=== PATIENT | male | born 1940 | race African-American/Black ===

== ENCOUNTER 2017-05-15 17:36 | Inpatient (IN) | payer MEDICARE ==
[2017-05-15 17:55] LABS: #Eosinphils 0.1 thou/uL (0.0-0.7); #Lymphocytes 2.1 thou/uL (1.20-3.40); #Monocytes 0.7 thou/uL (0.11-0.59); #Neutrophils 9.1 thou/uL (1.40-6.50); %Basophils 0.2 % (0.0-1.0); %Eosinophils 0.9 % (0.0-10.0); %Lymphocytes 17.5 % (21.0-51.0); %Monocytes 5.8 % (0.0-10.0); %Neutrophils 75.7 % (42.0-75.0); Hemoglobin 13.7 g/dL (14.0-18.0); Mean Corpuscular HGB CONC 32.6 g/dL (32.0-36.0); Mean Corpuscular Hemoglobin 29.4 pg (27.0-31.0); Mean Corpuscular Volume 90.4 fl (80.0-94.0); Mean Platelet Volume 7.1 fL (7.4-10.4); Platelet Count 543 thou/uL (130-400); RBC Distribution Width 14.2 % (11.5-14.5); Red Blood Cell (RBC) Count 4.65 mill/uL (4.70-6.10)
[2017-05-15 18:00] LABS: INR-International Normal Ratio 1.1; PTT 30.9 SEC (22.9-36.1)
[2017-05-15] MEDS ORDERED: niCARdipine 20MG In NaCl 20 MG/200 ML BAG ONE (18:00)
[2017-05-15 18:09] LABS: ALT (SGPT) 31 U/L (8-55); AST (SGOT) 28 U/L (5-34); Albumin 3.9 g/dL (3.4-4.8); Alkaline Phosphatase 90 U/L (40-150); Anion Gap 12 mmol/L (10-20); BUN (Urea Nitrogen) 18 mg/dL (8.4-25.7); Bilirubin, Total 0.4 mg/dL (0.2-1.2); Calc. Creatinine Clearance 0 mL/min (70-130); Calcium 9.4 mg/dL (7.8-10.44); Carbon Dioxide 26 mmol/L (23-31); Chloride 105 mmol/L (98-107); Estimated GFR-MDRD 67; Globulin 3.6 g/dL (2.4-3.5); Glucose 95 mg/dL (83-110); Protein, Total 7.5 g/dL (5.8-8.1); Sodium 139 mmol/L (136-145)
[2017-05-15 18:14] LABS: CKMB 1.7 ng/mL (0-6.6); Troponin I 0.014 ng/mL (< 0.028)
[2017-05-15 18:37] LABS: Magnesium 2.1 mg/dL (1.6-2.6)
--- NOTE | 2017-05-15 19:21 | CT ---
HEAD CT NONCONTRAST 05/15/17 Reference is made to 12/14/15. INDICATION: Acute stroke. Altered mental status. Unconscious patient. FINDINGS: There is a moderate sized acute hemorrhagic nidus centered at the left thalamus with surrounding vaso genic edema. There is dissection of blood into the ventricular system. There is slight rightward amber ation of the septum pellucidum as result of mass effect from the intrathalamic hemorrhage. Mild promi nence of the ventricular system also present. There is mild chronic microvascular ischemic disease. S uperimposed cavitary lacunar infarctions are seen within the bilateral deep cerebral white matter. There is focal area of hypodensity at the posterior left cerebellar hemisphere indicating lacunar inf arction. IMPRESSION: Evidence to indicate acute, hypertensive hemorrhage, centered at the left thalamus, with dissection o f blood into the ventricular system. Mild associated prominence of ventricular system present and the re is a slight rightward deviation of the posterior aspect of the septum pellucidum from direct mass effect by the intrathalamic hemorrhage. Telephone call of findings placed to physician Santos Sanchez of the Emergency Room at 1755 hours, . Code CR POS: [facility]
--- NOTE | 2017-05-15 19:26 | RAD ---
FRONTAL VIEW CHEST 05/15/17 INDICATION: Stroke. FINDINGS: No consolidation or effusion. The cardiomediastinal silhouette is stable. Prior patchy density at rig ht lung base has decreased. No additional significant interval change. IMPRESSION: No focal consolidation. Chest otherwise grossly stable to 12/14/15 exam. POS: [facility]
[2017-05-15] MEDS ORDERED: Ondansetron PF 4 MG/2 ML Vial IVP PRN (19:34)
[2017-05-15] MEDS ORDERED: niCARdipine 20MG in NaCl 200 ML BAG IVPB PRN (19:34)
--- NOTE | 2017-05-15 20:07 | HP ---
HISTORY OF PRESENT ILLNESS: Mr. Musa is a 77-year-old man who was brought to the [facility] cy Department by EMS after his saw him slumped in a chair and lose consciousness at home. This occurred at roughly 5 o'clock this evening. He was then transported where a CT scan was performed in the emergency department that revealed a left-sided deep thalamic hemorrhage with hemorrhage measuri ng roughly 2.5 x 3.5 cm with an estimated volume of around 15 mL. ICH score I would grade a 2 based on imaging and GCS. He does have a past medical history of Plavix and aspirin and platelets have alr yumiko been administered for this purpose. His blood pressure was at 198 systolic and a Cardene drip w as started with parameters to keep it below 170 and above 160 systolic. PAST MEDICAL HISTORY: Significant for cardiovascular disease, diabetes type 1, hypertension, and hyp othyroidism. PAST SURGICAL HISTORY: Pacemaker implantation. SOCIAL HISTORY: The patient has no smoking history. Denies alcohol use. ALLERGIES: No known drug allergies. CURRENT MEDICATIONS: Aspirin, hydrochlorothiazide, atorvastatin, terazosin, Plavix, Levemir. PHYSICAL EXAMINATION: NEUROLOGIC: The patient is somnolent at bedside, though arouses when spoken to. He attempts to open his eyes when you speak his name. He will follow commands with the left upper and left lower extrem ities and exhibits good strength in both. His pupils are equally round and reactive to light. His e xtraocular movements are intact. He is hemiparetic on the right with no real function on the right u pper and right lower extremity other than some retained minimal movement in the right shoulder. He d oes not speak, but utters guttural noises when spoken to or asked questions. I would grade his GCS a t 12. ASSESSMENT: Intracerebral hemorrhage with ventricular extension into the left occipital horn. PLAN: Mr. Musa will be admitted to the ICU with q.1 hour neuro checks. We will also consult the sd dicine service for the purpose of medical management. He will continue the Cardene drip to target 17 0-160 systolic pressures. His head of bed will remain elevated at 30 degrees. We will repeat scan a t 10:30 this evening and continue to monitor his neurologic status. I do not anticipate any surgical intervention at this time. The only concern I have is the potential of hydrocephalus developing bec ause of the intraventricular extension and because of location of the hemorrhage. If he does acutely decline, we will plan to place an intraventricular catheter with family's consent. Otherwise, we wi ll continue to follow along and manage medically. I do not think he needs any mannitol or other steve ures for intracranial pressure given the amount of space that he has intracranially from cortical atr ophy as well as the minimal presence of midline shift at the septum pellucidum which may be measured at 1 mm most. Mal Collins PA-C, dictating for Dr. Whaley.
--- NOTE | 2017-05-15 20:36 | CT ---
CT OF HEAD NONCONTRAST 05/15/17 INDICATION: Intracranial hemorrhage. FINDINGS: Redemonstration of acute hemorrhage centered at the left thalamus with extension of intraventricular hemorrhage. Interventricular hemorrhage is slightly increased in volume predominantly layering within each occipital horn. Surrounding vasogenic edema again seen. Mild rightward deviation of posterior a spect of septum pellucidum and slight effacement of the third ventricle present as direct mass effect from the thalamic hemorrhage. No additional significant interval change. IMPRESSION: Re-demonstration of acute hypertensive hemorrhage centered at the left thalamus with slight increase in degree of volume of interventricular hemorrhage. Ventricular system remains prominent. POS: [facility]
[2017-05-15 20:53] LABS: Actual Bicarbonate (HCO3a) 27.4 mEq/L (22-26); Base Excess (BEa) 2.6 mEq/L (0 (+/-) 2.5); CO2 Tension 43.1 mmHg (35.0-45.0); Carboxyhemoglobin (COHb) 1.2 gm% (0.0-3.0); Hematocrit-ABG 39.7 % (42.0-52.0); Hemoglobin (Hb) 13.1 g/dL (14.0-18.0); O2 Tension (PaO2) 86.1 mmHg (80.0-100.0); pH, Arterial 7.42 (7.35-7.45)
[2017-05-15 20:54] LABS: ALV-art Gradient 59.665 (0-20); Analyzer IN Cardio ER; Calcium, Ionized 1.2 mmol/L (1.12-1.30); Potassium - ABG Lab 3.1 mmol/L (3.70-5.30); Puncture Site RRA
[2017-05-15] MEDS: niCARdipine HCl 25 MG in Sodium Chloride 0.9% 250 ML 240 ML IVPB PRN (22:45)
[2017-05-15] MEDS: Sodium Chloride 0.9% 1,000 ML IV SCH (22:57)
[2017-05-16 05:28] LABS: #Eosinphils 0.1 thou/uL (0.0-0.7); #Lymphocytes 1.4 thou/uL (1.20-3.40); #Monocytes 0.9 thou/uL (0.11-0.59); #Neutrophils 13.2 thou/uL (1.40-6.50); %Basophils 0.2 % (0.0-1.0); %Eosinophils 0.5 % (0.0-10.0); %Monocytes 5.8 % (0.0-10.0); %Neutrophils 84.6 % (42.0-75.0); Hemoglobin 15.1 g/dL (14.0-18.0); Mean Corpuscular HGB CONC 32.8 g/dL (32.0-36.0); Mean Corpuscular Hemoglobin 29.7 pg (27.0-31.0); Mean Corpuscular Volume 90.5 fl (80.0-94.0); Mean Platelet Volume 7.3 fL (7.4-10.4); Platelet Count 628 thou/uL (130-400); RBC Distribution Width 14.3 % (11.5-14.5); White Blood Cell (WBC) Count 15.6 thou/uL (4.8-10.8)
[2017-05-16 05:45] LABS: Anion Gap 15 mmol/L (10-20); BUN (Urea Nitrogen) 11 mg/dL (8.4-25.7); Calc. Creatinine Clearance 76 mL/min (70-130); Calcium 9.4 mg/dL (7.8-10.44); Carbon Dioxide 23 mmol/L (23-31); Chloride 107 mmol/L (98-107); Estimated GFR-MDRD Greater than 90; Glucose 109 mg/dL (83-110); Potassium 3.6 mmol/L (3.5-5.1); Sodium 141 mmol/L (136-145)
[2017-05-16] MEDS: niCARdipine HCl 25 MG in Sodium Chloride 0.9% 250 ML 240 ML IVPB PRN ×3 (07:51→18:15)
[2017-05-16] MEDS: Sodium Chloride 0.9% 1,000 ML IV SCH ×2 (08:13→18:16)
[2017-05-16] MEDS ORDERED: Prevnar 13-Val Conj/PF 0.5 ML SYRINGE IM ONE (09:00)
[2017-05-16] MEDS ORDERED: FLU VACC TS2017-18 (>65YR) 0.5 ML SYRINGE IM ONE (09:00)
--- NOTE | 2017-05-16 10:33 | PRG ---
DATE OF SERVICE: 05/16/2017 Mr. Musa is a 77-year-old gentleman admitted for thalamic hemorrhage on the left. He was admitted t o the ICU for blood pressure management. He has had 2 CT scans since admission, which reveal stabili ty in the size of the hemorrhage. He does have ventricular prominence, but I believe this most likel y represents ex-vacuo ventriculomegaly rather than hydrocephalus given his temporal horns are for the most part normal in size. He is at risk for obstructive hydrocephalus given the location of the hem orrhage relative to the third ventricle. We will continue to monitor this. At this time, there are no surgical plans for Mr. Musa. We will need to undergo medical management with blood pressure cont rol and work toward disposition. There has been no family present. We have made attempts to contact them. We will continue to do so. We have also consulted our colleagues in [place] to transition care management of Mr. Musa.
--- NOTE | 2017-05-16 12:23 | PRG ---
DATE OF SERVICE: 05/16/2017 SUBJECTIVE: Mr. Musa is a 77-year-old man, who was admitted last night for acute left thalamic hemo rrhage. This morning, he is essentially stable. He arouses whenever spoken to. He moves his left u pper and left lower extremities spontaneously. He does attempt to open his eyes when spoken to, but does not open this. His pupils are equally round and reactive to light. Extraocular movements are i ntact. He is still hemiparetic in the right upper and right lower extremities; however, he has a lit tle bit more movement in the shoulder girdle in the right upper extremity. He does follow commands f or me. GCS still grade about under 11. He does not verbalize and just grunts. PLAN: Plan will be to continue pursue medical control of his blood pressure and to monitor his neuro logic status closely given the location of the hemorrhage and the possibility of acute hydrocephalus. Consultation to [facility] is in place. We will await their input on his medical management.
--- NOTE | 2017-05-16 14:12 | RAD ---
ABDOMEN 1 VIEW: HISTORY: Dobbhoff placement. FINDINGS: Visualized bowel gas pattern is nonspecific. Calcifications overlie the arterial structures. Metallic tip of the Dobbhoff feeding catheter overlies the gastric cardia. IMPRESSION: Advancing the feeding catheter approximately 10 cm would likely result in better positioning. POS: [facility]
--- NOTE | 2017-05-16 22:18 | CON ---
DATE OF CONSULTATION: 05/16/2017 HISTORY OF PRESENT ILLNESS: Mr. Musa is a 77-year-old male, who was brought to [facility] by emergency medical services, because of his finding him down. He has had a significant brain hemorrhage and has ventricular extension. His blood pressure is being managed with Cardene drip. He is in no distress. PAST MEDICAL HISTORY: Remarkable for diabetes, hypertension, hypothyroidism, and a pacemaker. SOCIAL HISTORY: He is a nonsmoker, nondrinker. FAMILY HISTORY: Non contributory ALLERGIES: He has no drug allergies. REVIEW OF SYSTEMS: 10 point system review otherwise negative. MEDICATIONS: He is on aspirin, hydrochlorothiazide, atorvastatin, terazosin, Plavix, and insulin prior to admission. PHYSICAL EXAMINATION: VITAL SIGNS: Blood pressure is 176/83, it is on a Cardene drip; heart rate is 111; respiratory rate in 20s; oximetry is 99% on 2 liters. NECK: Without lymphadenopathy. LUNGS: Clear. HEART: Regular rhythm. S1 and S2 are normal. ABDOMEN: Soft and nontender. EXTREMITIES: Without asymmetry. LABORATORY DATA: White count 15.6, hemoglobin 15.1, platelets 628,000. Electrolytes are normal. IMPRESSION: 1. Hemorrhagic cerebrovascular accident. 2. Thrombocytosis of unclear etiology. He has normocytic indices. This may be reactive from cytosis. It could also be paraneoplastic. In any event, the major issue at hand is the brain hemorrhage. His prognosis long-term is probably quite poor. I will be happy to follow while he is in the Critical Care Unit. This is a 50-minute consult, at least 50% of the time was spent coordinating care on the unit. CO[facility]
[2017-05-17] MEDS: niCARdipine HCl 25 MG in Sodium Chloride 0.9% 250 ML 240 ML IVPB PRN ×2 (06:00→10:56)
--- NOTE | 2017-05-17 07:38 | PRG ---
DATE OF SERVICE: 05/17/2017 SUBJECTIVE: Mr. Musa is on the third day of his hospital admission since presenting late Thursday rosaura wenceslao in the emergency department for deep thalamic hemorrhage. His examination remains stable. He a ttempts to open his eyes when spoken to. He is still hemiparetic on the right, but has good strength in the upper and lower extremities on the left and follows commands there, he still grunts, his airw ay has been protected. He is still within the time frame that he can progress into obstructive hydro cephalus and will need to continue to be monitored, but we may be approaching the point where we can likely transition him out of the ICU. I do not know that this will happen in the next 24-48 hours, b ut will discuss with Dr. Whaley for further planning purposes. This is Mal Collins PA-C dictating for Dr. Whaley.
[2017-05-17] MEDS: ADMIXTURE FEE IVPB PRN ×2 (14:47→19:32)
[2017-05-17] MEDS: SODIUM CHLORIDE IVPB PRN ×2 (14:47→19:32)
[2017-05-17] MEDS: NICARDIPINE HCL IVPB PRN ×2 (14:47→19:32)
--- NOTE | 2017-05-17 14:53 | PRG ---
DATE OF SERVICE: 05/17/2017 SUBJECTIVE: Mr. Musa responds. He tends to open his eyes to sternal rub, but he is not spontaneous ly moving. He still has corenals. He is still protecting his airway. He has a Dobbhoff tube in sara ce. OBJECTIVE: VITAL SIGNS: Blood pressure 159/59, heart rate is 106, oximetry is 98 on nasal cannula oxygen. LUNGS: Clear. HEART: Regular rhythm. ABDOMEN: Soft and nontender. EXTREMITIES: Without asymmetry. LABORATORY DATA: There is no lab today. RADIOGRAPHIC STUDIES: There is no radiograph today. IMPRESSION: 1. Hemorrhagic cerebrovascular accident. 2. Thrombocytosis, unclear etiology. 3. Hypertension, on a Cardene drip. 4. Diabetes. 5. History of hypothyroidism. 6. History of pacemaker. PLAN: Continue supportive care per Neurosurgery's input.
--- NOTE | 2017-05-17 16:41 | CON ---
DATE OF CONSULTATION: 05/17/2017 CONSULTING PHYSICIAN: Dr. Whaley, Neurosurgery. REASON FOR CONSULTATION: Medical management. HISTORY OF PRESENT ILLNESS: The patient is a 77-year-old -[place] male who was found unrespo nsive, was brought to the emergency room by ambulance and he was found to have acute hemorrhagic CVA. At the time of evaluation, his blood pressure was up to 196/92 and pulse was 73. The patient was s tarted on Cardene drip with parameters to keep it below 160 and was transferred to intensive care [facility]. Medical team was asked to see the patient for further management of his medical issues. PAST MEDICAL HISTORY: 1. Positive for cardiovascular disease. 2. Diabetes mellitus. 3. Hypertension. 4. Hypothyroidism. 5. History of multiple strokes 6. Dementia. 7. Coronary artery disease, post coronary artery stents. 8. Pacemaker/defibrillator. PAST SURGICAL HISTORY: Pacemaker/defibrillator and coronary stenting. SOCIAL HISTORY: Unknown current tobacco and alcohol use. MEDICATIONS: At least to be established, the family is supposed to bring the list of the medicine he was taking, but we know that he was on Plavix at least and aspirin, which was likely contributed to this hemorrhagic stroke. REVIEW OF SYSTEMS: Unobtainable secondary to patient's mental condition. PHYSICAL EXAMINATION: GENERAL: He is in deep coma. He is non arousable. VITAL SIGNS: Blood pressure is 155/63, pulse is 110, respiratory rate is 19, and pulse oximetry is 9 7% on 2 liters by nasal cannula. He withdraws his left upper and lower extremity from painful stimul i. He does not withdraws the right side to painful stimuli at all. HEENT: His pupils approximately 1-2 mm in size, they do not respond to light almost at all. There i s not any communication with him. He is in deep coma. LUNGS: Clear. NECK: Supple. HEART: S1, S2 normal. No S3, no S4, no any murmur. ABDOMEN: Soft, nontender, nondistended. EXTREMITIES: No clubbing, cyanosis or edema. Pulses on both tibialis posterior and dorsalis pedis a rteries significantly diminished on both feet NEUROLOGICAL: He is in deep coma, non arousable, withdrawals to pain stimuli on the left side upper and lower extremity. LABORATORY DATA: He had none today, last lab work from yesterday showed white count of 15.6. Normal hemoglobin, normal hematocrit, and neutrophils 84, and platelet count is 628, normal chemistry and a normal calcium. IMPRESSION: 1. Hemorrhagic cerebrovascular accident. 2. Diabetes mellitus. 3. Hypertension, on Cardene drip. 4. Thrombocytosis, on lung clear etiology. 5. Pacemaker/defibrillator. 6. History of multiple strokes in the past. PLAN: To continue supportive care. Continue Cardene drip, maintain the blood pressure systolic less than 160. He has Dobhoff in his right nostril, most likely we would start feeding him tomorrow if h e does not improve. He had still glucose levels done since he was admitted and they both are perfect . I will start him on mild sliding scale with Humalog. We will check it before each meal when he is on any feeding. We will continue current regimen. We will continue his DVT prophylaxis with sequen tial compression devices.
[2017-05-17] MEDS: Sodium Chloride 0.9% 1,000 ML IV SCH (17:50)
[2017-05-18] MEDS: Sodium Chloride 0.9% 1,000 ML IV SCH ×2 (05:05→16:00)
[2017-05-18] MEDS: SODIUM CHLORIDE IVPB PRN ×3 (05:06→20:47)
[2017-05-18] MEDS: NICARDIPINE HCL IVPB PRN ×3 (05:06→20:47)
[2017-05-18] MEDS: ADMIXTURE FEE IVPB PRN ×3 (05:06→20:47)
--- NOTE | 2017-05-18 08:23 | PRG ---
DATE OF SERVICE: 05/18/2017 Mr. Musa is a 77-year-old gentleman who continues to recover from intraparenchymal deep thalamic hem orrhage on the left. He presented 3 days ago. He remains in the ICU. He has been stable hemodynami jefferson. He remains awake. He grunts and opens his eyes, but does not converse. He has movement on t he left-sided and follow to command. He does not move the right side. The plan from a neurosurgical perspective will be to relinquish care to our hospitalist service on Mr Aldo Musa. I did not perceive the need for surgery or a ventriculostomy. From my perspective, he can transition to the stroke unit off of the ICU once our Hospitalist Service and Pulmonary Critical Care Service deem it is safe to do so from a blood pressure and respiratory perspective.
[2017-05-18 08:26] LABS: Hemoglobin 16.1 g/dL (14.0-18.0); Mean Corpuscular HGB CONC 27.9 g/dL (32.0-36.0); Mean Corpuscular Volume 89.5 fl (80.0-94.0); Mean Platelet Volume 7.4 fL (7.4-10.4); Platelet Count 378 thou/uL (130-400); RBC Distribution Width 14.8 % (11.5-14.5); RBC Morphology Normal; Red Blood Cell (RBC) Count 6.45 mill/uL (4.70-6.10); White Blood Cell (WBC) Count 17.1 thou/uL (4.8-10.8)
[2017-05-18 10:04] LABS: Chloride 112 mmol/L (98-107); Potassium 4.8 mmol/L (3.5-5.1); Sodium 139 mmol/L (136-145)
[2017-05-18 10:05] LABS: Calcium 8.3 mg/dL (7.8-10.44); Glucose 221 mg/dL (83-110)
[2017-05-18 10:07] LABS: Anion Gap 15 mmol/L (10-20); Carbon Dioxide 17 mmol/L (23-31)
[2017-05-18 10:09] LABS: BUN (Urea Nitrogen) 18 mg/dL (8.4-25.7); Calc. Creatinine Clearance 67 mL/min (70-130); Estimated GFR-MDRD Greater than 90
--- NOTE | 2017-05-18 12:15 | PRG ---
DATE OF SERVICE: 05/18/2017 Mr. Musa remains stable. He is still hemiplegic. He is handling his secretions at this time. He w ill open his eyes. PHYSICAL EXAMINATION: VITAL SIGNS: Heart rate 102, blood pressure 155/60, respiratory rate 16. Oximetry is 97. LUNGS: L ungs are clear anteriorly. HEART: Regular rhythm. ABDOMEN: Soft. LABORATORY DATA: White count 17.1, hemoglobin 16.1, platelets 378. Sodium 139, potassium 4.8, chloride 112, bicarb 17, BUN 18, creatinine 0.96, glucose 221. IMPRESSION: Hemorrhagic cerebrovascular accident. I talked to the about life support should his respiratory status decline. She, after a long dis cussion with her, decided she does not want him ever on mechanical ventilation. We will continue aggressive supportive care short of intubation and CPR. This is in accordance with her wishes and what she feels would be her wishes. The biggest problem is prior to this he h ad significant dementia, was totally dependent on her for day-to-day activities.
--- NOTE | 2017-05-18 13:17 | PDOC.PN ---
- Subjective Encounter Start Date: 05/18/17 Encounter Start Time: 13:20 -: non-verbal Subjective: No acute evens overnight. -: On nicardipine drip - Objective Resuscitation Status: Resuscitation Status DNR:Do Not Resuscitate MAR Reviewed: Yes Vital Signs & Weight: Vital Signs (12 hours) Temp Pulse Resp Pulse Ox 05/18/17 12:00 96 05/18/17 08:00 98.8 F 103 H 17 96 05/18/17 04:00 98.6 F Weight Admit Weight 167 lb Weight 167 lb 12.348 oz Most Recent Monitor Data Heart Rate from ECG 102 NIBP 152/65 NIBP BP-Mean 79 Respiration from ECG 16 SpO2 97 I&O: 05/17/17 05/18/17 05/19/17 06:59 06:59 06:59 Intake Total 2502 3593 Output Total 2208 1553 235 Balance 294 2040 -235 Result Diagrams: 05/18/17 06:58 05/18/17 07:46 Phys Exam - Physical Examination Constitutional: NAD HEENT: PERRLA, moist MMs, sclera anicteric Neck: supple, full ROM Respiratory: no wheezing, no rales, no rhonchi, clear to auscultation bilateral Cardiovascular: RRR, no significant murmur, no rub Gastrointestinal: soft, non-tender, no distention, positive bowel sounds Musculoskeletal: no edema, pulses present Unable to cooperate with exam. Spontaneous eye movement Skin: no rash, normal turgor Dx/Plan (1) Hemorrhagic cerebrovascular accident (CVA) Code(s): I61.9 - NONTRAUMATIC INTRACEREBRAL HEMORRHAGE, UNSPECIFIED Status: Acute Comment: Stable (2) Hypothyroidism Code(s): E03.9 - HYPOTHYROIDISM, UNSPECIFIED Status: Acute Qualifiers: Hypothyroidism type: unspecified Qualified Code(s): E03.9 - Hypothyroidism , unspecified (3) CAD (coronary artery disease) Code(s): I25.10 - ATHSCL HEART DISEASE OF [place] CORONARY ARTERY W/O ANG PCTRS Status: Chronic Qualifiers: Coronary Disease-Associated Artery/Lesion type: unspecified vessel or lesion type [place] vs. transplanted heart: [place] heart Associated angina: without angina Qualified Code(s): I25.10 - Atherosclerotic heart disease of [place] coronary artery without angina pectoris (4) DM type 2 (diabetes mellitus, type 2) Status: Chronic (5) Dementia Code(s): F03.90 - UNSPECIFIED DEMENTIA WITHOUT BEHAVIORAL DISTURBANCE Status: Chronic Qualifiers: Dementia type: unspecified type Dementia behavioral disturbance: without behavioral disturbance Qualified Code(s): F03.90 - Unspecified dementia without behavioral disturbance (6) HTN (hypertension) Code(s): I10 - ESSENTIAL (PRIMARY) HYPERTENSION Status: Chronic Qualifiers: Hypertension type: essential hypertension - Plan cont current plan of care, DVT proph w/SCDs Continue Nicardipine- wean off -: SCDs for prophylaxis -: No neurosurgical intervention -: Hypoglycemia protocol * .
[2017-05-18] MEDS ORDERED: Dextrose 5% in Water 1,000 ML IV PRN (13:18)
[2017-05-18] MEDS ORDERED: Sodium Bicarbonate Tab 325 MG TAB PER TUBE PRN (13:32)
[2017-05-18] MEDS ORDERED: Pancrelipase DR 12000 1 CAP FS PRN (13:32)
--- NOTE | 2017-05-18 13:35 | PRG ---
DATE OF SERVICE: 05/18/2017 Mr. Musa this morning is slightly improved neurologically. He is opening his eyes and grunting a li ttle more, although still not speaking and is still hemiparetic on the right. From a neurosurgical s tandpoint, he continues to be stable. I think we are getting close to a point where we can start to stepdown his care some and start planning a disposition. We will discuss this with the Hospitalist Peña driscoll as well.
[2017-05-18] MEDS: HumaLOG 300 UNITS/3 ML VIAL SC PRN ×2 (17:34→22:34)
[2017-05-19] MEDS: ADMIXTURE FEE IVPB PRN ×2 (03:30→09:13)
[2017-05-19] MEDS: SODIUM CHLORIDE IVPB PRN ×2 (03:30→09:13)
[2017-05-19] MEDS: NICARDIPINE HCL IVPB PRN ×2 (03:30→09:13)
[2017-05-19] MEDS: HumaLOG 300 UNITS/3 ML VIAL SC PRN ×4 (04:43→22:01)
[2017-05-19] MEDS: Sodium Chloride 0.9% 1,000 ML IV SCH ×2 (04:43→09:20)
[2017-05-19 06:16] LABS: Hemoglobin 12.6 g/dL (14.0-18.0); Lymphocytes 10 % (21-51); MDiff Complete? YES; Mean Corpuscular HGB CONC 32.8 g/dL (32.0-36.0); Mean Corpuscular Hemoglobin 29.4 pg (27.0-31.0); Mean Corpuscular Volume 89.9 fl (80.0-94.0); Mean Platelet Volume 7.3 fL (7.4-10.4); Monocytes 8 % (0-10); Neutrophil 81 % (42-75); PLT Morphology Comment Appears Increased; Platelet Count 615 thou/uL (130-400); RBC Distribution Width 14.2 % (11.5-14.5); Reactive Lymphocytes 1 % (0-10); Red Blood Cell (RBC) Count 4.27 mill/uL (4.70-6.10); White Blood Cell (WBC) Count 14.5 thou/uL (4.8-10.8)
[2017-05-19 06:39] LABS: Anion Gap 5 mmol/L (10-20); BUN (Urea Nitrogen) 16 mg/dL (8.4-25.7); Calc. Creatinine Clearance 71 mL/min (70-130); Calcium 8.7 mg/dL (7.8-10.44); Carbon Dioxide 27 mmol/L (23-31); Chloride 112 mmol/L (98-107); Estimated GFR-MDRD Greater than 90; Glucose 268 mg/dL (83-110); Magnesium 1.8 mg/dL (1.6-2.6); Potassium 3.2 mmol/L (3.5-5.1); Sodium 141 mmol/L (136-145)
[2017-05-19 07:56] LABS: #Basophils 0.1 thou/uL (0.0-0.2); #Eosinphils 0.1 thou/uL (0.0-0.7); #Lymphocytes 1.4 thou/uL (1.20-3.40); #Monocytes 0.9 thou/uL (0.11-0.59); #Neutrophils 11.3 thou/uL (1.40-6.50); %Basophils 0.4 % (0.0-1.0); %Eosinophils 0.7 % (0.0-10.0); %Lymphocytes 10.1 % (21.0-51.0); %Monocytes 6.7 % (0.0-10.0); %Neutrophils 82.1 % (42.0-75.0); Hemoglobin 13.5 g/dL (14.0-18.0); Mean Corpuscular HGB CONC 33.3 g/dL (32.0-36.0); Mean Corpuscular Hemoglobin 30.1 pg (27.0-31.0); Mean Corpuscular Volume 90.2 fl (80.0-94.0); Mean Platelet Volume 6.8 fL (7.4-10.4); Platelet Count 583 thou/uL (130-400); RBC Distribution Width 14.2 % (11.5-14.5); Red Blood Cell (RBC) Count 4.48 mill/uL (4.70-6.10); White Blood Cell (WBC) Count 13.8 thou/uL (4.8-10.8)
[2017-05-19] MEDS ORDERED: Potassium Chloride 40 MEQ in Sodium Chloride 0.9% 250 ML 250 ML IVPB SCH (08:00)
[2017-05-19 08:28] LABS: Anion Gap 10 mmol/L (10-20); BUN (Urea Nitrogen) 17 mg/dL (8.4-25.7); Calc. Creatinine Clearance 75 mL/min (70-130); Calcium 8.8 mg/dL (7.8-10.44); Carbon Dioxide 23 mmol/L (23-31); Chloride 113 mmol/L (98-107); Estimated GFR-MDRD Greater than 90; Glucose 290 mg/dL (83-110); Potassium 3.4 mmol/L (3.5-5.1); Sodium 143 mmol/L (136-145)
[2017-05-19] MEDS ORDERED: Dextrose 5% in Water 1,000 ML IV PRN (10:11)
[2017-05-19] MEDS ORDERED: Dextrose 50% Abboject 50 ML SYRINGE SLOW IVP PRN (10:11)
[2017-05-19] MEDS: Atenolol 50 MG TAB PO SCH ×2 (10:34→21:04)
--- NOTE | 2017-05-19 12:47 | PRG ---
DATE OF SERVICE: 05/19/2017 SUBJECTIVE: Mr. Musa was apparently verbalizing with the night nurse, but I could not get him to sa y a thing to me. He would spontaneously move his left and definitely move it to his sternal rub. He would open his eyes to sternal rub, but closes his eyes. OBJECTIVE: VITAL SIGNS: Heart rate is 80, blood pressure 140/59, respiratory rate is 21, oximetry is 96%. LUNGS: Clear. HEART: Regular rhythm. ABDOMEN: Soft and nontender. EXTREMITIES: Without asymmetry. LABORATORY DATA: White count 13.8, hemoglobin 13.5, platelets 583. Sodium 143, potassium 3.4, chloride 113, bicarb 23, BUN 17, creatinine 0.88. IMPRESSION: Hemorrhagic cerebrovascular, clinically stable. Continue to proceed with Dobbhoff tube. At some point, we will likely need a PEG.
--- NOTE | 2017-05-19 14:25 | PDOC.PN ---
- Subjective Encounter Start Date: 05/19/17 Encounter Start Time: 14:30 Subjective: No acute events overnight. - Objective Resuscitation Status: Resuscitation Status DNR:Do Not Resuscitate Vital Signs & Weight: Vital Signs (12 hours) Temp Pulse Resp BP Pulse Ox 05/19/17 10:34 100 159/61 H 05/19/17 08:00 99.1 F 110 H 21 H 98 05/19/17 07:00 99.1 F 05/19/17 06:00 98.5 F Weight Admit Weight 167 lb Weight 172 lb 6.424 oz Most Recent Monitor Data Heart Rate from ECG 85 NIBP 160/72 NIBP BP-Mean 85 Respiration from ECG 19 SpO2 96 I&O: 05/18/17 05/19/17 05/20/17 06:59 06:59 06:59 Intake Total 3593 4309 30 Output Total 1553 1675 550 Balance 2040 9319 -942 Result Diagrams: 05/19/17 07:48 05/19/17 07:48 Additional Labs: Accuchecks 05/19/17 05/19/17 05/18/17 09:19 04:38 22:33 POC Glucose 264 H 258 H 237 H 05/18/17 16:35 POC Glucose 202 H Phys Exam - Physical Examination Constitutional: NAD HEENT: PERRLA, moist MMs Neck: supple Respiratory: no wheezing, no rales, no rhonchi Cardiovascular: RRR, no significant murmur, no rub Gastrointestinal: soft, non-tender, no distention, positive bowel sounds Musculoskeletal: no edema, pulses present R hemiparesis Unable to respond to commands butmoving L extremities spontaneuously. Skin: no rash, normal turgor Dx/Plan (1) Hemorrhagic cerebrovascular accident (CVA) Code(s): I61.9 - NONTRAUMATIC INTRACEREBRAL HEMORRHAGE, UNSPECIFIED Status: Acute Comment: Stable. Being weaned off Nicardipine drip and started on home regimen for BP control. Feeding via dobhoff On [place]. (2) CAD (coronary artery disease) Code(s): I25.10 - ATHSCL HEART DISEASE OF [place] CORONARY ARTERY W/O ANG PCTRS Status: Chronic Qualifiers: Coronary Disease-Associated Artery/Lesion type: unspecified vessel or lesion type [place] vs. transplanted heart: [place] heart Associated angina: without angina Qualified Code(s): I25.10 - Atherosclerotic heart disease of [place] coronary artery without angina pectoris Comment: Stable. (3) DM type 2 (diabetes mellitus, type 2) Status: Chronic Qualifiers: Diabetes mellitus complication status: with hyperglycemia Diabetes mellitus jail insulin use: with jail use Qualified Code(s): E11.65 - Type 2 diabetes mellitus with hyperglycemia; Z79.4 - long-term (current) use of insulin; Z79.4 - termite technician (current) use of insulin; Z79.4 - long-term ( current) use of insulin; Z79.4 - termite technician (current) use of insulin Plan: Continue long acting insulin, advance to moderate sliding scale. (4) Dementia Code(s): F03.90 - UNSPECIFIED DEMENTIA WITHOUT BEHAVIORAL DISTURBANCE Status: Chronic Qualifiers: Dementia type: unspecified type Dementia behavioral disturbance: without behavioral disturbance Qualified Code(s): F03.90 - Unspecified dementia without behavioral disturbance Plan: Unchanged. Delirium precautions. (5) HTN (hypertension) Code(s): I10 - ESSENTIAL (PRIMARY) HYPERTENSION Status: Chronic Qualifiers: Hypertension type: essential hypertension Comment: Will start home regimen of atenolol, lisinopril/HCTZ (6) Hypokalemia Code(s): E87.6 - HYPOKALEMIA Status: Acute Comment: Replete. - Plan cont current plan of care Transfer to stroke unit once weaned off Nicardipine drip. * .
[2017-05-19] MEDS ORDERED: Potassium Chloride 40 MEQ in Sodium Chloride 0.9% 500 ML IVPB SCH (15:15)
--- NOTE | 2017-05-19 16:30 | PRG ---
DATE OF SERVICE: 05/19/2017 Mr. Musa continues to be stable from his previous exams, looks like hospitalist service is working o n and weaning him off the nicardipine. Neurosurgery at this time will sign off and transition care t o their service. Definitively no surgical management, but we will welcome reconsultation if patient precipitously declines. Mal Collins PA-C dictating for Dr. Whaley.
[2017-05-20] MEDS: Sodium Chloride 0.9% 1,000 ML IV SCH ×2 (01:53→12:49)
[2017-05-20] MEDS: HumaLOG 300 UNITS/3 ML VIAL SC PRN ×4 (04:54→21:33)
[2017-05-20 05:29] LABS: Anion Gap 8 mmol/L (10-20); BUN (Urea Nitrogen) 12 mg/dL (8.4-25.7); Calc. Creatinine Clearance 76 mL/min (70-130); Calcium 8.9 mg/dL (7.8-10.44); Carbon Dioxide 30 mmol/L (23-31); Chloride 107 mmol/L (98-107); Estimated GFR-MDRD Greater than 90; Glucose 259 mg/dL (83-110); Magnesium 1.7 mg/dL (1.6-2.6); Potassium 3.6 mmol/L (3.5-5.1); Sodium 141 mmol/L (136-145)
[2017-05-20 05:45] LABS: Band 6 % (5-11); Hemoglobin 12.7 g/dL (14.0-18.0); Lymphocytes 10 % (21-51); MDiff Complete? YES; Mean Corpuscular HGB CONC 32.6 g/dL (32.0-36.0); Mean Corpuscular Hemoglobin 29.5 pg (27.0-31.0); Mean Corpuscular Volume 90.5 fl (80.0-94.0); Mean Platelet Volume 7.1 fL (7.4-10.4); Monocytes 7 % (0-10); Neutrophil 77 % (42-75); Platelet Count 556 thou/uL (130-400); RBC Distribution Width 14.3 % (11.5-14.5); Red Blood Cell (RBC) Count 4.29 mill/uL (4.70-6.10); White Blood Cell (WBC) Count 13.4 thou/uL (4.8-10.8)
[2017-05-20] MEDS: Senokot S 8.6-50 MG TAB PO SCH (08:04)
[2017-05-20] MEDS: Lisinopril/Hydrochlorothiazide 20/25 mg Tablet PO SCH (08:04)
[2017-05-20] MEDS: Atenolol 50 MG TAB PO SCH ×2 (08:05→21:28)
[2017-05-20] MEDS: Tamsulosin HCl 0.4 MG CAP PO SCH (08:05)
[2017-05-20] MEDS: Atorvastatin Calcium 20 MG TAB PO SCH (08:08)
[2017-05-20] MEDS ORDERED: Non-Formulary Item 1 EACH (Levemir Flexpen [Levemir Flexpen] 30 UNIT) SC SCH (09:00)
[2017-05-20] MEDS ORDERED: Insulin Detemir 100 UNITS/ML 30 UNITS in Pre-Filled Syringe 1 EACH SC SCH (09:00)
[2017-05-20] MEDS ORDERED: Amlodipine 5 MG TAB PO SCH (13:30)
--- NOTE | 2017-05-20 13:46 | PDOC.PN ---
- Subjective Encounter Start Date: 05/20/17 Encounter Start Time: 13:45 Subjective: No acute events overnight. -: Weaned off nicardipine drip. - Objective Resuscitation Status: Resuscitation Status DNR:Do Not Resuscitate MAR Reviewed: Yes Vital Signs & Weight: Vital Signs (12 hours) Temp Pulse Resp BP Pulse Ox 05/20/17 13:35 83 175/75 H 05/20/17 12:00 98.4 F 05/20/17 08:05 83 175/75 H 05/20/17 08:04 83 175/75 H 05/20/17 08:00 98.2 F 05/20/17 07:36 99.0 F 83 16 95 05/20/17 04:00 99.0 F Weight Admit Weight 167 lb Weight 177 lb 4.016 oz Most Recent Monitor Data Heart Rate from ECG 82 NIBP 171/65 NIBP BP-Mean 128 Respiration from ECG 18 SpO2 93 I&O: 05/19/17 05/20/17 05/21/17 06:59 06:59 06:59 Intake Total 4309 4330 Output Total 1675 3970 1725 Balance 2634 360 -1725 Result Diagrams: 05/20/17 04:50 05/20/17 04:50 Additional Labs: Accuchecks 05/20/17 05/20/17 05/19/17 10:23 04:52 22:00 POC Glucose 246 H 224 H 210 H 05/19/17 15:39 POC Glucose 207 H Phys Exam - Physical Examination Constitutional: NAD HEENT: PERRLA, moist MMs, sclera anicteric Dobbhoff in place. Neck: no JVD, supple, full ROM Respiratory: no wheezing, no rales, no rhonchi, clear to auscultation bilateral Cardiovascular: RRR, no significant murmur Gastrointestinal: soft, non-tender, no distention, positive bowel sounds Musculoskeletal: no edema, pulses present Unable to cooperate w exam. Skin: no rash, normal turgor Dx/Plan (1) Hemorrhagic cerebrovascular accident (CVA) Code(s): I61.9 - NONTRAUMATIC INTRACEREBRAL HEMORRHAGE, UNSPECIFIED Status: Acute Comment: Stable. Nicardipinediscontinued, started on home regimen. Feeding via dobhoff On Statins. (2) CAD (coronary artery disease) Code(s): I25.10 - ATHSCL HEART DISEASE OF [place] CORONARY ARTERY W/O ANG PCTRS Status: Chronic Qualifiers: Coronary Disease-Associated Artery/Lesion type: unspecified vessel or lesion type [place] vs. transplanted heart: [place] heart Associated angina: without angina Qualified Code(s): I25.10 - Atherosclerotic heart disease of [place] coronary artery without angina pectoris Comment: Stable. (3) DM type 2 (diabetes mellitus, type 2) Status: Chronic Qualifiers: Diabetes mellitus complication status: with hyperglycemia Diabetes mellitus terminal press operator insulin use: with chcf use Qualified Code(s): E11.65 - Type 2 diabetes mellitus with hyperglycemia; Z79.4 - predatory animal exterminator (current) use of insulin; Z79.4 - predatory animal exterminator (current) use of insulin; Z79.4 - retirement ( current) use of insulin; Z79.4 - predatory animal exterminator (current) use of insulin Comment: Continue insulin regimen. Achieving better control. (4) Dementia Code(s): F03.90 - UNSPECIFIED DEMENTIA WITHOUT BEHAVIORAL DISTURBANCE Status: Chronic Qualifiers: Dementia type: unspecified type Dementia behavioral disturbance: without behavioral disturbance Qualified Code(s): F03.90 - Unspecified dementia without behavioral disturbance (5) HTN (hypertension) Code(s): I10 - ESSENTIAL (PRIMARY) HYPERTENSION Status: Chronic Qualifiers: Hypertension type: essential hypertension Comment: Continue atenolol, lisinopril/HCTZ (6) Hypokalemia Code(s): E87.6 - HYPOKALEMIA Status: Resolved Comment: Replete. - Plan cont current plan of care, PT/OT * .
--- NOTE | 2017-05-20 15:02 | PRG ---
DATE OF SERVICE: 05/20/2017 SUBJECTIVE: Mr. Musa neurologically changed very little. He will need a PEG at some point. OBJECTIVE: VITAL SIGNS: His heart rate 83, blood pressure 175/75, respiratory rate 20. LUNGS: Still protecting his airways. Lungs are clear. HEART: Regular rhythm. S1 and S2 are normal. ABDOMEN: Soft and nontender. EXTREMITIES: Without edema. LABORATORY DATA: White count 13.4, hemoglobin 12.7, platelets 556,000. Sodium 141, potassium 3.6, chloride 107, bicarb 30, BUN 12, creatinine 0.9, glucose 259. We started Norvasc this morning to replace the nicardipine. He has done well with mild elevation in his blood pressure today.
[2017-05-20] MEDS: Insulin Detemir 100 UNITS/ML 30 UNITS in Pre-Filled Syringe 1 EACH SC SCH (21:30)
--- NOTE | 2017-05-20 23:09 | CON ---
DATE: 05/20/2017 HISTORY OF PRESENT ILLNESS: Juan Musa Jr is a 77-year-old black male, who unfortunately has suffe red a hemorrhagic stroke with generalized flaccidness but has been extubated. I have been asked by Heidi Bartlett to place a PEG tube. Patient is a DNR, but the family is hoping for some recovery. The pat ient has been seen by Dr. Fernando Whaley, Dr. Bartlett, and Hospitalist Service. Patient has suffered a jeremiah p intraparenchymal thalamic hemorrhge on the left, presented in 05/15/2017. He has some movement on the left side and is able to follow commands, but does not move the right side at all. ALLERGIES: None. TOBACCO: None. ALCOHOL: None. PAST SURGICAL HISTORY: Pacemaker, left subclavian, and right hemicolectomy that I performed 12/14/19 16 with subsequent delayed closure of wound 12/17 for ischemic right colon severe inflammatory reacti on retroperitoneum right and drain placement PAST MEDICAL HISTORY: Type 1 diabetes, hypertension, hypothyroidism. Echocardiogram on 12/15/[address] Harvey. He had normal LV function. Pacemaker noted, mild MR, history of paroxysmal atrial fibrillation, history of Eliquis, history of coronary stent placement i n the past, LV function 50% to 55%. HOME MEDICATIONS: Plavix, atorvastatin, atenolol, aspirin, Avodart, Plavix, Flomax, lisinopril, hydr ochlorothiazide, Levemir, FlexPen 30 units subcu a.m., sliding scale insulin in the hospital. PHYSICAL EXAMINATION: GENERAL: Patient eyes open, feeding tube present nares. LUNGS: Clear to auscultation. CARDIAC: Regular rate and rhythm. ABDOMEN: Soft. Pacemaker left chest. EXTREMITIES: Unremarkable. LABORATORY DATA: White count 13, hemoglobin 12. Sodium 141, potassium 3.6, BUN 12, creatinine 0.9. Pathology reveals acute perforated appendicitis with appendiceal and perirectal abscess, necrosis of the appendix, cecum, focal area of ileal stricture, viable margins. ASSESSMENT AND PLAN: 1. Stroke with severe hemiplegia, plan PEG tube placement. Risks and benefits explained, family con sents. 2. Other medical problems as noted above.
[2017-05-21] MEDS: Sodium Chloride 0.9% 1,000 ML IV SCH ×3 (04:33→20:28)
[2017-05-21 05:11] LABS: Anion Gap 8 mmol/L (10-20); BUN (Urea Nitrogen) 12 mg/dL (8.4-25.7); Calc. Creatinine Clearance 74 mL/min (70-130); Calcium 9.4 mg/dL (7.8-10.44); Carbon Dioxide 36 mmol/L (23-31); Chloride 100 mmol/L (98-107); Estimated GFR-MDRD Greater than 90; Glucose 92 mg/dL (83-110); Magnesium 1.8 mg/dL (1.6-2.6); Potassium 3.1 mmol/L (3.5-5.1); Sodium 141 mmol/L (136-145)
[2017-05-21 05:27] LABS: Band 1 % (5-11); Hemoglobin 12.5 g/dL (14.0-18.0); Lymphocytes 15 % (21-51); MDiff Complete? YES; Mean Corpuscular HGB CONC 32.3 g/dL (32.0-36.0); Mean Corpuscular Hemoglobin 29.2 pg (27.0-31.0); Mean Corpuscular Volume 90.4 fl (80.0-94.0); Monocytes 2 % (0-10); Neutrophil 81 % (42-75); PLT Morphology Comment Appears Increased; Platelet Count 540 thou/uL (130-400); RBC Distribution Width 14.2 % (11.5-14.5); RBC Morphology Normal; Reactive Lymphocytes 1 % (0-10); Red Blood Cell (RBC) Count 4.29 mill/uL (4.70-6.10); White Blood Cell (WBC) Count 12.5 thou/uL (4.8-10.8)
[2017-05-21] MEDS: Amlodipine 10 MG TAB PO SCH (08:50)
[2017-05-21] MEDS: Atenolol 50 MG TAB PO SCH ×2 (08:50→23:50)
[2017-05-21] MEDS: Lisinopril/Hydrochlorothiazide 20/25 mg Tablet PO SCH (08:51)
[2017-05-21] MEDS: Tamsulosin HCl 0.4 MG CAP PO SCH (08:51)
[2017-05-21] MEDS: Atorvastatin Calcium 20 MG TAB PO SCH (08:52)
[2017-05-21] MEDS: Insulin Detemir 100 UNITS/ML 30 UNITS in Pre-Filled Syringe 1 EACH SC SCH ×2 (08:52→20:32)
[2017-05-21] MEDS: Senokot S 8.6-50 MG TAB PO SCH (08:53)
[2017-05-21] MEDS ORDERED: Amlodipine 5 MG TAB PO SCH (09:00)
[2017-05-21] MEDS ORDERED: Potassium Chloride 40 MEQ in Sodium Chloride 0.9% 250 ML 250 ML IVPB SCH (09:30)
[2017-05-21] MEDS: Dextrose 50% Abboject 50 ML SYRINGE SLOW IVP PRN ×2 (09:54→15:47)
--- NOTE | 2017-05-21 12:38 | PDOC.PN ---
- Subjective Encounter Start Date: 05/21/17 Encounter Start Time: 12:37 -: non-verbal Subjective: No acute events overnight. Clinical condition unchanged - Objective Resuscitation Status: Resuscitation Status DNR:Do Not Resuscitate MAR Reviewed: Yes Vital Signs & Weight: Vital Signs (12 hours) Temp Pulse Pulse Pulse Resp BP BP 05/21/17 12:00 98.9 F 05/21/17 08:51 69 161/71 H 05/21/17 08:50 69 104 H 120 H 161/71 H 161/71 H 05/21/17 07:40 99.1 F 71 19 05/21/17 07:34 72 71 132/70 05/21/17 07:04 05/21/17 05:05 99.1 F BP Pulse Ox Pulse Ox Pulse Ox 05/21/17 12:00 05/21/17 08:51 05/21/17 08:50 157/66 H 94 L 05/21/17 07:40 94 L 05/21/17 07:34 156/67 H 95 95 05/21/17 07:04 92 L 05/21/17 05:05 Weight Admit Weight 167 lb Weight 166 lb 8 oz Most Recent Monitor Data Heart Rate from ECG 70 NIBP 134/66 NIBP BP-Mean 91 Respiration from ECG 17 SpO2 96 I&O: 05/20/17 05/21/17 05/22/17 06:59 06:59 06:59 Intake Total 4330 2904 Output Total 3970 4500 760 Balance 041 -3615 -631 Result Diagrams: 05/21/17 04:40 05/21/17 04:40 Additional Labs: Accuchecks 05/21/17 05/21/17 05/20/17 09:53 04:41 21:29 POC Glucose 62 L 89 159 H 05/20/17 15:56 POC Glucose 238 H Phys Exam - Physical Examination Constitutional: NAD HEENT: PERRLA, moist MMs, sclera anicteric Neck: no JVD, supple Respiratory: no wheezing, no rales, clear to auscultation bilateral Cardiovascular: RRR, no significant murmur, no rub Gastrointestinal: soft, non-tender, no distention, positive bowel sounds Musculoskeletal: edema present (R arm) Neurological: non-focal, moves all 4 limbs Skin: no rash, normal turgor Dx/Plan (1) Hemorrhagic cerebrovascular accident (CVA) Code(s): I61.9 - NONTRAUMATIC INTRACEREBRAL HEMORRHAGE, UNSPECIFIED Status: Acute Comment: Stable. Feeding via dobhoff On Statins. (2) CAD (coronary artery disease) Code(s): I25.10 - ATHSCL HEART DISEASE OF [place] CORONARY ARTERY W/O ANG PCTRS Status: Chronic Qualifiers: Coronary Disease-Associated Artery/Lesion type: unspecified vessel or lesion type [place] vs. transplanted heart: [place] heart Associated angina: without angina Qualified Code(s): I25.10 - Atherosclerotic heart disease of [place] coronary artery without angina pectoris Comment: Stable. (3) DM type 2 (diabetes mellitus, type 2) Status: Chronic Qualifiers: Diabetes mellitus complication status: with hyperglycemia Diabetes mellitus predatory animal exterminator insulin use: with predatory animal exterminator use Qualified Code(s): E11.65 - Type 2 diabetes mellitus with hyperglycemia; Z79.4 - snf (current) use of insulin; Z79.4 - predatory animal exterminator (current) use of insulin; Z79.4 - snf ( current) use of insulin; Z79.4 - snf (current) use of insulin Comment: Continue insulin regimen. (4) Dementia Code(s): F03.90 - UNSPECIFIED DEMENTIA WITHOUT BEHAVIORAL DISTURBANCE Status: Chronic Qualifiers: Dementia type: unspecified type Dementia behavioral disturbance: without behavioral disturbance Qualified Code(s): F03.90 - Unspecified dementia without behavioral disturbance (5) HTN (hypertension) Code(s): I10 - ESSENTIAL (PRIMARY) HYPERTENSION Status: Chronic Qualifiers: Hypertension type: essential hypertension Comment: Continue atenolol, lisinopril/HCTZ, amlodipine (6) Hypokalemia Code(s): E87.6 - HYPOKALEMIA Status: Acute Comment: Replete. - Plan cont current plan of care, PT/OT, DVT proph w/SCDs * .
--- NOTE | 2017-05-21 16:47 | PRG ---
DATE OF SERVICE: 05/21/2017 SUBJECTIVE: Mr. Musa is clinically unchanged. He successfully had a PEG placed today. OBJECTIVE: NEUROLOGIC: He is about the same. LUNGS: Clear. HEART: Regular rhythm. S1 and S2 are normal. ABDOMEN: Soft and nontender. LABORATORY DATA: White count 12.5, hemoglobin 12.5, platelets 540. Sodium 141, potassium 3.1, chloride 100, bicarbonate 36, BUN 12, creatinine 0.87, glucose 92 this mor wenceslao. Intake and outputs negative 1596. IMPRESSION: 1. Status post hypertensive bleed. 2. Status post PEG placement for swallowing dysfunction as expected. 3. Thrombocytosis, unclear etiology. 4. Mild metabolic alkalosis ? because of negative fluid balance. PLAN: Continue supportive care. Start utilizing his PEG once surgery says it is okay. The next tad p will be placement. His prognosis is quite poor. His understands that. He remains a do not r esuscitate patient. We will continue with aggressive care short of heroic measures.
--- NOTE | 2017-05-21 17:40 | OP ---
DATE OF PROCEDURE: 05/21/2017 PREOPERATIVE DIAGNOSES: Stroke, dysphagia, malnutrition. POSTOPERATIVE DIAGNOSES: Stroke, dysphagia, malnutrition. PROCEDURE: Percutaneous endoscopic gastrostomy tube. SURGEON: Cornelio Reynoso M.D. ANESTHESIA: Local 1% Xylocaine. PROCEDURE IN DETAIL: At the patient's bedside in ICU, endoscope placed per os under direct visualiza tion and passed throughout the esophagus and stomach, inflated with air. Indentation noted in the le ft subcostal, which was prepared with ChloraPrep and stab incision was made after local anesthetic in filtrated into skin and subcutaneous tissue. A trocar catheter introduced percutaneously into the ga stric lumen and visualized endoscopically, grasping the wire, placing and bringing the endoscope and wire out through the mouth. The wire connected to the feeding tube, which was lubricated and brought back down the mouth, esophagus and into the stomach, secured against the abdominal wall with antibio tic ointment and 2 x 2 and fixation device. Catheter tailored to length and the feeding device secur ed. The patient tolerated the procedure well.
[2017-05-22 04:29] LABS: Band 4 % (5-11); Eosinophils 1 % (0-10); Hemoglobin 13.4 g/dL (14.0-18.0); Lymphocytes 9 % (21-51); MDiff Complete? YES; Mean Corpuscular HGB CONC 32.6 g/dL (32.0-36.0); Mean Corpuscular Hemoglobin 29.4 pg (27.0-31.0); Mean Platelet Volume 7.7 fL (7.4-10.4); Monocytes 1 % (0-10); Neutrophil 85 % (42-75); PLT Morphology Comment Appears Increased; Platelet Count 537 thou/uL (130-400); RBC Distribution Width 14.1 % (11.5-14.5); Red Blood Cell (RBC) Count 4.55 mill/uL (4.70-6.10); White Blood Cell (WBC) Count 14.2 thou/uL (4.8-10.8)
[2017-05-22 04:35] LABS: Anion Gap 12 mmol/L (10-20); BUN (Urea Nitrogen) 13 mg/dL (8.4-25.7); Calc. Creatinine Clearance 82 mL/min (70-130); Calcium 9.2 mg/dL (7.8-10.44); Carbon Dioxide 28 mmol/L (23-31); Chloride 100 mmol/L (98-107); Estimated GFR-MDRD Greater than 90; Glucose 89 mg/dL (83-110); Magnesium 1.6 mg/dL (1.6-2.6); Potassium 3.8 mmol/L (3.5-5.1); Sodium 136 mmol/L (136-145)
[2017-05-22] MEDS: Insulin Detemir 100 UNITS/ML 10 UNITS in Pre-Filled Syringe 1 EACH SC SCH ×2 (08:13→22:06)
--- NOTE | 2017-05-22 08:16 | PDOC.PN ---
- Subjective Encounter Start Date: 05/22/17 Encounter Start Time: 08:22 Subjective: No new events. Clinical course unchanged -: Feeding tube placed yesterday. - Objective Resuscitation Status: Resuscitation Status DNR:Do Not Resuscitate MAR Reviewed: Yes Vital Signs & Weight: Vital Signs (12 hours) Temp Pulse Resp BP Pulse Ox 05/22/17 07:24 99.2 F 80 16 178/86 H 90 L 05/22/17 03:49 99.4 F 82 18 169/90 H 94 L 05/22/17 00:00 99.7 F H 81 17 152/72 H 97 05/21/17 23:50 79 Weight Admit Weight 167 lb Weight 168 lb 4.8 oz Most Recent Monitor Data Heart Rate from ECG 83 NIBP 151/80 NIBP BP-Mean 90 Respiration from ECG 22 SpO2 96 I&O: 05/21/17 05/22/17 05/23/17 06:59 06:59 06:59 Intake Total 2904 1690 Output Total 4500 2920 Balance -1596 -1230 Result Diagrams: 05/22/17 03:20 05/22/17 03:20 Additional Labs: Accuchecks 05/22/17 05/21/17 05/21/17 04:14 20:28 15:47 POC Glucose 94 76 46 L* 05/21/17 09:53 POC Glucose 62 L Phys Exam - Physical Examination Constitutional: NAD HEENT: PERRLA, moist MMs, sclera anicteric Neck: no JVD, supple Respiratory: no wheezing, no rales, no rhonchi, clear to auscultation bilateral Cardiovascular: RRR, no significant murmur, no rub Gastrointestinal: soft, non-tender, no distention, positive bowel sounds Feeding tube in place. Musculoskeletal: pulses present, edema present (R hand) R hemiparesis. Unable to cooperate w exam Skin: no rash, normal turgor Dx/Plan (1) HTN (hypertension) Code(s): I10 - ESSENTIAL (PRIMARY) HYPERTENSION Status: Chronic Qualifiers: Hypertension type: essential hypertension Comment: Still not at goal. Continue atenolol, amlodipine Start Lisinopril 40mg and continue HCTZ 25 mg daily. (2) Hemorrhagic cerebrovascular accident (CVA) Code(s): I61.9 - NONTRAUMATIC INTRACEREBRAL HEMORRHAGE, UNSPECIFIED Status: Acute Comment: Stable. Feeding tube in place. On Statins. To start TF once given go-ahead by Surgery. (3) CAD (coronary artery disease) Code(s): I25.10 - ATHSCL HEART DISEASE OF [place] CORONARY ARTERY W/O ANG PCTRS Status: Chronic Qualifiers: Coronary Disease-Associated Artery/Lesion type: unspecified vessel or lesion type [place] vs. transplanted heart: [place] heart Associated angina: without angina Qualified Code(s): I25.10 - Atherosclerotic heart disease of [place] coronary artery without angina pectoris Comment: Stable. (4) DM type 2 (diabetes mellitus, type 2) Status: Chronic Qualifiers: Diabetes mellitus complication status: with hyperglycemia Diabetes mellitus terminal worker insulin use: with terminal worker use Qualified Code(s): E11.65 - Type 2 diabetes mellitus with hyperglycemia; Z79.4 - intermodal owner operator truck driver (current) use of insulin; Z79.4 - intermodal owner operator truck driver (current) use of insulin; Z79.4 - retirement ( current) use of insulin; Z79.4 - intermodal owner operator truck driver (current) use of insulin Comment: Continue insulin regimen with SSI, detemir. Finger stick glucose Q6H (5) Dementia Code(s): F03.90 - UNSPECIFIED DEMENTIA WITHOUT BEHAVIORAL DISTURBANCE Status: Chronic Qualifiers: Dementia type: unspecified type Dementia behavioral disturbance: without behavioral disturbance Qualified Code(s): F03.90 - Unspecified dementia without behavioral disturbance (6) Hypokalemia Code(s): E87.6 - HYPOKALEMIA Status: Resolved Comment: Replete as necessary - Plan cont current plan of care, colon catheter, PT/OT, social insurance specialist, DVT proph w/ SCDs CM to assist w placement. Medically stable for discharge to SNF v rehab * .
[2017-05-22] MEDS: Hydrochlorothiazide 25 MG TAB PO SCH (09:39)
[2017-05-22] MEDS: Atorvastatin Calcium 40 MG TAB PO SCH (09:39)
[2017-05-22] MEDS: Lisinopril 20 MG TAB PO SCH (09:39)
[2017-05-22] MEDS: Tamsulosin HCl 0.4 MG CAP PO SCH (09:40)
[2017-05-22] MEDS: Senokot S 8.6-50 MG TAB PO SCH (09:40)
[2017-05-22] MEDS: Atenolol 50 MG TAB PO SCH ×2 (09:40→22:07)
[2017-05-22] MEDS: Amlodipine 10 MG TAB PO SCH (09:41)
--- NOTE | 2017-05-22 10:27 | PRG ---
DATE OF SERVICE: 05/22/2017 OBJECTIVE: VITAL SIGNS: Stable, afebrile. GENERAL: He is tolerating his tube feeds. ABDOMEN: Soft, nontender. We will sign off at this time. Please call if needed.
[2017-05-22] MEDS ORDERED: Labetalol HCl 100 MG/20 ML VIAL SLOW IVP PRN (11:31)
--- NOTE | 2017-05-22 11:59 | PRG ---
DATE OF SERVICE: 05/22/2017 SUBJECTIVE: Juan Musa Junior remains stable. OBJECTIVE: VITAL SIGNS: There are mild elevations in blood pressure between 170 and 190 today, heart rate is 80 . He is afebrile, respiratory rate 20, oximetry is 95% on room air. GENERAL: He intermittently follows commands and he waved at the nurses yesterday when he was going i nto the intermediate care unit. LUNGS: Clear. HEART: Regular rhythm. ABDOMEN: Soft. LABORATORY DATA: White count 14.2, hemoglobin 13.4, platelets 537,000. Electrolytes are normal. Creatinine is normal. IMPRESSION: 1. Hemorrhagic cerebrovascular accident, felt to be secondary to hypertension. 2. Status post PEG placement. 3. Thrombocytosis. 4. Improving neurological status. PLAN: 1. Continue supportive care. 2. Hypertension. Adjust antihypertensives for a goal of 140 to 160, I would think systolic.
[2017-05-22] MEDS: hydrALAZINE 20 MG/ML VIAL SLOW IVP PRN (12:21)
[2017-05-22] MEDS: HumaLOG 300 UNITS/3 ML VIAL SC PRN (16:49)
[2017-05-22] MEDS: Sodium Chloride 0.9% 1,000 ML IV SCH ×2 (19:03→22:25)
[2017-05-23 04:58] LABS: #Lymphocytes 1.2 thou/uL (1.20-3.40); #Monocytes 1.1 thou/uL (0.11-0.59); %Basophils 0.1 % (0.0-1.0); %Eosinophils 0.2 % (0.0-10.0); %Lymphocytes 7.6 % (21.0-51.0); %Monocytes 7.4 % (0.0-10.0); %Neutrophils 84.7 % (42.0-75.0); Hemoglobin 12.3 g/dL (14.0-18.0); Mean Corpuscular HGB CONC 33.5 g/dL (32.0-36.0); Mean Corpuscular Hemoglobin 29.8 pg (27.0-31.0); Mean Corpuscular Volume 89.1 fl (80.0-94.0); Mean Platelet Volume 7.2 fL (7.4-10.4); Platelet Count 544 thou/uL (130-400); RBC Distribution Width 13.7 % (11.5-14.5); Red Blood Cell (RBC) Count 4.14 mill/uL (4.70-6.10); White Blood Cell (WBC) Count 15.4 thou/uL (4.8-10.8)
[2017-05-23 05:04] LABS: Anion Gap 11 mmol/L (10-20); BUN (Urea Nitrogen) 22 mg/dL (8.4-25.7); Calc. Creatinine Clearance 62 mL/min (70-130); Calcium 9.1 mg/dL (7.8-10.44); Carbon Dioxide 25 mmol/L (23-31); Chloride 101 mmol/L (98-107); Estimated GFR-MDRD 83; Glucose 308 mg/dL (83-110); Magnesium 1.9 mg/dL (1.6-2.6); Potassium 4.1 mmol/L (3.5-5.1); Sodium 133 mmol/L (136-145)
[2017-05-23 05:24] LABS: Hemoglobin 12.4 g/dL (14.0-18.0); Mean Corpuscular HGB CONC 33.1 g/dL (32.0-36.0); Mean Corpuscular Hemoglobin 29.6 pg (27.0-31.0); Mean Corpuscular Volume 89.4 fl (80.0-94.0); RBC Distribution Width 13.9 % (11.5-14.5); White Blood Cell (WBC) Count 16.5 thou/uL (4.8-10.8)
[2017-05-23 05:25] LABS: Band 4 % (5-11); Lymphocytes 5 % (21-51); MDiff Complete? YES; Mean Platelet Volume 7.3 fL (7.4-10.4); Monocytes 7 % (0-10); Neutrophil 84 % (42-75); PLT Morphology Comment Appears Increased; Platelet Count 558 thou/uL (130-400); RBC Morphology Normal
[2017-05-23] MEDS: HumaLOG 300 UNITS/3 ML VIAL SC PRN ×4 (05:40→21:24)
[2017-05-23] MEDS: Sodium Chloride 0.9% 1,000 ML IV SCH ×4 (05:40→23:11)
--- NOTE | 2017-05-23 09:22 | PDOC.PN ---
- Subjective Encounter Start Date: 05/23/17 Encounter Start Time: 09:20 Subjective: no responce to verbal stimuli - Objective Resuscitation Status: Resuscitation Status DNR:Do Not Resuscitate MAR Reviewed: Yes Vital Signs & Weight: Vital Signs (12 hours) Temp Pulse Resp BP BP Pulse Ox 05/23/17 07:15 98.3 F 92 20 155/76 H 92 L 05/23/17 04:31 100.2 F H 87 16 159/69 H 93 L 05/22/17 23:05 100.4 F H 91 18 153/71 H 96 05/22/17 22:07 103 H 167/70 H Weight Admit Weight 167 lb Weight 177 lb 1.6 oz Most Recent Monitor Data Heart Rate from ECG 83 NIBP 151/80 NIBP BP-Mean 90 Respiration from ECG 22 SpO2 96 I&O: 05/22/17 05/23/17 05/24/17 06:59 06:59 06:59 Intake Total 1690 1830 Output Total 2920 1960 Balance -1230 -130 Result Diagrams: 05/23/17 04:40 05/23/17 04:40 Additional Labs: Accuchecks 05/23/17 05/22/17 05/22/17 05:18 22:07 16:36 POC Glucose 309 H 238 H 215 H 05/22/17 05/22/17 12:00 10:30 POC Glucose 136 H 112 H Phys Exam - Physical Examination Neck: no JVD Respiratory: clear to auscultation bilateral Cardiovascular: RRR, no significant murmur Gastrointestinal: soft, non-tender, positive bowel sounds PEG Musculoskeletal: no edema Dx/Plan (1) Hemiplegia affecting dominant side Code(s): G81.90 - HEMIPLEGIA, UNSPECIFIED AFFECTING UNSPECIFIED SIDE Status: Acute (2) Hemorrhagic cerebrovascular accident (CVA) Code(s): I61.9 - NONTRAUMATIC INTRACEREBRAL HEMORRHAGE, UNSPECIFIED Status: Acute Comment: Stable. Feeding tube in place. On Statins. To start TF once given go-ahead by Surgery. (3) Hypothyroidism Code(s): E03.9 - HYPOTHYROIDISM, UNSPECIFIED Status: Acute Qualifiers: Hypothyroidism type: unspecified Qualified Code(s): E03.9 - Hypothyroidism , unspecified (4) CAD (coronary artery disease) Code(s): I25.10 - ATHSCL HEART DISEASE OF [place] CORONARY ARTERY W/O ANG PCTRS Status: Chronic Qualifiers: Coronary Disease-Associated Artery/Lesion type: unspecified vessel or lesion type [place] vs. transplanted heart: [place] heart Associated angina: without angina Qualified Code(s): I25.10 - Atherosclerotic heart disease of [place] coronary artery without angina pectoris Comment: Stable. (5) DM type 2 (diabetes mellitus, type 2) Status: Chronic Qualifiers: Diabetes mellitus complication status: with hyperglycemia Diabetes mellitus senior care insulin use: with rat exterminator use Qualified Code(s): E11.65 - Type 2 diabetes mellitus with hyperglycemia; Z79.4 - termite technician (current) use of insulin; Z79.4 - residential (current) use of insulin; Z79.4 - residential ( current) use of insulin; Z79.4 - termite technician (current) use of insulin Comment: Continue insulin regimen with SSI, detemir. Finger stick glucose Q6H (6) HTN (hypertension) Code(s): I10 - ESSENTIAL (PRIMARY) HYPERTENSION Status: Chronic Qualifiers: Hypertension type: essential hypertension Comment: Still not at goal. Continue atenolol, amlodipine Start Lisinopril 40mg and continue HCTZ 25 mg daily. - Plan cont PEG feedings, meds -: cont accu/ss/ levemir -: BP at target 140-160 sys. cont amlodipine , atenolol, lisinopril -: DC planning * .
[2017-05-23] MEDS: Insulin Detemir 100 UNITS/ML 10 UNITS in Pre-Filled Syringe 1 EACH SC SCH ×2 (10:10→21:24)
[2017-05-23] MEDS: Lisinopril 20 MG TAB PO SCH (10:11)
[2017-05-23] MEDS: Amlodipine 10 MG TAB PO SCH (10:11)
[2017-05-23] MEDS: Hydrochlorothiazide 25 MG TAB PO SCH (10:11)
[2017-05-23] MEDS: Atenolol 50 MG TAB PO SCH ×2 (10:12→21:23)
[2017-05-23] MEDS: Tamsulosin HCl 0.4 MG CAP PO SCH (10:12)
[2017-05-23] MEDS: Senokot S 8.6-50 MG TAB PO SCH (10:12)
[2017-05-23] MEDS: Atorvastatin Calcium 40 MG TAB PO SCH (10:12)
--- NOTE | 2017-05-23 13:40 | PRG ---
DATE OF SERVICE: 05/23/2017 SUBJECTIVE: He is somnolent in bed, does not appear to be in any distress. PHYSICAL EXAMINATION: VITAL SIGNS: Temperature is 98.7, pulse 83, respirations 20, O2 sat 92% on room air. HEENT: No notable findings. NECK: No JVD. LUNGS: Clear. CARDIAC: S1 and S2 regular. ABDOMEN: PEG tube noted. EXTREMITIES: No edema. LABORATORY DATA: White blood cell count 16.5, hematocrit 37.5, platelet count 558. Sodium 133, pota ssium 4.1, chloride 101, CO2 25, BUN 22, creatinine 1.1, glucose 308. ASSESSMENT: 1. Status post hemorrhagic cerebrovascular accident secondary to hypertension. 2. Status post PEG placement. 3. Thrombocytosis. PLAN: He is continuing supportive care. He has a DNR order on the chart. His prognosis for recover y seems quite poor at this point. I reviewed his orders and I do not see any changes that need to be made from our standpoint.
--- NOTE | 2017-05-23 17:05 | EKG ---
Test Reason : Blood Pressure : / mmHG Vent. Rate : 075 BPM Atrial Rate : 075 BPM P-R Int : 156 ms QRS Dur : 080 ms QT Int : 368 ms P-R-T Axes : 077 041 070 degrees QTc Int : 410 ms Sinus rhythm with Premature atrial complexes Right atrial enlargement Borderline ECG Confirmed by RAJI SUAREZ D.O. ([id number]), anatomy professor JIMMIE RICHARDS ([id number] on 05/23/2017 5:04:16 PM Referred By: Confirmed By:RAJI SUAREZ D.O.
[2017-05-24 05:06] LABS: #Eosinphils 0.1 thou/uL (0.0-0.7); #Lymphocytes 1.5 thou/uL (1.20-3.40); #Monocytes 1.3 thou/uL (0.11-0.59); #Neutrophils 12.8 thou/uL (1.40-6.50); %Eosinophils 0.9 % (0.0-10.0); %Lymphocytes 9.6 % (21.0-51.0); %Monocytes 7.9 % (0.0-10.0); %Neutrophils 81.6 % (42.0-75.0); Hemoglobin 11.8 g/dL (14.0-18.0); Mean Corpuscular HGB CONC 32.7 g/dL (32.0-36.0); Mean Corpuscular Hemoglobin 29.2 pg (27.0-31.0); Mean Corpuscular Volume 89.4 fl (80.0-94.0); Mean Platelet Volume 7.3 fL (7.4-10.4); Platelet Count 527 thou/uL (130-400); RBC Distribution Width 13.7 % (11.5-14.5); Red Blood Cell (RBC) Count 4.03 mill/uL (4.70-6.10); White Blood Cell (WBC) Count 15.7 thou/uL (4.8-10.8)
[2017-05-24 05:19] LABS: Anion Gap 7 mmol/L (10-20); BUN (Urea Nitrogen) 21 mg/dL (8.4-25.7); Calc. Creatinine Clearance 78 mL/min (70-130); Calcium 9.2 mg/dL (7.8-10.44); Carbon Dioxide 32 mmol/L (23-31); Chloride 99 mmol/L (98-107); Estimated GFR-MDRD Greater than 90; Glucose 242 mg/dL (83-110); Magnesium 1.6 mg/dL (1.6-2.6); Potassium 3.7 mmol/L (3.5-5.1); Sodium 134 mmol/L (136-145)
[2017-05-24] MEDS: HumaLOG 300 UNITS/3 ML VIAL SC PRN ×3 (06:08→17:01)
[2017-05-24] MEDS: Hydrochlorothiazide 25 MG TAB PO SCH (08:32)
[2017-05-24] MEDS: Senokot S 8.6-50 MG TAB PO SCH (08:33)
[2017-05-24] MEDS: Atorvastatin Calcium 40 MG TAB PO SCH (08:33)
[2017-05-24] MEDS: Amlodipine 10 MG TAB PO SCH (08:33)
[2017-05-24] MEDS: Tamsulosin HCl 0.4 MG CAP PO SCH (08:33)
[2017-05-24] MEDS: Atenolol 50 MG TAB PO SCH ×2 (08:33→21:26)
[2017-05-24] MEDS: Lisinopril 20 MG TAB PO SCH (09:50)
[2017-05-24] MEDS: Insulin Detemir 100 UNITS/ML 10 UNITS in Pre-Filled Syringe 1 EACH SC SCH (09:50)
[2017-05-24] MEDS ORDERED: Insulin Detemir 100 UNITS/ML 20 UNITS in Pre-Filled Syringe 1 EACH SC SCH (11:31)
[2017-05-24 12:29] LABS: Bilirubin Negative (Negative); Blood, Urine Small (Negative); Clarity CLEAR (Clear); Glucose, Urine (Dipstick) Negative (Negative); Leukocyte Moderate (Negative); Nitrite Negative (Negative); Protein, Urine (Dipstick) 30 mg/dL (Neg-Trace); Specific Gravity, Urine 1.013 (1.002-1.036); pH, Urine 6.5 (5.0-9.0)
[2017-05-24 12:32] LABS: Bacteria/HPF Rare-Few HPF (None Seen); Hyaline Casts/LPF 0-3 HYALINE CAST LPF (0-3 Hyaline); Squamous Epithelial None Seen HPF (0-3)
[2017-05-24 12:34] LABS: Yeast-AUWi Flag 42.1 (0-25.0)
[2017-05-24 12:44] LABS: Yeast-All Forms None Seen HPF (None Seen)
[2017-05-24] MEDS: Sodium Chloride 0.9% 1,000 ML IV SCH (13:01)
[2017-05-24] MEDS: Acetaminophen 325 MG Suppository PR PRN ×2 (13:15→21:27)
--- NOTE | 2017-05-24 14:03 | PRG ---
DATE OF SERVICE: 05/24/2017 SUBJECTIVE: The patient is seen and examined at bedside. Does not have any contact with patient. Ana rivero does not follow my commands. He is arousable with painful stimuli. He tolerated his tube feedings at 60 mL per hour without residuals. The nursing staff noticed some swelling of his right upper ext remity and temperature which is low grade. OBJECTIVE: VITAL SIGNS: Blood pressure is 157/72, pulse is 82, respiratory rate is 20, temperature is 99.9, O2 saturation is 95% on room air. GENERAL: He does not follow commands. He does not let me open his eyes, he fights. LUNGS: Clear. HEART: S1, S2 normal, no S3, S4. ABDOMEN: Soft. Bowel sounds are present. EXTREMITIES: No clubbing, cyanosis or edema. NEUROLOGIC: He is in deep coma. Arousable with painful stimuli. He does not follow commands. LABORATORY DATA: Showed white count of 15.7, hemoglobin of 11.8, hematocrit 36.1, and platelet count is 527. Sodium of 134, potassium 3.0, chloride 99, CO2 32, BUN 21, creatinine 0.8, glycemia is rang ing from 202 to 268. IMPRESSION AND PLAN: 1. Hemorrhagic CVA affecting dominant side. 2. Hypothyroidism. 3. Low-grade fever of unclear etiology with Mireles catheter was discontinued yesterday. We will stra ight cath him today for UA and based on that findings, we will make decision about whether he will romero ve blood and urine cultures done. We will obtain chest x-ray. 4. Coronary artery disease, stable. 5. Diabetes mellitus with hyperglycemia. He is on 10 units of Levemir twice a day. Will go up on t he dose to 15 twice a day. 6. Hypertension, relatively well controlled on amlodipine and lisinopril. We are waiting for intermediate unit that patient should be able to go there if he is stable frances kenney
--- NOTE | 2017-05-24 14:04 | PRG ---
DATE OF SERVICE: 05/24/2017 SUBJECTIVE: Patient will wake up this morning, but will not follow any commands. OBJECTIVE: VITAL SIGNS: On exam, temperature is 99.9, pulse 90, respirations 20, O2 saturation 95%, blood press ure 157/72. HEENT: Unremarkable. NECK: No JVD. LUNGS: Fairly clear. CARDIAC: S1 and S2, regular. ABDOMEN: Soft. EXTREMITIES: Trace edema. LABORATORY DATA: White blood cell count 15.7, hematocrit 36.1, platelet count 527. Sodium 134, pota ssium 3.7, chloride 99, CO2 of 32, BUN 21, creatinine 0.8, glucose 242. ASSESSMENT: 1. Status post stroke with severe debilitation. 2. Status post PEG placement. 3. Thrombocytosis. PLAN: Continue supportive care. He is DNR. No recommendations at this time.
[2017-05-24] MEDS: Insulin Detemir 100 UNITS/ML 15 UNITS in Pre-Filled Syringe 1 EACH SC SCH (21:27)
[2017-05-25] MEDS: hydrALAZINE 20 MG/ML VIAL SLOW IVP PRN (04:50)
[2017-05-25] MEDS: Sodium Chloride 0.9% 1,000 ML IV SCH ×3 (04:54→17:55)
[2017-05-25 05:31] LABS: #Eosinphils 0.2 thou/uL (0.0-0.7); #Lymphocytes 1.6 thou/uL (1.20-3.40); #Monocytes 1.3 thou/uL (0.11-0.59); #Neutrophils 13.3 thou/uL (1.40-6.50); %Eosinophils 1.1 % (0.0-10.0); %Lymphocytes 9.5 % (21.0-51.0); %Neutrophils 81.3 % (42.0-75.0); Hemoglobin 12.5 g/dL (14.0-18.0); Mean Corpuscular HGB CONC 33.6 g/dL (32.0-36.0); Mean Corpuscular Hemoglobin 30.2 pg (27.0-31.0); Mean Platelet Volume 7.5 fL (7.4-10.4); Platelet Count 544 thou/uL (130-400); RBC Distribution Width 13.7 % (11.5-14.5); Red Blood Cell (RBC) Count 4.13 mill/uL (4.70-6.10); White Blood Cell (WBC) Count 16.3 thou/uL (4.8-10.8)
[2017-05-25 05:41] LABS: Anion Gap 10 mmol/L (10-20); BUN (Urea Nitrogen) 18 mg/dL (8.4-25.7); Calc. Creatinine Clearance 77 mL/min (70-130); Calcium 9.5 mg/dL (7.8-10.44); Carbon Dioxide 30 mmol/L (23-31); Chloride 98 mmol/L (98-107); Estimated GFR-MDRD Greater than 90; Glucose 289 mg/dL (83-110); Magnesium 1.7 mg/dL (1.6-2.6); Potassium 3.9 mmol/L (3.5-5.1); Sodium 134 mmol/L (136-145)
[2017-05-25] MEDS: HumaLOG 300 UNITS/3 ML VIAL SC PRN (06:36)
[2017-05-25] MEDS: Amlodipine 10 MG TAB PO SCH (09:00)
[2017-05-25] MEDS: Senokot S 8.6-50 MG TAB PO SCH (09:00)
[2017-05-25] MEDS: Atenolol 50 MG TAB PO SCH ×2 (09:00→21:00)
[2017-05-25] MEDS: Lisinopril 20 MG TAB PO SCH (09:00)
[2017-05-25] MEDS: Hydrochlorothiazide 25 MG TAB PO SCH (09:00)
[2017-05-25] MEDS: Atorvastatin Calcium 40 MG TAB PO SCH (09:01)
[2017-05-25] MEDS: Tamsulosin HCl 0.4 MG CAP PO SCH (09:01)
[2017-05-25] MEDS ORDERED: hydrALAZINE 20 MG/ML VIAL SLOW IVP PRN (09:35)
[2017-05-25] MEDS ORDERED: Labetalol HCl 100 MG/20 ML VIAL SLOW IVP PRN (09:35)
[2017-05-25] MEDS: Insulin Detemir 100 UNITS/ML 15 UNITS in Pre-Filled Syringe 1 EACH SC SCH ×2 (10:00→21:01)
[2017-05-25 13:27] VITALS: BMI 25.1
--- NOTE | 2017-05-25 15:54 | PRG ---
DATE OF SERVICE: 05/25/2017 OBJECTIVE: VITAL SIGNS: Mr. Musa is afebrile, heart rate 76, respiratory rate is 18, oximetry 94% on room air, blood pressure 175/81 and 155/69 at noon. LUNGS: Clear. HEART: Regular rhythm. ABDOMEN: Soft. LABORATORY DATA: White count over the weekend was 16.5, hemoglobin 12.4, platelets 558. Sodium 134, potassium 3.9, chloride 98, bicarbonate 30, BUN 18, creatinine 0.87. IMPRESSION: 1. Status post stroke. 2. Status post PEG. 3. Thrombocytosis. Placement is next the step. He appears to be protecting his airway well at this time.
[2017-05-25] MEDS: Acetaminophen 325 MG Suppository PR PRN (17:42)
--- NOTE | 2017-05-25 17:47 | PDOC.PN ---
- Subjective Encounter Start Date: 05/25/17 Encounter Start Time: 09:00 Patient seen and examined. No new change in mentation per RN. RN reported an abscess on left lower face. No overnight events - Objective Resuscitation Status: Resuscitation Status DNR:Do Not Resuscitate MAR Reviewed: Yes Vital Signs & Weight: Vital Signs (12 hours) Temp Pulse Pulse Pulse Resp BP BP 05/25/17 16:00 97.5 F L 77 18 05/25/17 12:00 99.3 F 76 18 05/25/17 10:20 75 75 175/81 H 165/73 H 05/25/17 08:43 99.3 F 76 18 05/25/17 07:42 99.4 F 79 20 05/25/17 06:39 BP Pulse Ox 05/25/17 16:00 169/76 H 95 05/25/17 12:00 155/69 H 94 L 05/25/17 10:20 05/25/17 08:43 94 L 05/25/17 07:42 176/71 H 94 L 05/25/17 06:39 151/78 H Weight Admit Weight 167 lb Weight 175 lb Most Recent Monitor Data Heart Rate from ECG 83 NIBP 151/80 NIBP BP-Mean 90 Respiration from ECG 22 SpO2 96 I&O: 05/24/17 05/25/17 05/26/17 06:59 06:59 06:59 Intake Total 3367 2040 Output Total 50 Balance 3367 1989 Result Diagrams: 05/25/17 05:05 05/25/17 05:05 Additional Labs: Accuchecks 05/25/17 05/25/17 05/25/17 17:32 11:11 05:40 POC Glucose 271 H 212 H 247 H 05/24/17 05/24/17 20:43 10:36 POC Glucose 236 H 198 H EKG Reviewed by me: Yes (Tele SR) Phys Exam - Physical Examination Constitutional: NAD Respiratory: no wheezing, no rhonchi Cardiovascular: RRR, no rub Gastrointestinal: soft, non-tender, positive bowel sounds Musculoskeletal: no edema Neuro/Psych - No new focal deficits or mentation change Dx/Plan - Plan DVT proph w/SCDs IMPRESSION: 1. Hemorrhagic CVA 2. UTI 3. Swallow dysfunction s/p PEG 4. DM2/HTN 5. Other issues per previous notes PLAN: * No antiplatelet or anticoag due to hemorrhagic CVA * Cont sliding scale * Add PRN BP meds to keep BP <160 * Cont to monitor * Cont Atbx for UTI * Await cultures Microbiology 05/24/17 Unknown Urine Straight Catheter Urine Culture - Preliminary Gram Negative Luis Review of Systems - Review of Systems Other: Cannot obtain due to current cognition - Medications/Allergies Allergies/Adverse Reactions: Allergies Allergy/AdvReac Type Severity Reaction Status Date / Time No Known Drug Allergies Allergy Verified 01/28/15 05:05 Medications: Current Medications Acetaminophen (Tylenol) 325 mg NE Q4H PRN PRN Reason: Headache/Fever or Pain Last Admin: 05/25/17 17:42 Dose: 325 mg Amlodipine Besylate (Norvasc) 10 mg PO DAILY ON LICENSE OF [facility] Last Admin: 05/25/17 09:00 Dose: 10 mg Lipase/Protease/Amylase ([place] [id number]) 1 cap FS .PER PROTOCOL PRN PRN Reason: TUBE OCCLUSION PROTOCOL Atenolol (Tenormin) 50 mg PO BID ON LICENSE OF [facility] Last Admin: 05/25/17 09:00 Dose: 50 mg Atorvastatin Calcium (Lipitor) 40 mg PO DAILY ON LICENSE OF [facility] Last Admin: 05/25/17 09:01 Dose: 40 mg Dextrose/Water (Dextrose 50%) 25 gm SLOW IVP PRN PRN PRN Reason: Hypoglycemia Last Admin: 05/21/17 15:47 Dose: 25 gm Glucagon (Glucagon) 1 mg IM PRN PRN PRN Reason: Hypoglycemia Hydralazine HCl (Apresoline) 10 mg SLOW IVP Q4H PRN PRN Reason: SBP GREATER THAN 160 Hydrochlorothiazide (Hydrochlorothiazide) 25 mg PO DAILY ON LICENSE OF [facility] Last Admin: 05/25/17 09:00 Dose: 25 mg Sodium Chloride (Normal Saline 0.9%) 1,000 mls @ 80 mls/hr IV .[id number] ON LICENSE OF [facility] Last Admin: 05/25/17 16:44 Dose: 1,000 mls Nicardipine HCl 50 mg/Miscellaneous Medication 1 each/ Sodium Chloride 500 mls @ 0 mls/hr IVPB INF PRN; Protocol; Titrate PRN Reason: KEEP 170>SBP>160 Last Admin: 05/19/17 09:13 Dose: 500 mls Dextrose/Water (D5w) 1,000 mls @ 0 mls/hr IV .Q0M PRN; As Directed PRN Reason: Hypoglycemia Insulin Detemir 15 units/ (Miscellaneous Medication) 0.15 mls @ 0 mls/hr SC BID ON LICENSE OF [facility] Last Admin: 05/25/17 10:00 Dose: 0.15 mls Levofloxacin 250 mg/ Device 50 mls @ 100 mls/hr IVPB Q24HR ON LICENSE OF [facility] Last Admin: 05/25/17 16:00 Dose: 50 mls Insulin Human Lispro (Humalog) 0 units SC .MODERATE SLIDING SC PRN PRN Reason: Moderate Correctional Scale Last Admin: 05/25/17 06:36 Dose: 4 unit Labetalol HCl (Normodyne) 10 mg SLOW IVP Q4H PRN PRN Reason: Systolic BP > 160 Lisinopril (Zestril) 40 mg PO DAILY ON LICENSE OF [facility] Last Admin: 05/25/17 09:00 Dose: 40 mg Ondansetron HCl (Zofran) 4 mg IVP BIDPRN PRN PRN Reason: Nausea/Vomiting Potassium Chloride (Klor-Con) 20 meq PO QAM-WM ON LICENSE OF [facility] Last Admin: 05/25/17 09:01 Dose: 20 meq Senna/Docusate Sodium (Senokot S) 1 tab PO DAILY ON LICENSE OF [facility] Last Admin: 05/25/17 09:00 Dose: 1 tab Sodium Bicarbonate (Bicarbonate, Sodium) 650 mg PER TUBE .PER PROTOCOL PRN PRN Reason: ENTERAL TUBE OCCLUSION Sodium Chloride (Flush - Normal Saline) 10 ml IVF PRN PRN PRN Reason: Saline Flush Last Admin: 05/25/17 04:54 Dose: 10 ml Tamsulosin HCl (Flomax) 0.4 mg PO DAILY ON LICENSE OF [facility] Last Admin: 05/25/17 09:01 Dose: 0.4 mg
[2017-05-25] MEDS: Sulfameth/Trimethoprim SS 400-80MG TAB PER TUBE SCH (21:01)
--- NOTE | 2017-05-25 22:43 | PRG ---
DATE OF SERVICE: 05/25/2017 Juan Musa has a left facial folliculitis and perhaps a small abscess. I have been asked to see mervin solomon regarding this. He is on Levaquin orally. I have added Bactrim-DS per feeding tube. There is gwen e firmness here and questionable fluctuance. Plan is to have equipment available at the bedside to d rain this tomorrow if necessary, perhaps antibiotics will help and drainage may not be necessary. We will follow clinically with you and drain tomorrow if appropriate.
[2017-05-26] MEDS: HumaLOG 300 UNITS/3 ML VIAL SC PRN ×2 (05:38→17:45)
[2017-05-26 06:03] LABS: #Eosinphils 0.3 thou/uL (0.0-0.7); #Lymphocytes 1.8 thou/uL (1.20-3.40); #Monocytes 1.1 thou/uL (0.11-0.59); #Neutrophils 12.2 thou/uL (1.40-6.50); %Basophils 0.1 % (0.0-1.0); %Lymphocytes 11.8 % (21.0-51.0); %Monocytes 6.9 % (0.0-10.0); %Neutrophils 79.1 % (42.0-75.0); Mean Corpuscular HGB CONC 31.3 g/dL (32.0-36.0); Mean Corpuscular Hemoglobin 28.2 pg (27.0-31.0); Mean Corpuscular Volume 90.1 fl (80.0-94.0); Mean Platelet Volume 7.9 fL (7.4-10.4); Platelet Count 563 thou/uL (130-400); RBC Distribution Width 13.8 % (11.5-14.5); Red Blood Cell (RBC) Count 4.24 mill/uL (4.70-6.10); White Blood Cell (WBC) Count 15.5 thou/uL (4.8-10.8)
[2017-05-26 06:27] LABS: Albumin 2.7 g/dL (3.4-4.8); Anion Gap 11 mmol/L (10-20); BUN (Urea Nitrogen) 21 mg/dL (8.4-25.7); BUN/Creatinine Ratio 21.21; Calc. Creatinine Clearance 68 mL/min (70-130); Calcium 9.4 mg/dL (7.8-10.44); Carbon Dioxide 29 mmol/L (23-31); Chloride 98 mmol/L (98-107); Estimated GFR-MDRD 88; Glucose 285 mg/dL (83-110); Magnesium 1.6 mg/dL (1.6-2.6); Phosphorus 3.8 mg/dL (2.3-4.7); Potassium 4.1 mmol/L (3.5-5.1); Sodium 134 mmol/L (136-145)
--- NOTE | 2017-05-26 10:43 | PQF ---
CLINICAL DOCUMENTATION IMPROVEMENT CLARIFICATION FORM: ICD-10 Updated PLEASE DO AN ADDENDUM TO THE PROGRESS NOTE WITH ANY DOCUMENTATION UPDATES OR ADDITIONS AND CARRY THROUGH TO DC SUMMARY. THANK YOU. DATE: 05/26/17 ATTN: Dr. Gonzalez Please exercise your independent, professional judgment in responding to the clarification form. Clinical indicators are provided on the bottom of this form for your review Please check appropriate box(s): [ x ] Agree with CT of Head noncontrast findings. [ ] Do not agree with CT of Head noncontrast findings. [ ] Other diagnosis [ ] Unable to determine In addition, please specify: Present on Admission (POA): [ x ] Yes [ ] No [ ] Unable to determine For continuity of documentation, please document condition throughout progress notes and discharge summary. Thank You. CLINICAL INDICATORS - SIGNS / SYMPTOMS/ LABS are present in the medical record: HEAD CT NONCONTRAST 05/15 @ 1747: THERE IS A MODERATE SIZED ACUTE HEMORRHAGIC NIDUS CENTERED AT THE LEFT THALAMUS W/ SURROUNDING VASOGENIC EDEMA CT OF HEAD NONCONTRAST: 05/15 @ 2019: SURROUNDING VASOGENIC EDEMA AGAIN SEEN. H&P: I DO NOT THINK HE NEEDS ANY MANNITOL OR OTHER MEASURES FOR INTRACRANIAL PRESSURE GIVEN THE AMOUNT OF SPACE THAT HE HAS INTRACRANIALLY FROM CORTICAL ATROPHY WELL THE MINIMAL PRESENCE OF MIDLINE SHIFT AT THE SEPTUM PELLICIDUM WHICH MAY BE MEASURED AT 1 MM MOST. RISKS: H&P: HX SIGNIFICANT FOR CARDIOVASCULAR DISEASE, DM. HYPERTENSION. CURRENT MEDICATIONS: ASPIRIN, PLAVIX. TREATMENT: H&P: ADMITTED TO ICU W/ 1 HR NEURO CHECKS. CONTINUE CARDENE DRIP TO TARGET 170-160 SYSTOLIC PRESSURES. Thank you, Malika (This form is maintained as a part of the permanent medical record) 2014 [employer]. All Rights Reserved Malika Maynard RN, BSN [email or web address] Office: [phone] [facility]
[2017-05-26] MEDS: Amlodipine 10 MG TAB PO SCH (10:47)
[2017-05-26] MEDS: Atenolol 50 MG TAB PO SCH ×2 (10:47→21:36)
[2017-05-26] MEDS: Lisinopril 20 MG TAB PO SCH (10:48)
[2017-05-26] MEDS: Atorvastatin Calcium 40 MG TAB PO SCH (10:48)
[2017-05-26] MEDS: Hydrochlorothiazide 25 MG TAB PO SCH (10:48)
[2017-05-26] MEDS: Senokot S 8.6-50 MG TAB PO SCH (10:49)
[2017-05-26] MEDS: Sulfameth/Trimethoprim SS 400-80MG TAB PER TUBE SCH ×2 (10:49→21:37)
[2017-05-26] MEDS: Tamsulosin HCl 0.4 MG CAP PO SCH ×2 (10:50→11:35)
--- NOTE | 2017-05-26 11:22 | PQF ---
CLINICAL DOCUMENTATION IMPROVEMENT CLARIFICATION FORM: ICD-10 Updated PLEASE DO AN ADDENDUM TO THE PROGRESS NOTE WITH ANY DOCUMENTATION UPDATES OR ADDITIONS AND CARRY THROUGH TO DC SUMMARY. THANK YOU. DATE: 05/26/17 ATTN: Dr. Gonzalez The following CLINICAL INDICATORS - SIGNS / SYMPTOMS are present in the medical record: Please provide a response below if a more specific term indicating a diagnosis and/or acuity level for this condition can be identified. Please exercise your independent, professional judgment in responding to the clarification form. Clinical indicators are provided on the bottom of this form for your review. Thank you. Please check appropriate box(s): [ x ] UTI please specify if due to or related to (as applicable): [x ] Indwelling catheter [ ] Unable to determine etiology [ ] Other diagnosis [ ] Unable to determine In addition, please specify: Present on Admission (POA): [ ] Yes [ ] No [ ] Unable to determine For continuity of documentation, please document condition throughout progress notes and discharge summary. Thank You. CLINICAL INDICATORS - SIGNS / SYMPTOMS / LABS LAB: URINE CX - PRELIMINARY GRAM NEGATIVE AUGUSTINA PN 05/24: LOW-GRADE FEVER OF UNCLEAR ETIOLOGY WITH MILAN CATHETER WAS DISCONTINUED YESTERDAY. PN 05/25: UTI RISKS: H&P: INTRACEREBRAL HEMORRHAGE WITH VENTRICULAR EXTENSION INTO THE L OCCIPITAL HORN. CPOE 05/15: URINE CATH: MILAN ONE. TREATMENTS: PN 05/24: MILAN CATHETER WAS DISCONTINUED YESTERDAY. WILL STRAIGHT CATH HIM TODAY FOR UA CPOE 05/24: LEVOFLOXACIN 250 MG IV Q 24 HRS. Thank you, Malika (This form is maintained as a part of the permanent medical record) 2015 [employer]. All Rights Reserved Malika Maynard RN, BSN [email or web address] Office: [phone] [facility]
[2017-05-26] MEDS: Insulin Detemir 100 UNITS/ML 15 UNITS in Pre-Filled Syringe 1 EACH SC SCH (11:33)
--- NOTE | 2017-05-26 15:27 | PDOC.PN ---
- Subjective Encounter Start Date: 05/26/17 Encounter Start Time: 09:30 Patient seen and examined. Appears comfortable. Tolerating tube feeds. No overnight events - Objective Resuscitation Status: Resuscitation Status DNR:Do Not Resuscitate MAR Reviewed: Yes Vital Signs & Weight: Vital Signs (12 hours) Temp Pulse Resp BP BP Pulse Ox 05/26/17 11:50 99.2 F 76 28 H 173/79 H 94 L 05/26/17 10:48 159/64 H 05/26/17 10:47 83 05/26/17 08:00 99.5 F 83 24 H 179/77 H 93 L Weight Admit Weight 167 lb Weight 175 lb Most Recent Monitor Data Heart Rate from ECG 83 NIBP 151/80 NIBP BP-Mean 90 Respiration from ECG 22 SpO2 96 I&O: 05/25/17 05/26/17 05/27/17 06:59 06:59 06:59 Intake Total 2040 3150 Output Total 50 Balance 1989 3150 Result Diagrams: 05/26/17 05:12 05/26/17 05:12 Additional Labs: Accuchecks 05/26/17 05/25/17 11:03 17:32 POC Glucose 249 H 271 H EKG Reviewed by me: Yes (Tele SR) Phys Exam - Physical Examination Constitutional: NAD Respiratory: no wheezing, no rhonchi Cardiovascular: RRR, no rub Gastrointestinal: soft, non-tender, positive bowel sounds Musculoskeletal: no edema Neuro - No new focal findings Dx/Plan - Plan DVT proph w/SCDs IMPRESSION: 1. Moderate sized hemorrhagic CVA around left thalamus with Vasogenic edema - No antiplatelet or anticoag due to hemorrhagic CVA 2. UTI - Enterobacter - Catheter associated. 3. Swallow dysfunction s/p PEG 4. DM2/HTN/Moderate PEM 5. Other issues per previous notes PLAN: * Cont Levaquin/Bactrim * Cont sliding scale/Levemir * Add PRN BP meds to keep BP <160 * Cont to monitor * Surg/Pulmonary following * Increase Levemir to 18 units BID Review of Systems - Review of Systems Other: Cannot obtain due to current cognition - Medications/Allergies Allergies/Adverse Reactions: Allergies Allergy/AdvReac Type Severity Reaction Status Date / Time No Known Drug Allergies Allergy Verified 01/28/15 05:05 Medications: Current Medications Acetaminophen (Tylenol) 325 mg LA Q4H PRN PRN Reason: Headache/Fever or Pain Last Admin: 05/25/17 17:42 Dose: 325 mg Amlodipine Besylate (Norvasc) 10 mg PO DAILY [facility] Last Admin: 05/26/17 10:47 Dose: 10 mg Lipase/Protease/Amylase ([place] [id number]) 1 cap FS .PER PROTOCOL PRN PRN Reason: TUBE OCCLUSION PROTOCOL Atenolol (Tenormin) 50 mg PO BID [facility] Last Admin: 05/26/17 10:47 Dose: 50 mg Atorvastatin Calcium (Lipitor) 40 mg PO DAILY [facility] Last Admin: 05/26/17 10:48 Dose: 40 mg Dextrose/Water (Dextrose 50%) 25 gm SLOW IVP PRN PRN PRN Reason: Hypoglycemia Last Admin: 05/21/17 15:47 Dose: 25 gm Glucagon (Glucagon) 1 mg IM PRN PRN PRN Reason: Hypoglycemia Hydralazine HCl (Apresoline) 10 mg SLOW IVP Q4H PRN PRN Reason: SBP GREATER THAN 160 Hydrochlorothiazide (Hydrochlorothiazide) 25 mg PO DAILY [facility] Last Admin: 05/26/17 10:48 Dose: 25 mg Nicardipine HCl 50 mg/Miscellaneous Medication 1 each/ Sodium Chloride 500 mls @ 0 mls/hr IVPB INF PRN; Protocol; Titrate PRN Reason: KEEP 170>SBP>160 Last Admin: 05/19/17 09:13 Dose: 500 mls Dextrose/Water (D5w) 1,000 mls @ 0 mls/hr IV .Q0M PRN; As Directed PRN Reason: Hypoglycemia Insulin Detemir 15 units/ (Miscellaneous Medication) 0.15 mls @ 0 mls/hr SC BID [facility] Last Admin: 05/26/17 11:33 Dose: 0.15 mls Levofloxacin 250 mg/ Device 50 mls @ 100 mls/hr IVPB Q24HR [facility] Last Admin: 05/25/17 16:00 Dose: 50 mls Sodium Chloride (Normal Saline 0.9%) 1,000 mls @ 40 mls/hr IV .Q24H [facility] Last Admin: 05/25/17 17:55 Dose: 1,000 mls Insulin Human Lispro (Humalog) 0 units SC .MODERATE SLIDING SC PRN PRN Reason: Moderate Correctional Scale Last Admin: 05/26/17 05:38 Dose: 6 unit Labetalol HCl (Normodyne) 10 mg SLOW IVP Q4H PRN PRN Reason: Systolic BP > 160 Lisinopril (Zestril) 40 mg PO DAILY [facility] Last Admin: 05/26/17 10:48 Dose: 40 mg Ondansetron HCl (Zofran) 4 mg IVP BIDPRN PRN PRN Reason: Nausea/Vomiting Potassium Chloride (Klor-Con) 20 meq PO QAM-WM [facility] Last Admin: 05/26/17 10:45 Dose: 20 meq Senna/Docusate Sodium (Senokot S) 1 tab PO DAILY [facility] Last Admin: 05/26/17 10:49 Dose: 1 tab Sodium Bicarbonate (Bicarbonate, Sodium) 650 mg PER TUBE .PER PROTOCOL PRN PRN Reason: ENTERAL TUBE OCCLUSION Sodium Chloride (Flush - Normal Saline) 10 ml IVF PRN PRN PRN Reason: Saline Flush Last Admin: 05/25/17 04:54 Dose: 10 ml Tamsulosin HCl (Flomax) 0.4 mg PO DAILY [facility] Last Admin: 05/26/17 11:35 Dose: 0.4 mg Trimethoprim/Sulfamethoxazole (Bactrim Ss) 1 tab PER TUBE BID [facility] Last Admin: 05/26/17 10:49 Dose: 1 tab
[2017-05-26] MEDS: Sodium Chloride 0.9% 1,000 ML IV SCH (17:18)
[2017-05-26] MEDS ORDERED: Clopidogrel Bisulfate 75 MG TAB ONE (17:43)
--- NOTE | 2017-05-26 19:29 | PRG ---
DATE OF SERVICE: 05/26/2017 SUBJECTIVE: Juan Musa clinically unchanged. Placement is the only acute issue. He has been star nickolas on antibiotics for positive urine culture. I suspect this is just bladder colonization associated with catheter. A very short course of antibio tics with removal of the Mireles should be more than adequate. His temperature 100, 2 days ago was most likely related to atelectasis. He appears to be stable for placement.
[2017-05-26] MEDS: Insulin Detemir 100 UNITS/ML 18 UNITS in Pre-Filled Syringe 1 EACH SC SCH (21:37)
[2017-05-27] MEDS: HumaLOG 300 UNITS/3 ML VIAL SC PRN ×3 (01:52→11:54)
[2017-05-27] MEDS: Hydrochlorothiazide 25 MG TAB PO SCH (09:38)
[2017-05-27] MEDS: Senokot S 8.6-50 MG TAB PO SCH (09:38)
[2017-05-27] MEDS: Sulfameth/Trimethoprim SS 400-80MG TAB PER TUBE SCH (09:39)
[2017-05-27] MEDS: Lisinopril 20 MG TAB PO SCH (09:39)
[2017-05-27] MEDS: Tamsulosin HCl 0.4 MG CAP PO SCH (09:40)
[2017-05-27] MEDS: Amlodipine 10 MG TAB PO SCH (09:40)
[2017-05-27] MEDS: Atenolol 50 MG TAB PO SCH (09:41)
[2017-05-27] MEDS: Atorvastatin Calcium 40 MG TAB PO SCH (09:41)
[2017-05-27] MEDS: Insulin Detemir 100 UNITS/ML 18 UNITS in Pre-Filled Syringe 1 EACH SC SCH (10:06)
[2017-05-27 11:44] VITALS: BP 147/72; TEMP 99.3
--- NOTE | 2017-05-27 12:40 | PQF ---
CLINICAL DOCUMENTATION IMPROVEMENT CLARIFICATION FORM: ICD-10 Updated PLEASE DO AN ADDENDUM TO THE PROGRESS NOTE WITH ANY DOCUMENTATION UPDATES OR ADDITIONS AND CARRY THROUGH TO DC SUMMARY. THANK YOU. DATE: 05/27/17 ATTN: Dr. Gonzalez Please provide a response below if a more specific term indicating a diagnosis and/or acuity level for this condition can be identified. Please exercise your independent, professional judgment in responding to the clarification form. Clinical indicators are provided at the bottom of this form for your review. Thank you. [ ] Coma / Comatose [ ] Persistent vegetative state [ ] Stupor [ ] Drowsiness [ ] Somnolence [ ] Semicoma [ ] Associated injury (skull fracture, intracranial injury) [ ] Does not apply to this patient [ ] Unable to determine [ ] Other diagnosis: The following CLINICAL INDICATORS - SIGNS / SYMPTOMS are present in the medical record: H&P: THE PT IS SOMNOLENT AT BEDSIDE, THOUGH AROUSES WHEN SPOKEN TO. GCS AT 12 MEDICAL CONSULT 05/17: HE IS IN DEEP COMA, NON AROUSABLE, WITHDRAWALS TO PAIN STIMULI ON THE LEFT SIDE UPPER & LOWER EXTREMITY. NEURO SURGEON PN 05/18: THIS MORNING IS SLIGHTLY IMPROVED NEUROLOGICALLY. HE IS OPENING HIS EYES & GRUNTING A LITTLE MORE, ALTHOUGH STILL NOT SPEAKING PN 05/19: DEMENTIA. CHRONIC. UNCHANGED. DELIRIUM PRECAUTIONS PULMONOLOGY PN 05/24: PT WILL WAKE UP THIS MORNING, BUT WILL NOT FOLLOW ANY COMMANDS. COMA SCALE NURSING ASSES: 05/18 @ 1999: EYE OPENING: TO VOICE MOTOR: OBEYS COMMANDS VERBAL: CONFUSED COMA SCALE TOTAL: 13 COMA SCALE NURSING ASSES: 05/22 @ 1952 EYE OPENING: TO PAIN MOTOR: WITHDRAWS TO PAIN VERBAL: NONE COMA SCALE TOTAL: 7 RISKS: H&P: SIGNIFICANT FOR CARDIOVASCULAR DISEASE, DM. HYPERTENSION. INTRACEREBRAL HEMORRHAGE W/ VENTRICULAR EXTENSION INTO THE L OCCIPITAL HORN. TREATMENTS: H&P: ADMITTED TO THE ICU WITH Q1 HR NEURO CHECKS. CONTINUE CARDENE DRIP TO TARGET 170-160 SYSTOLIC PRESSURES. (This form is maintained as a part of the permanent medical record) 2014 [employer] All Rights Reserved Malika Maynard RN, BSN [email or web address] Office: [phone] [facility]
--- NOTE | 2017-05-27 22:20 | DIS ---
DATE OF DISCHARGE: 05/27/2017 DISCHARGE DISPOSITION: To [facility]. ALLERGIES: No known drug allergies. The patient was seen and examined on the day of discharge. Follow up with Dr. Amezquita in 1 week. DISCHARGE MEDICATIONS: 1. Tylenol as needed. 2. Amlodipine 10 mg daily. 3. Atenolol 50 mg b.i.d. 4. Lipitor 20 mg daily. 5. Avodart 0.5 mg daily. 6. Levemir 30 units q.a.m. 7. Lisinopril/hydrochlorothiazide 20/25 daily. 8. Senokot-S 1 tablet daily. 9. Bactrim 1 tablet b.i.d. for 1 week. 10. Flomax 0.4 mg daily. INPATIENT CONSULTANTS: 1. General Surgery, Dr. Reynoso. 2. Admitting physician, Neurosurgery, Dr. Whaley. 3. Pulmonary Critical Care, Dr. Bartlett. 4. Hospitalist team for medical management. INPATIENT PROCEDURES: On 05/21/2017, the patient underwent PEG tube placement. BRIEF HOSPITAL COURSE: The patient is a 77-year-old male with diabetes, hypertension, hypothyroidism who presented to the hospital with altered mentation. The CT scan in the emergency room was consist ent with left-sided thalamic hemorrhage measuring 2.5 x 3.5 cm with an estimated volume of approximat hernan 15 mL. Patient was admitted by Neurosurgery. Please refer to the history and physical dated for further details. The patient was admitted to the Intensive Care Unit with a diagnosis of intracranial hemorrhage. The re was also surrounding vasogenic edema. He received Cardene drip for elevated blood pressure. Late r on, the PEG tube was placed due to persistent swallow dysfunction and malnutrition. He also had a small folliculitis on the left side of the face with possible abscess that was drained by General Jarred mika. During the hospital course, he was also diagnosed with Enterobacter UTI. His temperature has improved. Per Pulmonary, his low-grade temperature is probably secondary to atelectasis. He will be discharged to [facility]. FINAL DIAGNOSES: 1. Moderate size hemorrhagic cerebrovascular accident around the left thalamus with vasogenic edema. 2. Enterobacter urinary tract infection. 3. Small abscess/left facial folliculitis, status post drainage by General Surgery. 4. Swallow dysfunction, status post percutaneous endoscopic gastrostomy tube. 5. Diabetes mellitus type 2. 6. Hypertension. 7. Moderate protein-energy malnutrition. 8. Hypertensive urgency managed with Cardene drip. 9. Coma on admission. His mentation has somewhat improved. 10. Hyponatremia. 11. Chronic anemia. 12. Thrombocytosis of unclear etiology. 13. Hypothyroidism. Total time coordinating the discharge of this patient was 38 minutes.
== END 2017-05-27 13:49 | DRG 64 ==
LOC: EDBD → ERS 17:36 → CCU 19:34 → IMCU/EMU 05-21 16:40 → 2SE 05-22 11:11
PROVIDERS: ADMIT Neurological Surgery; ATTEND Internal Medicine
PROC: 30233R1 Transfusion of Nonautologous Platelets into Peripheral Vein, Percutaneous Approach (ICD-10-PCS; 2017-05-15)
PROC: 0DH63UZ Insertion of Feeding Device into Stomach, Percutaneous Approach (ICD-10-PCS; principal; 2017-05-21)
PROC: 3E0G76Z Introduction of Nutritional Substance into Upper GI, Via Natural or Artificial Opening (ICD-10-PCS; 2017-05-21)
DX: I61.0 Nontraumatic intracerebral hemorrhage in hemisphere, subcortical (principal); G93.6 Cerebral edema; E44.0 Moderate protein-calorie malnutrition; E87.3 Alkalosis; G81.91 Hemiplegia, unspecified affecting right dominant side; I48.0 Paroxysmal atrial fibrillation; E11.65 Type 2 diabetes mellitus with hyperglycemia; E87.1 Hypo-osmolality and hyponatremia; D47.3 Essential (hemorrhagic) thrombocythemia; L02.01 Cutaneous abscess of face; N39.0 Urinary tract infection, site not specified; T83.511A Infection and inflammatory reaction due to indwelling urethral catheter, initial encounter; D64.9 Anemia, unspecified; I10 Essential (primary) hypertension; E03.9 Hypothyroidism, unspecified; Z79.01 Long term (current) use of anticoagulants; Z79.82 Long term (current) use of aspirin; Z95.0 Presence of cardiac pacemaker; L73.9 Follicular disorder, unspecified; Z66 Do not resuscitate; I25.10 Atherosclerotic heart disease of native coronary artery without angina pectoris; Z79.4 Long term (current) use of insulin; B96.89 Other specified bacterial agents as the cause of diseases classified elsewhere; Z68.25 Body mass index [BMI] 25.0-25.9, adult; I16.0 Hypertensive urgency; Z90.49 Acquired absence of other specified parts of digestive tract; I34.0 Nonrheumatic mitral (valve) insufficiency; Z95.5 Presence of coronary angioplasty implant and graft; Z86.73 Personal history of transient ischemic attack (TIA), and cerebral infarction without residual deficits; F03.90 Unspecified dementia, unspecified severity, without behavioral disturbance, psychotic disturbance, mood disturbance, and anxiety
CPT/HCPCS: 36415; 36416; 36430; 70450; 71045; 74018; 80048; 80053; 80069; 81001; 82553; 82805; 83605; 83690; 83735; 84443; 84484; 85007; 85025; 85027; 85610; 85730; 86850; 86900; 86901; 87077; 87086; 87186; 90471; 90670; 90682; 93005; 94760; 96365; 96366; G0008; G0009; G8978-GP-CN; G8979-GP-CM; G8987-GO-CN; G8988-GO-CL; J0360; J1815; J1956; J2405; J3480; J7050; P9035; Q2036

== ENCOUNTER 2017-05-29 10:22 | Emergency (ER) | payer MEDICARE ==
[2017-05-29 10:57] LABS: #Basophils 0.1 thou/uL (0.0-0.2); #Eosinphils 0.3 thou/uL (0.0-0.7); #Lymphocytes 1.9 thou/uL (1.20-3.40); #Monocytes 0.9 thou/uL (0.11-0.59); #Neutrophils 12.6 thou/uL (1.40-6.50); %Basophils 0.4 % (0.0-1.0); %Eosinophils 1.9 % (0.0-10.0); %Lymphocytes 12.2 % (21.0-51.0); %Monocytes 5.8 % (0.0-10.0); %Neutrophils 79.6 % (42.0-75.0); Hemoglobin 14.2 g/dL (14.0-18.0); Mean Corpuscular HGB CONC 32.3 g/dL (32.0-36.0); Mean Corpuscular Hemoglobin 28.7 pg (27.0-31.0); Mean Platelet Volume 7.2 fL (7.4-10.4); Platelet Count 701 thou/uL (130-400); Red Blood Cell (RBC) Count 4.96 mill/uL (4.70-6.10); White Blood Cell (WBC) Count 15.8 thou/uL (4.8-10.8)
[2017-05-29 11:18] LABS: Anion Gap 12 mmol/L (10-20); BUN (Urea Nitrogen) 24 mg/dL (8.4-25.7); Calc. Creatinine Clearance 0 mL/min (70-130); Calcium 10.1 mg/dL (7.8-10.44); Carbon Dioxide 27 mmol/L (23-31); Chloride 100 mmol/L (98-107); Estimated GFR-MDRD 67; Glucose 216 mg/dL (83-110); Potassium 4.7 mmol/L (3.5-5.1); Sodium 134 mmol/L (136-145)
--- NOTE | 2017-05-29 11:22 | RAD ---
ABDOMEN 1 VIEW: HISTORY: Evaluate G-tube. COMPARISON: 05/16/17. FINDINGS: Contrast material is present within the feeding tube and stomach. The stomach is decompressed. IMPRESSION: Percutaneous gastrostomy feeding tube is in good position without evidence of leak. POS: [facility]
--- NOTE | 2017-05-29 11:34 | RAD ---
CHEST 1 VIEW: HISTORY: Cough. COMPARISON: 05/15/17. FINDINGS: Cardiac silhouette is magnified by projection. Pulmonary vasculature is unremarkable. Mediastinum i s midline with aortic calcification and a dual-lead left subclavian cardiac electronic device. No lo bar consolidation or evidence of pneumothorax. IMPRESSION: Atherosclerosis. No active cardiopulmonary abnormalities are otherwise demonstrated. POS: [facility]
[2017-05-29 11:59] LABS: Bilirubin Negative (Negative); Blood, Urine Negative (Negative); Clarity CLEAR (Clear); Glucose, Urine (Dipstick) Negative (Negative); Leukocyte Negative (Negative); Nitrite Negative (Negative); Protein, Urine (Dipstick) 30 mg/dL (Neg-Trace); Specific Gravity, Urine 1.018 (1.002-1.036)
[2017-05-29 12:05] LABS: Bacteria/HPF None Seen HPF (None Seen); Hyaline Casts/LPF 0-3 HYALINE CAST LPF (0-3 Hyaline); RBC/HPF None Seen HPF (0-3); Squamous Epithelial None Seen HPF (0-3); WBC/HPF 0-3 HPF (0-3)
== END 2017-05-29 12:35 | disposition home or self-care (01) ==
LOC: ERS 10:22
DX: K94.23 Gastrostomy malfunction (principal); D72.829 Elevated white blood cell count, unspecified; E10.9 Type 1 diabetes mellitus without complications; Z86.73 Personal history of transient ischemic attack (TIA), and cerebral infarction without residual deficits; Z79.899 Other long term (current) drug therapy
CPT/HCPCS: 36415; 51701; 71045; 74018; 80048; 81003; 81015; 85025

== ENCOUNTER 2017-06-10 17:55 | Emergency (ER) | payer MEDICARE ==
--- NOTE | 2017-06-10 20:27 | RAD ---
SUPINE ABDOMEN: 06/10/17 HISTORY: Assess Dobhoff placement. The Dobhoff catheter is not visualized on this exam and may be coiled in the upper esophagus. Nonspecific bowel gas pattern with scattered small and large bowel gas. Contrast material seen in the colon with stool and gas throughout the colon. IMPRESSION: Dobhoff catheter not visualized. POS: [facility]
[2017-06-10] MEDS ORDERED: Dexamethasone 10 MG/ML VIAL ONE (21:00)
== END 2017-06-10 22:06 ==
LOC: ERS 17:55
DX: K94.23 Gastrostomy malfunction (principal); E11.9 Type 2 diabetes mellitus without complications; I10 Essential (primary) hypertension; Z79.899 Other long term (current) drug therapy; Z79.4 Long term (current) use of insulin; Z86.73 Personal history of transient ischemic attack (TIA), and cerebral infarction without residual deficits
CPT/HCPCS: 74018; J1100

== ENCOUNTER 2017-06-15 16:24 | Day surgery (SDC) | payer MEDICARE ==
[~2017-06-15 16:24] MED LIST: Lidocaine 1% PF 5 ML VIAL ONE; Propofol 200 MG/20 ML VIAL ONE
--- NOTE | 2017-06-15 17:24 | HP ---
HISTORY OF PRESENT ILLNESS: Juan Musa is a 77-year-old male patient suffered a hemorrhagic stroke with dysphagia that I had placed a PEG tube on 05/21/2017. Today is Thursday, apparently on Thursday he was having problems. It is reported 8:00 this morning, they were giving some feedings through the t ube. He presented to the office today and the PEG tube was removed. I could not reinsert it. I caprice pect that this tube has been dislodged for several days and has lost its tract. Plan is to place a n ew PEG tube. I have called the patient's and she gives consent. We will plan this under IV sed ation and local as an outpatient. He can return to [facility] postp rocedural. The patient had an open right colectomy for ischemic right colon in 2015 and I saw him fo r it. ALLERGIES: None. TOBACCO: None. ALCOHOL: None. PAST SURGICAL HISTORY: Pacemaker, left subclavian right hemicolectomy that I performed on 12/14/2015 with subsequent closure wound on 12/18/2015 for ischemic right colon, severe inflammatory reaction, retroperitoneum, and right hand drain placement. 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 LV function 50Z%-55%. HOME MEDICATIONS: Plavix, atorvastatin, atenolol, aspirin, Avodart, Plavix, Flomax, lisinopril, hydr ochlorothiazide, FlexPen sliding scale insulin. PHYSICAL EXAMINATION: GENERAL: Patient is brought in by EMS. He is noncommunicative. LUNGS: Clear to auscultation. CARDIAC: Regular rate and rhythm without murmur or gallop. ABDOMEN: Soft, nontender, midline wound. Per above surgical history, PEG tube removed. I could not replace it, would not flush. I cannot find the tract. EXTREMITIES: Unremarkable. ASSESSMENT AND PLAN: Hemorrhagic stroke with dislodged percutaneous endoscopic gastrostomy tube. We will plan replacement of percutaneous endoscopic gastrostomy tube today per telephone I had talked t o his , risks and benefits discussed and he consents. MEDICATIONS: In the skilled nursing, amlodipine 10 mg a day, atenolol 50 mg twice a day, atorvastatin d catrina, Proscar G-tube daily, lisinopril daily, Nystatin daily, senna daily, Bactrim-DS daily, Flomax d aily, insulin sliding scale.
[2017-06-15] MEDS ORDERED: Lidocaine 1% (PF) 30 ML VIAL ONE (17:58)
[2017-06-15] MEDS ORDERED: CEFAZOLIN/Water 2 GM/20 ML SYRINGE ONE (18:32)
--- NOTE | 2017-06-16 09:59 | OP ---
DATE OF PROCEDURE: 06/15/2017 PREOPERATIVE DIAGNOSES: Dislodged PEG tube - long-term, having problems with a PEG tube for the p ast four days, sent to my office, could not irrigate his PEG tube and when removed, I could not repla ce it as it lost its track. I suspect dislodgement to the abdominal wall. Hemorrhagic stroke, hemip legic, noncommunicative. POSTOPERATIVE DIAGNOSES: Dislodged PEG tube - long-term, having problems with a PEG tube for the past four days, sent to my office, could not irrigate his PEG tube and when removed, I could not repl karla it as it lost its track. I suspect dislodgement to the abdominal wall. Hemorrhagic stroke, amarilys plegic, noncommunicative. PROCEDURE PERFORMED: PEG tube. SURGEON: Dr. Cornelio Reynoso. ANESTHESIA: Intravenous sedation, local 1% Xylocaine. PROCEDURE IN DETAIL: At the patient's bedside under intravenous sedation, Endo Suite, endoscope plac ed per os under direct visualization and using air insufflation passed throughout the esophagus and t he stomach. The stomach inflated. Right subcostal indentation noted and the area prepared with Hibi clens and local anesthetic infiltrated into the skin and subcutaneous tissue. Stab incision made. T rocar catheter introduced percutaneously, visualized endoscopically within the gastric lumen and wire passed through the trocar, grasped with a snare and endoscope and snare brought out through the mout h and at this point, the wire connected to the feeding tube and it was lubricated and dragged back do wn through the mouth, esophagus, into the gastric lumen and secured to the abdominal wall with a fixa tion device. Tube tailored to length and feeding device secured. The patient tolerated the procedur e well.
== END 2017-06-15 20:25 | disposition home or self-care (01) ==
LOC: SDC 16:24
PROVIDERS: ATTEND Specialist
PROC: 0DH63UZ Insertion of Feeding Device into Stomach, Percutaneous Approach (ICD-10-PCS; principal; 2017-06-15)
DX: K94.29 Other complications of gastrostomy (principal); I69.359 Hemiplegia and hemiparesis following cerebral infarction affecting unspecified side; I69.398 Other sequelae of cerebral infarction; I69.391 Dysphagia following cerebral infarction; R13.10 Dysphagia, unspecified; I10 Essential (primary) hypertension; E03.9 Hypothyroidism, unspecified; I25.2 Old myocardial infarction; H49.00 Third [oculomotor] nerve palsy, unspecified eye; N40.0 Benign prostatic hyperplasia without lower urinary tract symptoms; I25.10 Atherosclerotic heart disease of native coronary artery without angina pectoris; E78.2 Mixed hyperlipidemia; E11.9 Type 2 diabetes mellitus without complications; J98.4 Other disorders of lung; J44.9 Chronic obstructive pulmonary disease, unspecified; G31.84 Mild cognitive impairment of uncertain or unknown etiology; R32 Unspecified urinary incontinence; Z79.02 Long term (current) use of antithrombotics/antiplatelets; Z79.4 Long term (current) use of insulin; Z79.2 Long term (current) use of antibiotics; Z79.899 Other long term (current) drug therapy; Z98.890 Other specified postprocedural states; Z87.891 Personal history of nicotine dependence
CPT/HCPCS: 36416; J2001; J2704

== ENCOUNTER 2017-07-06 14:32 | Inpatient (IN) | payer MEDICARE, SELFPAY ==
--- NOTE | 2017-07-06 17:28 | HP ---
DATE OF ADMISSION: 07/06/2017 CHIEF COMPLAINT: Altered mental status. HISTORY OF PRESENT ILLNESS: This is a 77-year-old -[place] male with a known recent history of intracranial hemorrhage on 06/15/2017, following which the patient was seen by Dr. Cornelio Reynoso during that admission and the patient remained nonverbal since then and was aphasic. He had a PEG tu be placed for feeding and was discharged to senior living. The patient was in his usual state of heal th and was getting tube feeding at the senior living, developed a sudden change in his mental status w ith low blood pressures. He was sent to the [place] and was noted to have blood pressures in the 90s with a respiratory rate of 22. The patient had a chest x-ray during at the [facility] ER, which did not show any evidence of pneumonia, but a UA was showing evidence of huong urinary tract i nfection with elevated white count of 18,000. The patient was immediately transferred to [facility] for further evaluation. When the patient arrived here, he had a CT of the head, which showed a pr evious basal ganglia hemorrhage, which was resolving, but otherwise no new changes were noted. The p atient's baseline mental status is aphasic and nonverbal. The patient was seen in the ER. No family members were available at this time and the patient is on Venturi mask, saturating 95% on 10 liters and the patient is severely hypoxic. PAST MEDICAL HISTORY: 1. Type 1 diabetes. 2. Hypertension. 3. Hypothyroidism. 4. 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 5. History of coronary stent placement in the past. PAST SURGICAL HISTORY: 1. Pacemaker placement, left subclavian. 2. Right hemicolectomy. 3. History of ischemic right colon, severe inflammatory reaction. 4. History of PEG tube placement. SOCIAL HISTORY: The patient lives at senior living currently. He has a who attends on him and b ased on discussion with the ER physician and the , she wants the patient to be a FULL CODE. He h as no history of smoking, no history of alcohol, no history of illicit drug use. FAMILY HISTORY: No family history could be obtained at this time as the patient is completely obtund ed. There is no family members present at this time. ALLERGIES: No known drug allergies. HOME MEDICATIONS: 1. Amlodipine 10 mg p.o. daily. 2. Atenolol 50 mg p.o. daily. 3. Atorvastatin 20 mg p.o. daily. 4. Avodart 0.5 mg p.o. daily. 5. Levemir 30 units subcu daily. 6. Tamsulosin 0.4 mg p.o. daily. REVIEW OF SYSTEMS: Unable to obtain any review of systems as the patient is completely obtunded and no family member available at the bedside. PHYSICAL EXAMINATION: VITAL SIGNS: Blood pressure is 100/41, respiratory rate is 22, and saturation is 97% on 10 liters on Venturi mask. GENERAL: The patient is seen lying in the bed, does not appear to be in any acute distress, but is n onresponsive even on verbal stimuli. HEENT: Atraumatic, normocephalic. PERRLA. Extraocular movements were intact. Oral mucosa is pink and moist. CARDIOVASCULAR: S1, S2 normal. No murmurs, rubs or gallops. LUNGS: Bilateral air entry was equal. No wheezing, no crackles. ABDOMEN: Soft, nontender, no guarding, no rebound tenderness. Bowel sounds normal. MUSCULOSKELETAL: No calf tenderness. No pedal edema. No joint tenderness, no joint swelling. SKIN: No cyanosis, no erythema, no rash, no pallor. PSYCHIATRIC: No signs of agitation were noted. LYMPHATICS: No evidence of any generalized lymph nodes were noted. NECK: No JVD, no thyromegaly. LABORATORY DATA: WBC is 18.4, hemoglobin is 10.6, hematocrit is 29.1, and platelets are 469. Sodium is 136, potassium is 4.7, chloride is 90, BUN is 125, and creatinine is 3.03. Blood sugar 279, AST 164, and ALT 126. UA was frankly positive for urinary tract infection. IMAGING: CT of the head was done, no evidence of any acute intracranial hemorrhage, but showed old r esolving basal ganglia hemorrhage. ASSESSMENT: 1. Septic shock. 2. Acute hypoxic respiratory failure. 3. Urinary tract infection. 4. Moderate to severe dehydration. 5. Severe protein-calorie malnutrition. 6. Acute kidney injury on chronic kidney disease. 7. Huong hematuria. 8. History of type 2 diabetes mellitus, poorly controlled. 9. History of hemorrhagic stroke. PLAN: 1. Plan is to closely monitor this patient in [facility]. The patient is currently a FULL CODE. The kelli ent has been given 2 liters of fluid boluses in the ER. We will continue one more fluid bolus until the patient makes good urine output and will continue on the rate of 125 an hour. The patient would need a central line, we will discuss with the ER physician to place a central line before transferrin g the patient to IMCU. We will start the patient on IV antibiotics with cefepime 2 grams IV q.8 hour s and levofloxacin 500 mg q.48 hours to cover for Pseudomonas infection. 2. The patient has acute kidney injury. We will avoid nephrotoxic medications. We will continue th e above fluids and we will consult Nephrology. 3. The patient has a history of hemorrhagic stroke and has baseline aphasia. We will closely monito r. 4. The patient has pretty severely hypoxic and is on Venturi mask at this time. We will closely mon itor and will get ABG today to look at a baseline hypoxia. The patient could be possibly having a PE , so we will need to closely monitor. The patient is bedbound. 5. We will get a CT of the chest with PE protocol. 6. Type 2 diabetes mellitus, poorly controlled. We will start the patient on diabetes protocol with sliding scale insulin. At this time, we will hold off on the Levemir. 7. DVT prophylaxis, SCDs. The patient had a recent brain bleed. I spent 75 minutes with this patient in total and 1 hour of the critical care time.
--- NOTE | 2017-07-06 19:38 | ULT ---
BILATERAL LOWER EXTREMITY VENOUS DOPPLER DUPLEX ULTRASOUND: CPT: [address] ICD-10-PCS: B54D INDICATIONS: Bilateral lower extremity edema. TECHNIQUE: Color-flow Doppler, spectral wave-form analysis of pulsed Doppler, and monroy-scale imaging with compre ssion and augmentation were used to evaluate the bilateral common femoral, femoral, popliteal, drilling supervisor ior tibial, and superficial femoral veins, and the proximal portions of the profunda femoral and grea ter saphenous veins. FINDINGS: Appropriate compressibility and flow within the imaged deep venous system of each lower extremity. IMPRESSION: No deep venous thrombosis. POS: EDENILSON
[2017-07-06] MEDS ORDERED: HYDROcodone/Acetaminophen 5/325 mg Tablet PO PRN (20:10)
[2017-07-06] MEDS ORDERED: Ondansetron HCl/PF 4 MG/2 ML Vial IVP PRN (20:10)
[2017-07-06] MEDS ORDERED: Dextrose 5% in Water 1,000 ML IV PRN (20:10)
[2017-07-06] MEDS ORDERED: HumaLOG 300 UNITS/3 ML VIAL SC PRN (20:10)
[2017-07-06] MEDS ORDERED: Dextrose 50% Abboject 50 ML SYRINGE SLOW IVP PRN (20:10)
[2017-07-06] MEDS ORDERED: Levofloxacin 750 mg/D5W 500 MG in Premix Bag 1 BAG IVPB SCH (20:30)
[2017-07-06] MEDS ORDERED: Cefepime 2 GM in Sodium Chloride 0.9% 100 ML IVPB SCH (21:00)
[2017-07-06] MEDS: Sodium Chloride 0.9% 1,000 ML IV SCH ×2 (21:15)
[2017-07-06] MEDS: Pantoprazole 40 MG VIAL IVP SCH (21:15)
[2017-07-06] MEDS: Cefepime 2 GM, Syringe 2.5 ML in Sodium Chloride 0.9% 10 ML SLOW IVP SCH (21:16)
--- NOTE | 2017-07-06 22:30 | CT ---
ABDOMEN CT WITHOUT CONTRAST: PELVIS CT WITHOUT CONTRAST: HISTORY: Septic patient. Urinary tract infection. COMPARISON: 12/14/2015 TECHNIQUE: An abdomen and pelvis CT is performed without IV or oral contrast. Coronal reformatted images are her bmitted for interpretation. FINDINGS: ABDOMEN: Small right-sided pleural effusion. Dependent atelectatic changes. Heart size is normal. No significant pericardial fluid. There is atherosclerosis of a nonaneurysmal aorta. Limited evaluation of solid organs due to beam attenuation artifact and lack of IV contrast. Grossly , the liver, spleen, pancreas, and adrenal glands are unremarkable. No retrocrural, periportal, or gastrohepatic lymphadenopathy. No mesenteric mass, lymphadenopathy, free air, or free fluid. Limited evaluation of the solid organs due to lack of IV contrast. Grossly, no solid organ abnormali ty. There is mucosal thickening involving the distal sigmoid colon and rectum. Findings are nonspecific. There is an anastomotic suture chain in the right hemicolon, compatible with a partial right-sided colectomy. The gallbladder is distended. There is pericholecystic fluid. The possibility of cholecystitis davidson ot be excluded. Bilaterally, no evidence of obstructive uropathy. PELVIS: The urinary bladder is partially decompressed due to Mireles catheterization. No pelvic mass, lymphadenopathy, free air, or free fluid. There are no lytic or blastic lesions within the osseous structures. IMPRESSION: 1. No evidence of obstructive uropathy. 2. Distended gallbladder. There is pericholecystic fluid. Gallbladder ultrasound to assess for pos sible cholecystitis. 3. Mucosal thickening involving the distal sigmoid colon and rectum, nonspecific. Colonoscopy is re commended to exclude malignancy. POS: PPP
--- NOTE | 2017-07-06 22:52 | CON ---
DATE OF CONSULTATION: 07/06/2017 REASON FOR CONSULTATION: Elevated creatinine and BUN. HISTORY OF PRESENT ILLNESS: This is a jail patient, who cannot give any further history, who presented to the hospital after noted to have a creatinine of 3, BUN of more than 120 and altered me ntal status. The patient is being admitted for urosepsis. No further history is available. PAST MEDICAL HISTORY: Significant for type 1 diabetes, hypertension, history of hemorrhagic stroke, history of coronary artery disease, stent placement, history of pacemaker, history of hemicolectomy, history of ischemic right colon, history of PEG tube, history of jail placement. SOCIAL ECONOMIC HISTORY: Unavailable. HOME MEDICATIONS: List reviewed. HOSPITAL MEDICATIONS: List reviewed. ALLERGIES: Reviewed. REVIEW OF SYSTEMS: Unobtainable. PHYSICAL EXAMINATION: GENERAL: The patient is resting. VITAL SIGNS: Afebrile, pulse is 70, breathing at 16, blood pressure 100/41. GENERAL APPEARANCE AND MENTAL STATUS: Fair. HEAD/NECK: Normocephalic. Atraumatic. EYES: EOMI. No deformity. EARS: Clear. No ulcers. NOSE: Intact. No lesions. MOUTH: Clear. No discharge. THROAT: Clear. No exudate. LUNGS: Clear. No crackles. CARDIAC: S1, S2. No rub. ABDOMEN: Benign. BS+. GENITALIA/RECTUM: Mireles absent. BACK/EXTREMITIES: Edema 0+ Ulcer-. NEUROLOGICAL: The patient is somnolent. SKIN: Rash- Bruise-. LYMPHATICS: Edema- Ulcer-. LABORATORY DATA: Show BUN of 125, creatinine 3.03. ASSESSMENT AND RECOMMENDATIONS: 1. Acute kidney injury due to dehydration. 2. Hypertension, stable. 3. Uremia, continue hydration. No indication for dialysis at this time. Prognosis is extremely poo r. is a possibility during the admission.
[2017-07-07 01:00] LABS: Lactic Acid 1.6 mmol/L (0.5-2.2)
[2017-07-07 05:22] LABS: #Lymphocytes 0.9 thou/uL (1.20-3.40); #Monocytes 1.1 thou/uL (0.11-0.59); #Neutrophils 13.6 thou/uL (1.40-6.50); %Eosinophils 0.3 % (0.0-10.0); %Lymphocytes 5.7 % (21.0-51.0); %Monocytes 6.9 % (0.0-10.0); %Neutrophils 87.1 % (42.0-75.0); Hemoglobin 10.6 g/dL (14.0-18.0); Mean Corpuscular HGB CONC 32.3 g/dL (32.0-36.0); Mean Corpuscular Hemoglobin 29.4 pg (27.0-31.0); Mean Corpuscular Volume 90.8 fl (80.0-94.0); Mean Platelet Volume 7.6 fL (7.4-10.4); Platelet Count 461 thou/uL (130-400); RBC Distribution Width 13.7 % (11.5-14.5); Red Blood Cell (RBC) Count 3.61 mill/uL (4.70-6.10); White Blood Cell (WBC) Count 15.7 thou/uL (4.8-10.8)
[2017-07-07 05:29] LABS: Anion Gap 11 mmol/L (10-20); Calc. Creatinine Clearance 35 mL/min (70-130); Calcium 8.7 mg/dL (7.8-10.44); Carbon Dioxide 33 mmol/L (23-31); Chloride 105 mmol/L (98-107); Estimated GFR-MDRD 50; Glucose 255 mg/dL (83-110); Potassium 4.7 mmol/L (3.5-5.1); Sodium 144 mmol/L (136-145)
[2017-07-07 05:39] LABS: BUN (Urea Nitrogen) 137 mg/dL (8.4-25.7)
[2017-07-07] MEDS: Sodium Chloride 0.9% 1,000 ML IV SCH ×3 (06:06→21:29)
[2017-07-07] MEDS: HumaLOG 300 UNITS/3 ML VIAL SC PRN (06:12)
--- NOTE | 2017-07-07 09:39 | PRG ---
DATE OF SERVICE: 07/07/2017 SUBJECTIVE: This is a 77-year-old gentleman being seen for acute kidney injury. PHYSICAL EXAMINATION: GENERAL: Patient is resting. VITAL SIGNS: Afebrile, pulse 72, breathing 16, blood pressure 105/47. HEAD/NECK: Normocephalic. Atraumatic. EYES: EOMI. No deformity. EARS: Clear. No ulcers. NOSE: Intact. No lesions. MOUTH: Clear. No discharge. THROAT: Clear. No exudate. LUNGS: Clear. No crackles. CARDIAC: S1, S2. No rub. ABDOMEN: Benign. BS+. GENITALIA/RECTUM: Mireles absent. BACK/EXTREMITIES: Edema 0+ Ulcer- NEUROLOGICAL: The patient is nonverbal. SKIN: Rash- Bruise- LYMPHATICS: Edema- Ulcer- LABORATORY DATA: Show creatinine 1.6. ASSESSMENT AND PLAN: 1. Acute kidney injury, improved. 2. Hypertension, stable. 3. Anemia, stable. 4. Uremia, stable. No indication for dialysis at this time. Continue hydration.
--- NOTE | 2017-07-07 10:56 | PDOC.PN ---
- Subjective Encounter Start Date: 07/07/17 Encounter Start Time: 10:45 -: non-verbal Subjective: f/u for septic shock and UTI on Cefepime and Levaquin. Remains aphasic -: at baseline after recent basal ganglia hemorrhagic CVA. - Objective Resuscitation Status: Resuscitation Status FULL:Full Resuscitation MAR Reviewed: Yes Vital Signs & Weight: Vital Signs (12 hours) Temp Pulse Resp BP Pulse Ox 07/07/17 07:20 98.4 F 92 88/42 L 100 07/07/17 04:02 97.5 F L 94 16 105/47 L 100 07/07/17 00:04 96.6 F L 86 17 100/54 L 100 Weight Admit Weight 146 lb 11.2 oz Weight 143 lb 11.2 oz I&O: 07/06/17 07/07/17 07/08/17 06:59 06:59 06:59 Intake Total 1138 Output Total 1450 Balance -312 Result Diagrams: 07/07/17 04:33 07/07/17 04:33 Additional Labs: Accuchecks 07/07/17 07/07/17 07/07/17 09:03 06:12 03:23 POC Glucose 203 H 266 H 290 H Microbiology 07/06/17 20:50 Venous blood - Right Arm Blood Culture - Preliminary Specimen has been received and culture in progress. No Growth to date. 07/06/17 20:50 Venous blood - Left Hand Blood Culture - Preliminary Specimen has been received and culture in progress. No Growth to date. 07/06/17 10:00 Venous blood - Right Hand Blood Culture - Preliminary Specimen has been received and culture in progress. No Growth to date. 07/06/17 10:00 Venous blood - Left Hand Blood Culture - Preliminary Specimen has been received and culture in progress. No Growth to date. Laboratory Tests 07/06/17 07/06/17 07/06/17 10:00 10:00 20:51 WBC 18.4 H BUN Greater than 125 H Creatinine 3.03 H Lactic Acid 2.1 07/07/17 00:38 WBC BUN Creatinine Lactic Acid 1.6 Radiology Reviewed by me: Yes (CT abd/pel - no obstructive uropathy, distended GB) EKG Reviewed by me: Yes (Tele - SR) Phys Exam - Physical Examination unresponsive, occasional grimace with painful stimuli HEENT: PERRLA, oral pharynx no lesions Neck: no JVD, supple Respiratory: no wheezing, no rales, no rhonchi Cardiovascular: RRR, no significant murmur PEG site CDI Gastrointestinal: soft, non-tender, no distention, positive bowel sounds Musculoskeletal: no edema, pulses present R hemiplegia, aphasic, dysphagia minimal grimace to painful stimuli Skin: no rash, normal turgor, cap refill <2 seconds Deviation from normal: Mireles in place with francisco urine Dx/Plan (1) Septic shock Code(s): A41.9 - SEPSIS, UNSPECIFIED ORGANISM; R65.21 - SEVERE SEPSIS WITH SEPTIC SHOCK Status: Acute Comment: Continue IVF's and monitor BP response, continue Cefepime and Levaquin pending final Ucx and Blood cx (2) Acute respiratory failure with hypoxia Code(s): J96.01 - ACUTE RESPIRATORY FAILURE WITH HYPOXIA Status: Acute Comment: Improved with O2 supplementation, continue O2 2-3L/min NC (3) UTI (urinary tract infection) due to urinary indwelling Mireles catheter Code(s): T83.511A - I/I REACT D/T INDWELLING URETHRAL CATHETER, INIT; N39.0 - URINARY TRACT INFECTION, SITE NOT SPECIFIED Status: Acute Qualifiers: Indwelling urinary catheter type: indwelling urethral catheter Comment: Await final Ucx results, continue Cefepime and Levaquin, IVF's and monitor output, Mireles catheter changed (4) Moderate dehydration Code(s): E86.0 - DEHYDRATION Status: Acute Comment: Improved with IVF's, continue IVF's and free-H2O supplementation per PEG tube (5) CARMEN (acute kidney injury) Code(s): N17.9 - ACUTE KIDNEY FAILURE, UNSPECIFIED Status: Acute Comment: Improved with IVF's, avoid nephrotoxic meds and contrast media, serial creatinine (6) 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 Code(s): I63.212 - CEREBRAL INFRC DUE TO UNSP OCCLS OR STENOSIS OF L VERTEB ART ; I63.22 - CEREB INFRC DUE TO UNSP OCCLS OR STENOSIS OF BASILAR ARTERY Status : Chronic Comment: continue routine care, no acute decompensation (7) 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 - FLACCID HEMIPLEGIA AFFECTING RIGHT DOMINANT SIDE Status: Chronic Comment: PT/OT for ROM exercises (8) Dysphagia Code(s): R13.10 - DYSPHAGIA, UNSPECIFIED Status: Chronic Qualifiers: Dysphagia type: oropharyngeal phase Qualified Code(s): R13.12 - Dysphagia, oropharyngeal phase Comment: s/p PEG tube with TF's using Diabetic 1.5 formula up to 6 cans daily bolus feeds - Plan continue antibiotics, PT/OT, social and human services assistant, speech therapy, DVT proph w/SCDs Continue Cefepime and Levaquin -: Continue IVF's -: Consult Palliative care team -: Await final Ucx and Blood cx -: AM lab: BMP, CBC * .
--- NOTE | 2017-07-07 12:36 | CON ---
DATE OF CONSULTATION: 07/07/2017 CONSULTING PHYSICIAN: Ionaist . REASON FOR CONSULTATION: IMCU placement. HISTORY OF PRESENT ILLNESS: The patient cannot give a history, as he is aphasic. What I have is gathered from reviewing the chart. The patient is a 77 -year-old male, who came from the residential yesterday for apparent urosepsis. He has been placed on IV antibiotics. PAST MEDICAL HISTORY: 1. Diabetes mellitus. 2. Hemorrhagic stroke. 3. Coronary artery disease. 4. Coronary artery stent placement. 5. Pacemaker placement. 6. Hemicolectomy. 7. PEG tube placement. FAMILY MEDICAL HISTORY: Unremarkable. SOCIAL HISTORY: Nonsmoker, nondrinker. ALLERGIES: None. MEDICATIONS PRIOR TO ADMISSION: Nystatin swish and swallow, Proscar, docusate, Xanax, acetaminophen, atenolol, Norvasc, atorvastatin, Flomax. MEDICATIONS: Lisinopril/hydrochlorothiazide and liver insulin. REVIEW OF SYSTEMS: Cannot be obtained secondary to the patient's altered mental status. PHYSICAL EXAMINATION: VITAL SIGNS: Temperature 98.4, pulse 92, respirations 16, O2 sat 100% on 2 liters, blood pressure 88/40-100/54. GENERAL: Patient is somnolent, cannot get him to arouse. He looks calm, in no distress. HEENT: Pupils react. Sclerae icteric. Oropharynx clear. NECK: No JVD. LUNGS: Clear. CARDIOVASCULAR: S1 and S2 regular. ABDOMEN: Soft, nontender. PEG tube noted. EXTREMITIES: No clubbing or cyanosis. He has significant muscle wasting. LABORATORY DATA: White blood cell count 15.7, hematocrit 32.8, platelet count 461. Sodium 144, potassium 4.7, chloride 105, CO2 of 33, BUN 137, creatinine 1.6, glucose 203. Urinalysis obtained from an outside facility, demonstrated too numerous to count white blood cells. ASSESSMENT: 1. Urosepsis. 2. Dehydration. 3. Prerenal azotemia. PLAN: 1. He is continuing gentle hydration. 2. Agree with antibiotic therapy, enteral tube feeds. 3. Insulin. 4. Code status probably needs to be addressed as the long-term prognosis looks poor. 70 min. time was spent on this patient. Of that time, >50% was spent with the patient and/or on the patients hospital unit [facility]
[2017-07-07] MEDS: Cefepime 2 GM, Syringe 2.5 ML in Sodium Chloride 0.9% 10 ML SLOW IVP SCH ×2 (12:42→21:25)
[2017-07-07] MEDS: Nystatin 500,000 UNITS/5 ML UDCUP SSW SCH (21:24)
[2017-07-07] MEDS: Pantoprazole 40 MG VIAL IVP SCH (21:25)
[2017-07-07] MEDS: Atorvastatin Calcium 20 MG TAB PO SCH (21:28)
[2017-07-08] MEDS: HumaLOG 300 UNITS/3 ML VIAL SC PRN ×4 (00:27→22:12)
[2017-07-08 04:14] LABS: Band 6 % (5-11); Eosinophils 1 % (0-10); Hemoglobin 10.4 g/dL (14.0-18.0); Lymphocytes 5 % (21-51); MDiff Complete? YES; Mean Corpuscular HGB CONC 32.3 g/dL (32.0-36.0); Mean Corpuscular Hemoglobin 29.7 pg (27.0-31.0); Mean Corpuscular Volume 91.8 fl (80.0-94.0); Mean Platelet Volume 7.5 fL (7.4-10.4); Monocytes 3 % (0-10); Neutrophil 85 % (42-75); PLT Morphology Comment Appears Increased; Platelet Count 524 thou/uL (130-400); RBC Distribution Width 13.8 % (11.5-14.5); Red Blood Cell (RBC) Count 3.51 mill/uL (4.70-6.10); White Blood Cell (WBC) Count 13.4 thou/uL (4.8-10.8)
[2017-07-08 04:17] LABS: Anion Gap 13 mmol/L (10-20); BUN (Urea Nitrogen) 103 mg/dL (8.4-25.7); Calc. Creatinine Clearance 38 mL/min (70-130); Calcium 9.2 mg/dL (7.8-10.44); Carbon Dioxide 29 mmol/L (23-31); Chloride 116 mmol/L (98-107); Estimated GFR-MDRD 57; Glucose 412 mg/dL (83-110); Potassium 4.1 mmol/L (3.5-5.1); Sodium 154 mmol/L (136-145)
[2017-07-08] MEDS: Sodium Chloride 0.9% 1,000 ML IV SCH ×2 (05:30→12:21)
[2017-07-08] MEDS: Finasteride 5 MG TAB PO SCH (09:12)
[2017-07-08] MEDS: Nystatin 500,000 UNITS/5 ML UDCUP SSW SCH ×4 (09:12→20:22)
[2017-07-08] MEDS: Cefepime 2 GM, Syringe 2.5 ML in Sodium Chloride 0.9% 10 ML SLOW IVP SCH ×2 (09:14→20:22)
--- NOTE | 2017-07-08 13:22 | PDOC.PN ---
- Subjective Encounter Start Date: 07/08/17 Encounter Start Time: 13:05 Subjective: f/u for septic shock secondary to UTI with Enterococcus on Cefepime and -: Levaquin. Remains aphasic and minimally responsive except to moving or -: turning. Receiving IVF's for dehydration and hypernatremia. - Objective Resuscitation Status: Resuscitation Status FULL:Full Resuscitation MAR Reviewed: Yes Vital Signs & Weight: Vital Signs (12 hours) Temp Pulse Resp BP Pulse Ox 07/08/17 10:57 98.6 F 92 17 124/52 L 100 07/08/17 08:00 98.7 F 105 H 16 100 07/08/17 07:05 98.7 F 105 H 16 116/52 L 100 07/08/17 04:20 98.1 F 104 H 18 130/48 L 100 Weight Admit Weight 146 lb 11.2 oz Weight 152 lb I&O: 07/07/17 07/08/17 07/09/17 06:59 06:59 06:59 Intake Total 1138 5332 80 Output Total 1450 2825 Balance -312 2507 80 Result Diagrams: 07/08/17 03:41 07/08/17 03:41 Additional Labs: Accuchecks 07/08/17 07/08/17 07/08/17 10:29 05:34 00:20 POC Glucose 306 H 334 H 405 H 07/07/17 07/07/17 20:19 16:37 POC Glucose 375 H 329 H Microbiology 07/06/17 10:49 Urine colon catheter Urine Culture - Final Enterococcus species 07/06/17 20:50 Venous blood - Right Arm Blood Culture - Preliminary Specimen has been received and culture in progress. No Growth to date. 07/06/17 20:50 Venous blood - Right Arm Blood Culture - Preliminary NO GROWTH AT 48 HOURS 07/06/17 20:50 Venous blood - Left Hand Blood Culture - Preliminary Specimen has been received and culture in progress. No Growth to date. 07/06/17 20:50 Venous blood - Left Hand Blood Culture - Preliminary NO GROWTH AT 48 HOURS 07/06/17 10:00 Venous blood - Right Hand Blood Culture - Preliminary Specimen has been received and culture in progress. No Growth to date. 07/06/17 10:00 Venous blood - Right Hand Blood Culture - Preliminary NO GROWTH AT 48 HOURS 07/06/17 10:00 Venous blood - Left Hand Blood Culture - Preliminary Specimen has been received and culture in progress. No Growth to date. 07/06/17 10:00 Venous blood - Left Hand Blood Culture - Preliminary NO GROWTH AT 48 HOURS Laboratory Tests 07/06/17 07/06/17 07/06/17 10:00 10:00 20:51 WBC 18.4 H Hgb Plt Count Neutrophils % Neutrophils % (Manual) Sodium BUN Greater than 125 H Creatinine 3.03 H Lactic Acid 2.1 07/07/17 07/07/17 07/07/17 00:38 04:33 04:33 WBC 15.7 H Hgb 10.6 L Plt Count 461 H Neutrophils % 87.1 H Neutrophils % (Manual) Sodium 144 BUN Creatinine 1.62 H Lactic Acid 1.6 07/08/17 03:41 WBC Hgb Plt Count Neutrophils % Neutrophils % (Manual) 85 H Sodium BUN Creatinine Lactic Acid EKG Reviewed by me: Yes (Tele - Sinus tachycardia in low 100's) Phys Exam - Physical Examination unresponsive, spontaneous respirations white plaques on tongue, dry oral mucosa HEENT: PERRLA Neck: no JVD, supple diminished in bases, few scattered coarse sounds Respiratory: no wheezing tachycardic Cardiovascular: no significant murmur, no rub PEG site CDI Gastrointestinal: soft, non-tender, no distention, positive bowel sounds Musculoskeletal: no edema, pulses present R hemiplegia, aphasic, dysphagia minimal grimace to painful stimuli Deviation from normal: poor turgor Skin: no rash, cap refill <2 seconds Deviation from normal: Colon with francisco urine Dx/Plan (1) Septic shock Code(s): A41.9 - SEPSIS, UNSPECIFIED ORGANISM; R65.21 - SEVERE SEPSIS WITH SEPTIC SHOCK Status: Acute Comment: Continue IVF's and monitor BP response, start Zosyn 3.375gm IV q6h, d/c Levaquin (2) Acute respiratory failure with hypoxia Code(s): J96.01 - ACUTE RESPIRATORY FAILURE WITH HYPOXIA Status: Acute Comment: Improved with O2 supplementation, continue O2 2L/min NC (3) UTI (urinary tract infection) due to urinary indwelling Colon catheter Code(s): T83.511A - I/I REACT D/T INDWELLING URETHRAL CATHETER, INIT; N39.0 - URINARY TRACT INFECTION, SITE NOT SPECIFIED Status: Acute Qualifiers: Indwelling urinary catheter type: indwelling urethral catheter Comment: Await final Ucx results, d/c Levaquin and start Zosyn based on Ucx sensitivities, IVF's and monitor output, Colon catheter changed (4) CARMEN (acute kidney injury) Code(s): N17.9 - ACUTE KIDNEY FAILURE, UNSPECIFIED Status: Acute Comment: Improved with IVF's, avoid nephrotoxic meds and contrast media, serial creatinine (5) 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 Code(s): I63.212 - CEREBRAL INFRC DUE TO UNSP OCCLS OR STENOSIS OF L VERTEB ART ; I63.22 - CEREB INFRC DUE TO UNSP OCCLS OR STENOSIS OF BASILAR ARTERY Status : Chronic Comment: continue routine care, no acute decompensation (6) 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 - FLACCID HEMIPLEGIA AFFECTING RIGHT DOMINANT SIDE Status: Chronic Comment: PT/OT for ROM exercises (7) Severe dehydration Code(s): E86.0 - DEHYDRATION Status: Acute Comment: Continue IVF's, start free-H2O flushes 200ml PEG tube q4h (8) Acute hypernatremia Code(s): E87.0 - HYPEROSMOLALITY AND HYPERNATREMIA Status: Acute Comment: D5W IVF, serial Na+ assessments (9) Dysphagia Code(s): R13.10 - DYSPHAGIA, UNSPECIFIED Status: Chronic Qualifiers: Dysphagia type: oropharyngeal phase Qualified Code(s): R13.12 - Dysphagia, oropharyngeal phase Comment: s/p PEG tube with TF's using Diabetic 1.5 formula up to 6 cans daily bolus feeds - Plan continue antibiotics, PT/OT, social services director, DVT proph w/SCDs Start Zosyn today -: D/C Levaquin -: Continue Cefepime another 24h then consider d/c -: Start free-H2O flushes 200ml q4h -: D5W @ 50ml/h * AM lab: BMP, CBC * Palliative care following
[2017-07-08] MEDS ORDERED: Insulin Detemir 100 UNITS/ML 10 UNITS in Pre-Filled Syringe 1 EACH SC SCH (13:30)
--- NOTE | 2017-07-08 13:44 | PRG ---
DATE OF SERVICE: 07/08/2017 SUBJECTIVE: This is a 77-year-old gentleman, being seen for acute kidney injury. The patient is res ting. OBJECTIVE: See above. VITAL SIGNS: Afebrile, pulse 92, breathing at 16, blood pressure 124/52. Awake, alert, in no acute distress. GENERAL APPEARANCE AND MENTAL STATUS: Fair. HEAD/NECK: Normocephalic. Atraumatic. EYES: EOMI. No deformity. EARS: Clear. No ulcers. NOSE: Intact. No lesions. MOUTH: Clear. No discharge. THROAT: Clear. No exudate. LUNGS: Clear. No crackles. CARDIAC: S1, S2. No rub. ABDOMEN: Benign. BS+. GENITALIA/RECTUM: Mireles absent. BACK/EXTREMITIES: Edema 0+, ulcer. NEUROLOGICAL: The patient is resting. SKIN: Rash - bruise. LYMPHATICS: Edema - ulcer. LABORATORY DATA: Hemoglobin 10.4, creatinine 1.45, sodium 154. ASSESSMENT AND RECOMMENDATIONS: 1. Acute kidney injury, chronic kidney disease, stable. 2. Hypernatremia, multifactorial. We would recommend changing the IV fluid to D5 water. Overall, prognosis is poor. Agree with hospic e and palliative care consultation. I will sign off on this patient. Please reconsult as needed.
[2017-07-08] MEDS: Piperacillin/Tazobactam 3.375 GM in Sodium Chloride 0.9% 100 ML IVPB SCH ×2 (17:51→20:43)
[2017-07-08] MEDS: Dextrose 5% in Water 1,000 ML IV SCH (17:56)
--- NOTE | 2017-07-08 18:14 | PRG ---
DATE OF SERVICE: 07/08/2017 SUBJECTIVE: Juan Musa is in no distress. He is nonverbal. OBJECTIVE: VITAL SIGNS: He is afebrile, heart rate 92, respiratory rate 17, oximetry is 100% on room air, blood pressure 124/52. LUNGS: Clear. HEART: Regular rhythm. ABDOMEN: Soft. LABORATORY DATA: Blood cultures are negative so far. Urine from Mireles is growing Enterococcus species from 2 days ago, amoxicillin sensitive Enterococcus. IMPRESSION AND PLAN: 1. Past cerebrovascular accident, currently living in a [facility] environment. 2. Intravascular volume depletion. 3. 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 It is unclear to me whether or not he always has a Mireles i n place, if he does, this is just bladder colonization. He is hemodynamically stable. He could be moved to a medical bed. His resuscitation status at some point needs to be addressed. I doubt he is able to adequately asses s his own thirst needs, so I suspect the majority of this is intravascular volume depletion.
[2017-07-08] MEDS: Atorvastatin Calcium 20 MG TAB PO SCH (20:22)
[2017-07-08] MEDS: Pantoprazole 40 MG VIAL IVP SCH (20:49)
[2017-07-09] MEDS: Piperacillin/Tazobactam 3.375 GM in Sodium Chloride 0.9% 100 ML IVPB SCH ×4 (02:30→21:26)
[2017-07-09] MEDS: HumaLOG 300 UNITS/3 ML VIAL SC PRN ×3 (04:48→16:57)
[2017-07-09 07:56] LABS: Anion Gap 13 mmol/L (10-20); BUN (Urea Nitrogen) 75 mg/dL (8.4-25.7); Calc. Creatinine Clearance 40 mL/min (70-130); Calcium 10.1 mg/dL (7.8-10.44); Carbon Dioxide 32 mmol/L (23-31); Chloride 123 mmol/L (98-107); Estimated GFR-MDRD 57; Glucose 401 mg/dL (83-110); Potassium 3.9 mmol/L (3.5-5.1); Sodium 164 mmol/L (136-145)
[2017-07-09 08:04] LABS: Band 4 % (5-11); Hemoglobin 11.1 g/dL (14.0-18.0); Lymphocytes 5 % (21-51); MDiff Complete? YES; Macrocytosis SLIGHT = 6-15 cells (100X) (0-5/hpf); Mean Corpuscular HGB CONC 31.1 g/dL (32.0-36.0); Mean Corpuscular Hemoglobin 29.8 pg (27.0-31.0); Mean Corpuscular Volume 95.7 fl (80.0-94.0); Mean Platelet Volume 8.2 fL (7.4-10.4); Monocytes 3 % (0-10); Neutrophil 88 % (42-75); PLT Morphology Comment Appears Increased; Platelet Count 520 thou/uL (130-400); RBC Distribution Width 14.5 % (11.5-14.5); Red Blood Cell (RBC) Count 3.74 mill/uL (4.70-6.10); White Blood Cell (WBC) Count 14.4 thou/uL (4.8-10.8)
[2017-07-09] MEDS: Finasteride 5 MG TAB PO SCH (08:58)
[2017-07-09] MEDS: Dextrose 5% in Water 1,000 ML IV SCH ×2 (08:58→16:58)
[2017-07-09] MEDS: Nystatin 500,000 UNITS/5 ML UDCUP SSW SCH ×4 (08:58→21:27)
[2017-07-09] MEDS ORDERED: Insulin Detemir 100 UNITS/ML 10 UNITS in Pre-Filled Syringe 1 EACH SC SCH (09:00)
[2017-07-09] MEDS ORDERED: Dextrose 5% in Water 1,000 ML IV SCH (09:12)
[2017-07-09] MEDS ORDERED: Insulin Detemir 100 UNITS/ML 15 UNITS in Pre-Filled Syringe 1 EACH SC SCH (11:30)
--- NOTE | 2017-07-09 12:46 | PRG ---
DATE OF SERVICE: 07/09/2017 SUBJECTIVE: Mr. Musa remains nonverbal. OBJECTIVE: VITAL SIGNS: He is afebrile, heart rate is 108 to 115, respiratory rate is in the 20s, oximetry is 1 00% on room air, blood pressure 115/46. CHEST: Mild rhonchi bilaterally. He is in no distress. He is not using accessory muscles. HEART: Regular rhythm. ABDOMEN: Soft. LABORATORY DATA: White count 14.4, hemoglobin 11.1, platelets 520. Sodium is up to 164, potassium 3.9, chloride 123, bicarbonate 32, BUN 75, creatinine 1.45. His creat inine has gone down. BUN has gone down. He was started on D5 with 50 mL an hour yesterday. This was increased to 75 mL an hour today. He pr obably needs more free water. IMPRESSION: Hyperosmolar state secondary to severe intravascular volume depletion. PLAN: Continue supportive care. His code status needs to be addressed. No critical care issues at this time. His prognosis is dismal.
[2017-07-09 14:00] LABS: Anion Gap 11 mmol/L (10-20); BUN (Urea Nitrogen) 74 mg/dL (8.4-25.7); Calc. Creatinine Clearance 37 mL/min (70-130); Calcium 9.5 mg/dL (7.8-10.44); Carbon Dioxide 32 mmol/L (23-31); Chloride 122 mmol/L (98-107); Estimated GFR-MDRD 51; Glucose 514 mg/dL (83-110); Potassium 4.1 mmol/L (3.5-5.1); Sodium 161 mmol/L (136-145)
--- NOTE | 2017-07-09 14:07 | PDOC.PN ---
- Subjective Encounter Start Date: 07/09/17 Encounter Start Time: 14:05 Subjective: pt remains unresponsive to verbal/tactile stimuli -: at bedside & care discussed in detail.she feels he is slightly better -: does respond minimally w sternal rub - Objective Resuscitation Status: Resuscitation Status DNR:Do Not Resuscitate MAR Reviewed: Yes Vital Signs & Weight: Vital Signs (12 hours) Temp Pulse Resp BP Pulse Ox 07/09/17 11:00 100.8 F H 115 H 117/48 L 98 07/09/17 08:00 97.1 F L 115 H 22 H 07/09/17 07:35 97.1 F L 115 H 28 H 115/46 L 100 07/09/17 03:00 97.7 F 108 H 20 123/58 L 100 Weight Admit Weight 146 lb 11.2 oz Weight 151 lb 7 oz I&O: 07/08/17 07/09/17 07/10/17 06:59 06:59 06:59 Intake Total 5332 3791 Output Total 2825 2350 Balance 2507 1441 Result Diagrams: 07/09/17 03:30 07/09/17 13:26 Additional Labs: Accuchecks 07/09/17 07/09/17 07/08/17 12:26 04:46 22:13 POC Glucose 467 H 314 H 461 H 07/08/17 16:32 POC Glucose 354 H Microbiology 07/06/17 10:49 Urine colon catheter Urine Culture - Final Enterococcus species 07/06/17 20:50 Venous blood - Right Arm Blood Culture - Preliminary NO GROWTH AT 48 HOURS 07/06/17 20:50 Venous blood - Left Hand Blood Culture - Preliminary NO GROWTH AT 48 HOURS 07/06/17 10:00 Venous blood - Right Hand Blood Culture - Preliminary NO GROWTH AT 48 HOURS 07/06/17 10:00 Venous blood - Left Hand Blood Culture - Preliminary NO GROWTH AT 48 HOURS Laboratory Tests 05/29/17 07/06/17 07/07/17 10:47 10:00 04:33 Sodium 144 Creatinine 1.25 3.03 H 1.62 H 07/08/17 07/09/17 03:41 03:30 Sodium 154 H 164 H* Creatinine 1.45 H 1.45 H Phys Exam - Physical Examination unresponsive HEENT: sclera anicteric dry mucosa.oral thrush Neck: no JVD Respiratory: no wheezing, no rales, no rhonchi dimineshed at bases.coarse Cardiovascular: RRR, no significant murmur Gastrointestinal: soft, positive bowel sounds PEG in place Musculoskeletal: no edema, pulses present unresponsive w known R hemiparesis Skin: no rash Dx/Plan (1) Acute metabolic encephalopathy Code(s): G93.41 - METABOLIC ENCEPHALOPATHY Status: Acute (2) CARMEN (acute kidney injury) Code(s): N17.9 - ACUTE KIDNEY FAILURE, UNSPECIFIED Status: Acute Comment: not much improvement despite IVF's, avoid nephrotoxic meds and contrast media, serial creatinine (3) Acute hypernatremia Code(s): E87.0 - HYPEROSMOLALITY AND HYPERNATREMIA Status: Acute Comment: increase D5W IVF,and increase free water replacement per PEG. serial Na+ assessments (4) Septic shock Code(s): A41.9 - SEPSIS, UNSPECIFIED ORGANISM; R65.21 - SEVERE SEPSIS WITH SEPTIC SHOCK Status: Acute Comment: Continue IVF's and monitor BP response, Cont Zosyn 3.375gm IV q6h for Enterococcus UTI, d/c Cefepime (5) Severe dehydration Code(s): E86.0 - DEHYDRATION Status: Acute Comment: Continue IVF's, start free-H2O flushes 200ml PEG tube q4h (6) UTI (urinary tract infection) due to urinary indwelling Colon catheter Code(s): T83.511A - I/I REACT D/T INDWELLING URETHRAL CATHETER, INIT; N39.0 - URINARY TRACT INFECTION, SITE NOT SPECIFIED Status: Acute Qualifiers: Indwelling urinary catheter type: indwelling urethral catheter Comment: Enterococcus in final Ucx results, Zosyn based on Ucx sensitivities, IVF's and monitor output, Colon catheter changed (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 transplanted heart: [place] heart Associated angina: without angina Qualified Code(s): I25.10 - Atherosclerotic heart disease of [place] coronary artery without angina pectoris Comment: Stable. (10) DM type 2 (diabetes mellitus, type 2) Status: Chronic Qualifiers: Diabetes mellitus terminal supervisor insulin use: with residential use Diabetes mellitus complication status: with hyperglycemia Qualified Code(s): E11.65 - Type 2 diabetes mellitus with hyperglycemia; Z79.4 - long-term (current) use of insulin; Z79.4 - long-term (current) use of insulin; Z79.4 - equipment operator intermodal yard (current ) use of insulin; Z79.4 - equipment operator intermodal yard (current) use of insulin Comment: Continue insulin regimen with SSI, detemir. Finger stick glucose Q6H (11) Dementia Code(s): F03.90 - UNSPECIFIED DEMENTIA WITHOUT BEHAVIORAL DISTURBANCE Status: Chronic Qualifiers: Dementia type: unspecified type Dementia behavioral disturbance: without behavioral disturbance Qualified Code(s): F03.90 - Unspecified dementia without behavioral disturbance (12) HTN (hypertension) Code(s): I10 - ESSENTIAL (PRIMARY) HYPERTENSION Status: Chronic Qualifiers: Hypertension type: essential hypertension Comment: Home meds on hold due to low BP - Plan plan discussed w/ family, colon catheter, continue antibiotics, PT/OT, respiratory therapy, incentive spirometry, DVT proph w/SCDs DC cefepime,cont Zosyn for Enterococcal UTI.BP still low -: sodium even higher today contributing to Encephalopathy. -: Increase free Water & D5W.monitor -: cont tube feeds.monitor lytes. -: DNR confirmed w .supportive care. poor prognosis * . Review of Systems - Review of Systems Other: unobtainble due to encephalopathy/unresponsiveness - Medications/Allergies Allergies/Adverse Reactions: Allergies Allergy/AdvReac Type Severity Reaction Status Date / Time No Known Drug Allergies Allergy Verified 01/28/15 05:05 Medications: Current Medications Hydrocodone Bitart/Acetaminophen ([place] 5/325) 1 tab PO Q4H PRN PRN Reason: Moderate Pain (4-6) Atorvastatin Calcium (Lipitor) 20 mg PO HS [facility] Last Admin: 07/08/17 20:22 Dose: 20 mg Dextrose/Water (Dextrose 50%) 25 gm SLOW IVP PRN PRN PRN Reason: Hypoglycemia Finasteride (Proscar) 5 mg PO DAILY [facility] Last Admin: 07/09/17 08:58 Dose: 5 mg Glucagon (Glucagon) 1 mg IM PRN PRN PRN Reason: Hypoglycemia Dextrose/Water (D5w) 1,000 mls @ 0 mls/hr IV .Q0M PRN; As Directed PRN Reason: Hypoglycemia Piperacillin Sod/Tazobactam (Sod 3.375 gm/ Sodium Chloride) 100 mls @ 200 mls/ hr IVPB 0200,0800,1400,2000 [facility] Last Admin: 07/09/17 13:47 Dose: 100 mls Dextrose/Water (D5w) 1,000 mls @ 75 mls/hr IV .[id number] [facility] Last Admin: 07/09/17 13:47 Dose: 1,000 mls Insulin Detemir 15 units/ (Miscellaneous Medication) 0.15 mls @ 0 mls/hr SC BID [facility] Insulin Human Lispro (Humalog) 0 units SC .MILD SLIDING SCALE PRN; Protocol PRN Reason: MILD SLIDING SCALE Last Admin: 07/09/17 13:48 Dose: 6 unit Lactulose (Lactulose) 20 gm PO DAILYPRN PRN PRN Reason: Constipation Nystatin (Mycostatin) 500,000 units SSW QID [facility] Last Admin: 07/09/17 13:47 Dose: 500,000 units Ondansetron HCl (Zofran) 4 mg IVP Q6H PRN PRN Reason: Nausea/Vomiting Pantoprazole Sodium (Protonix) 40 mg IVP 2100 [facility] Last Admin: 07/08/17 20:49 Dose: 40 mg
[2017-07-09] MEDS: Atorvastatin Calcium 20 MG TAB PO SCH (21:26)
[2017-07-09] MEDS: Pantoprazole 40 MG VIAL IVP SCH (21:27)
[2017-07-09] MEDS: Insulin Detemir 100 UNITS/ML 15 UNITS in Pre-Filled Syringe 1 EACH SC SCH (21:34)
[2017-07-10] MEDS: HumaLOG 300 UNITS/3 ML VIAL SC PRN ×4 (00:52→18:15)
[2017-07-10] MEDS: Dextrose 5% in Water 1,000 ML IV SCH ×3 (04:18→17:30)
[2017-07-10] MEDS: Piperacillin/Tazobactam 3.375 GM in Sodium Chloride 0.9% 100 ML IVPB SCH ×4 (04:18→20:33)
[2017-07-10 05:41] LABS: Anion Gap 16 mmol/L (10-20); BUN (Urea Nitrogen) 68 mg/dL (8.4-25.7); Calc. Creatinine Clearance 42 mL/min (70-130); Calcium 9.8 mg/dL (7.8-10.44); Carbon Dioxide 30 mmol/L (23-31); Chloride 122 mmol/L (98-107); Estimated GFR-MDRD 60; Glucose 464 mg/dL (83-110); Potassium 4.3 mmol/L (3.5-5.1); Sodium 164 mmol/L (136-145)
[2017-07-10] MEDS: Finasteride 5 MG TAB PO SCH (08:41)
[2017-07-10] MEDS: Nystatin 500,000 UNITS/5 ML UDCUP SSW SCH ×4 (08:41→20:35)
[2017-07-10] MEDS ORDERED: Insulin Detemir 100 UNITS/ML 15 UNITS in Pre-Filled Syringe 1 EACH SC SCH (09:00)
[2017-07-10] MEDS: Insulin Detemir 100 UNITS/ML 15 UNITS in Pre-Filled Syringe 1 EACH SC SCH (09:21)
[2017-07-10] MEDS ORDERED: Atenolol 50 MG TAB PER TUBE SCH (15:00)
--- NOTE | 2017-07-10 15:34 | PDOC.PN ---
- Subjective Encounter Start Date: 07/10/17 Encounter Start Time: 15:32 Subjective: remains unchanged.no movement,no improvement in mentation - Objective Resuscitation Status: Resuscitation Status DNR:Do Not Resuscitate MAR Reviewed: Yes Vital Signs & Weight: Vital Signs (12 hours) Temp Pulse Resp BP Pulse Ox 07/10/17 15:11 98.9 F 115 H 123/64 100 07/10/17 14:58 115 H 07/10/17 11:40 97.6 F 120 H 152/64 H 98 07/10/17 08:00 97.6 F 117 H 28 H 07/10/17 07:55 100 07/10/17 07:10 97.6 F 117 H 28 H 144/67 H 99 07/10/17 04:00 98.2 F 115 H 18 122/61 99 Weight Admit Weight 146 lb 11.2 oz Weight 151 lb 3.2 oz I&O: 07/09/17 07/10/17 07/11/17 06:59 06:59 06:59 Intake Total 3791 3634 966 Output Total 2350 3050 475 Balance 1441 584 491 Result Diagrams: 07/09/17 03:30 07/10/17 04:16 Additional Labs: Accuchecks 07/10/17 07/10/17 07/10/17 11:51 06:25 00:51 POC Glucose 446 H 330 H 532 H 07/09/17 07/09/17 18:15 16:41 POC Glucose 486 H 470 H Laboratory Tests 07/07/17 07/08/17 07/09/17 04:33 03:41 03:30 Sodium 144 154 H 164 H* Creatinine 1.62 H 1.45 H 1.45 H 07/09/17 07/10/17 13:26 04:16 Sodium 161 H* 164 H* Creatinine 1.58 H 1.39 H Phys Exam - Physical Examination Constitutional: NAD does not respond to verbal stimuli.withdraws to pain dry ,oral thrush Neck: no JVD Respiratory: no wheezing, no rales, no rhonchi Cardiovascular: RRR, no significant murmur Gastrointestinal: soft, no distention Musculoskeletal: no edema, pulses present Dx/Plan (1) Acute metabolic encephalopathy Code(s): G93.41 - METABOLIC ENCEPHALOPATHY Status: Acute (2) CARMEN (acute kidney injury) Code(s): N17.9 - ACUTE KIDNEY FAILURE, UNSPECIFIED Status: Acute Comment: not much improvement despite IVF's, avoid nephrotoxic meds and contrast media, serial creatinine (3) Acute hypernatremia Code(s): E87.0 - HYPEROSMOLALITY AND HYPERNATREMIA Status: Acute Comment: increase D5W IVF,and increase free water replacement per PEG. serial Na+ assessments (4) Septic shock Code(s): A41.9 - SEPSIS, UNSPECIFIED ORGANISM; R65.21 - SEVERE SEPSIS WITH SEPTIC SHOCK Status: Acute Comment: Continue IVF's and monitor BP response, Cont Zosyn 3.375gm IV q6h for Enterococcus UTI, d/c Cefepime (5) Severe dehydration Code(s): E86.0 - DEHYDRATION Status: Acute Comment: Continue IVF's, start free-H2O flushes 200ml PEG tube q4h (6) UTI (urinary tract infection) due to urinary indwelling Mireles catheter Code(s): T83.511A - I/I REACT D/T INDWELLING URETHRAL CATHETER, INIT; N39.0 - URINARY TRACT INFECTION, SITE NOT SPECIFIED Status: Acute Qualifiers: Indwelling urinary catheter type: indwelling urethral catheter Comment: Enterococcus in final Ucx results, Zosyn based on Ucx sensitivities, IVF's and monitor output, Mireles catheter changed (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 transplanted heart: [place] heart Associated angina: without angina Qualified Code(s): I25.10 - Atherosclerotic heart disease of [place] coronary artery without angina pectoris Comment: Stable. (10) DM type 2 (diabetes mellitus, type 2) Status: Chronic Qualifiers: Diabetes mellitus group home insulin use: with group home use Diabetes mellitus complication status: with hyperglycemia Qualified Code(s): E11.65 - Type 2 diabetes mellitus with hyperglycemia; Z79.4 - superintendent container terminal (current) use of insulin; Z79.4 - superintendent container terminal (current) use of insulin; Z79.4 - superintendent container terminal (current ) use of insulin; Z79.4 - USP (current) use of insulin Comment: Continue insulin regimen with SSI, detemir. Finger stick glucose Q6H (11) Dementia Code(s): F03.90 - UNSPECIFIED DEMENTIA WITHOUT BEHAVIORAL DISTURBANCE Status: Chronic Qualifiers: Dementia type: unspecified type Dementia behavioral disturbance: without behavioral disturbance Qualified Code(s): F03.90 - Unspecified dementia without behavioral disturbance (12) HTN (hypertension) Code(s): I10 - ESSENTIAL (PRIMARY) HYPERTENSION Status: Chronic Qualifiers: Hypertension type: essential hypertension Comment: Home meds on hold due to low BP - Plan continue antibiotics, PT/OT, DVT proph w/SCDs Sodium still high.increased free H2O flushes & D5W drip.nephrology followin -: Poor prognosis.PCT following -: will likley need hospice, -: BP improved & actually higher today.will restart Home meds w caution -: BS very high.Increase levemir again today & increase ISS to aggressive * . Review of Systems - Review of Systems Other: can not be obtained due to encepahlopathy - Medications/Allergies Allergies/Adverse Reactions: Allergies Allergy/AdvReac Type Severity Reaction Status Date / Time No Known Drug Allergies Allergy Verified 01/28/15 05:05 Medications: Current Medications Hydrocodone Bitart/Acetaminophen ([place] 5/325) 1 tab PO Q4H PRN PRN Reason: Moderate Pain (4-6) Atenolol (Tenormin) 50 mg PER TUBE NOW [facility] Stop: 07/10/17 17:00 Last Admin: 07/10/17 14:58 Dose: 50 mg Atorvastatin Calcium (Lipitor) 20 mg PO HS [facility] Last Admin: 07/09/17 21:26 Dose: 20 mg Dextrose/Water (Dextrose 50%) 25 gm SLOW IVP PRN PRN PRN Reason: Hypoglycemia Finasteride (Proscar) 5 mg PO DAILY [facility] Last Admin: 07/10/17 08:41 Dose: 5 mg Glucagon (Glucagon) 1 mg IM PRN PRN PRN Reason: Hypoglycemia Dextrose/Water (D5w) 1,000 mls @ 0 mls/hr IV .Q0M PRN; As Directed PRN Reason: Hypoglycemia Piperacillin Sod/Tazobactam (Sod 3.375 gm/ Sodium Chloride) 100 mls @ 200 mls/ hr IVPB 0200,0800,1400,2000 [facility] Last Admin: 07/10/17 13:32 Dose: 100 mls Dextrose/Water (D5w) 1,000 mls @ 125 mls/hr IV .Q8H [facility] Last Admin: 07/10/17 09:20 Dose: 1,000 mls Insulin Detemir 20 units/ (Miscellaneous Medication) 0.2 mls @ 0 mls/hr SC HS [facility] Insulin Detemir 20 units/ (Miscellaneous Medication) 0.2 mls @ 0 mls/hr SC QAM [facility] Insulin Human Lispro (Humalog) 0 units SC .AGGRESSIVE SLIDING PRN; Protocol PRN Reason: AGGRESSIVE SLIDING SCALE Lactulose (Lactulose) 20 gm PO DAILYPRN PRN PRN Reason: Constipation Nystatin (Mycostatin) 500,000 units SSW QID [facility] Last Admin: 07/10/17 13:32 Dose: 500,000 units Ondansetron HCl (Zofran) 4 mg IVP Q6H PRN PRN Reason: Nausea/Vomiting Pantoprazole Sodium (Protonix) 40 mg IVP 2100 [facility] Last Admin: 07/09/17 21:27 Dose: 40 mg Sodium Chloride (Flush - Normal Saline) 10 ml IVF Q12HR [facility] Last Admin: 07/10/17 09:20 Dose: 10 ml Sodium Chloride (Flush - Normal Saline) 10 ml IVF PRN PRN PRN Reason: Saline Flush
[2017-07-10] MEDS: Atorvastatin Calcium 20 MG TAB PO SCH (20:33)
[2017-07-10] MEDS: Atenolol 50 MG TAB PER TUBE SCH (20:34)
[2017-07-10] MEDS: Pantoprazole 40 MG VIAL IVP SCH (20:35)
[2017-07-10] MEDS ORDERED: Insulin Detemir 100 UNITS/ML 20 UNITS in Pre-Filled Syringe 1 EACH SC SCH (21:00)
--- NOTE | 2017-07-10 21:54 | PRG ---
DATE OF SERVICE: 07/10/2017 SUBJECTIVE: Juan Musa remains poorly responsive. OBJECTIVE: VITAL SIGNS: He is afebrile, heart rate is 99, blood pressure 90/56, oxygen saturation 98% on room a ir. He is handling his secretions. LUNGS: Remarkable for mainly upper airway noises. Lungs are otherwise clear. HEART: Regular rhythm, no S3. ABDOMEN: Soft, without guarding. EXTREMITIES: Without asymmetry. LABORATORY DATA: White count is 14.4, hemoglobin 11.1, platelets 520 yesterday. Sodium 164, potassium 4.3, chloride 122, bicarbonate 30, BUN 68, creatinine 1.39. Intake and output is positive 584. I suppose there is a chance that he has some degree of diabetes insipidus making him hypernatremic. His D5 has been increased, but it might be reasonable to try DDAVP if he fails to improve with increa sed free water in the next 24 hours.
[2017-07-11] MEDS: HumaLOG 300 UNITS/3 ML VIAL SC PRN ×3 (00:08→12:42)
[2017-07-11] MEDS: Piperacillin/Tazobactam 3.375 GM in Sodium Chloride 0.9% 100 ML IVPB SCH ×4 (02:17→20:38)
[2017-07-11] MEDS: Dextrose 5% in Water 1,000 ML IV SCH ×3 (02:18→16:56)
[2017-07-11 04:59] LABS: Anion Gap 12 mmol/L (10-20); BUN (Urea Nitrogen) 55 mg/dL (8.4-25.7); Calc. Creatinine Clearance 53 mL/min (70-130); Calcium 9.2 mg/dL (7.8-10.44); Carbon Dioxide 31 mmol/L (23-31); Chloride 118 mmol/L (98-107); Estimated GFR-MDRD 78; Glucose 308 mg/dL (83-110); Potassium 3.7 mmol/L (3.5-5.1); Sodium 157 mmol/L (136-145)
[2017-07-11] MEDS ORDERED: Insulin Detemir 100 UNITS/ML 20 UNITS in Pre-Filled Syringe 1 EACH SC SCH (09:00)
[2017-07-11] MEDS: Finasteride 5 MG TAB PO SCH (09:17)
[2017-07-11] MEDS: Nystatin 500,000 UNITS/5 ML UDCUP SSW SCH ×4 (09:17→20:39)
[2017-07-11] MEDS: Atenolol 50 MG TAB PER TUBE SCH ×2 (09:17→20:39)
[2017-07-11] MEDS: Amlodipine 10 MG TAB PO SCH (09:17)
[2017-07-11] MEDS: Insulin Detemir 100 UNITS/ML 25 UNITS in Pre-Filled Syringe 1 EACH SC SCH ×2 (12:41→20:38)
--- NOTE | 2017-07-11 13:37 | PDOC.PN ---
- Subjective Encounter Start Date: 07/11/17 Encounter Start Time: 13:35 Subjective: condition remains unchanged -: no acute events - Objective Resuscitation Status: Resuscitation Status DNR:Do Not Resuscitate MAR Reviewed: Yes Vital Signs & Weight: Vital Signs (12 hours) Temp Pulse Resp BP BP Pulse Ox 07/11/17 12:00 98.2 F 91 22 H 92/43 L 97 07/11/17 09:17 90 117/50 L 07/11/17 08:00 99.6 F 90 16 98 07/11/17 07:55 99.6 F 90 24 H 130/51 L 100 07/11/17 04:00 97.4 F L 88 16 123/53 L 100 Weight Admit Weight 146 lb 11.2 oz Weight 156 lb 7 oz I&O: 07/10/17 07/11/17 07/12/17 06:59 06:59 06:59 Intake Total 3634 5610 Output Total 3050 2400 Balance 584 3210 Result Diagrams: 07/09/17 03:30 07/11/17 03:47 Additional Labs: Accuchecks 07/11/17 07/11/17 07/11/17 12:10 05:55 00:06 POC Glucose 206 H 335 H 403 H 07/10/17 18:13 POC Glucose 319 H Microbiology 07/06/17 10:49 Urine colon catheter Urine Culture - Final Enterococcus species 07/06/17 20:50 Venous blood - Right Arm Blood Culture - Preliminary NO GROWTH AT 48 HOURS 07/06/17 20:50 Venous blood - Left Hand Blood Culture - Preliminary NO GROWTH AT 48 HOURS 07/06/17 10:00 Venous blood - Right Hand Blood Culture - Preliminary NO GROWTH AT 48 HOURS 07/06/17 10:00 Venous blood - Left Hand Blood Culture - Preliminary NO GROWTH AT 48 HOURS Laboratory Tests 07/07/17 07/08/17 07/09/17 04:33 03:41 03:30 Sodium 144 154 H 164 H* Creatinine 1.62 H 1.45 H 1.45 H 07/09/17 07/10/17 07/11/17 13:26 04:16 03:47 Sodium 161 H* 164 H* 157 H Creatinine 1.58 H 1.39 H 1.10 Phys Exam - Physical Examination Constitutional: NAD does not respond to verabl or tactile stimulus,withdraws to pain HEENT: moist MMs, sclera anicteric Neck: no JVD Respiratory: no wheezing, no rales, no rhonchi Cardiovascular: RRR, no significant murmur Gastrointestinal: soft, no distention Musculoskeletal: no edema, pulses present unable to determine Dx/Plan (1) Acute metabolic encephalopathy Code(s): G93.41 - METABOLIC ENCEPHALOPATHY Status: Acute Comment: likely multifactorial.UTI and Hypernatremia (2) CARMEN (acute kidney injury) Code(s): N17.9 - ACUTE KIDNEY FAILURE, UNSPECIFIED Status: Acute Comment: Improved. avoid nephrotoxic meds and contrast media, serial creatinine (3) Acute hypernatremia Code(s): E87.0 - HYPEROSMOLALITY AND HYPERNATREMIA Status: Acute Comment: increase D5W IVF,and increase free water replacement per PEG. serial Na+ assessments (4) Septic shock Code(s): A41.9 - SEPSIS, UNSPECIFIED ORGANISM; R65.21 - SEVERE SEPSIS WITH SEPTIC SHOCK Status: Acute Comment: Continue IVF's and monitor BP response, Cont Zosyn 3.375gm IV q6h for Enterococcus UTI, d/c Cefepime (5) Severe dehydration Code(s): E86.0 - DEHYDRATION Status: Acute Comment: Continue IVF's, start free-H2O flushes 200ml PEG tube q4h (6) UTI (urinary tract infection) due to urinary indwelling Colon catheter Code(s): T83.511A - I/I REACT D/T INDWELLING URETHRAL CATHETER, INIT; N39.0 - URINARY TRACT INFECTION, SITE NOT SPECIFIED Status: Acute Qualifiers: Indwelling urinary catheter type: indwelling urethral catheter Comment: Enterococcus in final Ucx results, Zosyn based on Ucx sensitivities, IVF's and monitor output, Colon catheter changed (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 transplanted heart: [place] heart Associated angina: without angina Qualified Code(s): I25.10 - Atherosclerotic heart disease of [place] coronary artery without angina pectoris Comment: Stable. (10) DM type 2 (diabetes mellitus, type 2) Status: Chronic Qualifiers: Diabetes mellitus remote computer terminal operator insulin use: with assisted use Diabetes mellitus complication status: with hyperglycemia Qualified Code(s): E11.65 - Type 2 diabetes mellitus with hyperglycemia; Z79.4 - moth exterminator (current) use of insulin; Z79.4 - moth exterminator (current) use of insulin; Z79.4 - moth exterminator (current ) use of insulin; Z79.4 - moth exterminator (current) use of insulin Comment: Continue insulin regimen with SSI, detemir. Finger stick glucose Q6H (11) Dementia Code(s): F03.90 - UNSPECIFIED DEMENTIA WITHOUT BEHAVIORAL DISTURBANCE Status: Chronic Qualifiers: Dementia type: unspecified type Dementia behavioral disturbance: without behavioral disturbance Qualified Code(s): F03.90 - Unspecified dementia without behavioral disturbance (12) HTN (hypertension) Code(s): I10 - ESSENTIAL (PRIMARY) HYPERTENSION Status: Chronic Qualifiers: Hypertension type: essential hypertension Comment: Home meds on hold due to low BP - Plan PT/OT, DVT proph w/SCDs sodium somewhat beter.nephrology follwoing.cont D5W & monitor -: Blood sugar still high.SSI chnaged to aggressive yesterday. -: will further increase levemir today and monitor. -: cont tube feeds.monitor lytes -: poor prognosis .[facility] when sodium improves * . Review of Systems - Review of Systems Other: unobtainable due to encephalopathy.Baseline unknown - Medications/Allergies Allergies/Adverse Reactions: Allergies Allergy/AdvReac Type Severity Reaction Status Date / Time No Known Drug Allergies Allergy Verified 01/28/15 05:05 Medications: Current Medications Hydrocodone Bitart/Acetaminophen ([place] 5/325) 1 tab PO Q4H PRN PRN Reason: Moderate Pain (4-6) Amlodipine Besylate (Norvasc) 10 mg PO DAILY [facility] Last Admin: 07/11/17 09:17 Dose: 10 mg Atenolol (Tenormin) 50 mg PER TUBE BID [facility] Last Admin: 07/11/17 09:17 Dose: 50 mg Atorvastatin Calcium (Lipitor) 20 mg PO HS [facility] Last Admin: 07/10/17 20:33 Dose: 20 mg Dextrose/Water (Dextrose 50%) 25 gm SLOW IVP PRN PRN PRN Reason: Hypoglycemia Finasteride (Proscar) 5 mg PO DAILY [facility] Last Admin: 07/11/17 09:17 Dose: 5 mg Glucagon (Glucagon) 1 mg IM PRN PRN PRN Reason: Hypoglycemia Dextrose/Water (D5w) 1,000 mls @ 0 mls/hr IV .Q0M PRN; As Directed PRN Reason: Hypoglycemia Piperacillin Sod/Tazobactam (Sod 3.375 gm/ Sodium Chloride) 100 mls @ 200 mls/ hr IVPB 0200,0800,1400,2000 [facility] Last Admin: 07/11/17 12:42 Dose: 100 mls Dextrose/Water (D5w) 1,000 mls @ 125 mls/hr IV .Q8H [facility] Last Admin: 07/11/17 09:18 Dose: 1,000 mls Insulin Detemir 25 units/ (Miscellaneous Medication) 0.25 mls @ 0 mls/hr [facility] PR[facility] Reason: As Directed Last Admin: 07/11/17 12:41 Dose: 0.25 mls Insulin Detemir 25 units/ (Miscellaneous Medication) 0.25 mls @ 0 mls/hr SC [facility] PRN Reason: As Directed Insulin Human Lispro (Humalog) 0 units SC .AGGRESSIVE SLIDING PRN; Protocol PRN Reason: AGGRESSIVE SLIDING SCALE Last Admin: 07/11/17 12:42 Dose: 6 unit Lactulose (Lactulose) 20 gm PO DAILYPRN PRN PRN Reason: Constipation Nystatin (Mycostatin) 500,000 units SSW QID [facility] Last Admin: 07/11/17 12:42 Dose: 500,000 units Ondansetron HCl (Zofran) 4 mg IVP Q6H PRN PRN Reason: Nausea/Vomiting Pantoprazole Sodium (Protonix) 40 mg IVP 2100 [facility] Last Admin: 07/10/17 20:35 Dose: 40 mg Sodium Chloride (Flush - Normal Saline) 10 ml IVF Q12HR [facility] Last Admin: 07/11/17 09:18 Dose: 10 ml Sodium Chloride (Flush - Normal Saline) 10 ml IVF PRN PRN PRN Reason: Saline Flush
[2017-07-11] MEDS: Pantoprazole 40 MG VIAL IVP SCH (20:38)
[2017-07-11] MEDS: Atorvastatin Calcium 20 MG TAB PO SCH (20:39)
--- NOTE | 2017-07-11 20:55 | PRG ---
DATE OF SERVICE: 07/11/2017 SUBJECTIVE: Mr. Musa clinically unchanged. OBJECTIVE: VITAL SIGNS: He is afebrile, heart rate 100, respiratory rate 16, oximetry is 94% on room air, blood pressure 97/53. LUNGS: Clear. HEART: Regular rhythm. ABDOMEN: Soft. LABORATORY DATA: White count is 14.4, hemoglobin 11.1, platelets 520,000. Sodium is down to 157, potassium 3.7, chloride 118, bicarbonate 31, BUN 55, creatinine 1.1. IMPRESSION: Hyperosmolar state? component of diabetes insipidus. PLAN: Continue free water hydration. His prognosis is dismal for any type of long-term survival muc h less recovery. Inpatient hospice would be a viable option in my opinion for him. He is stable to move out of the intermediate care unit to a medical bed. He certainly can handle his care needs in my opinion. He will likely have a chronic indwelling Mireles catheter, so fci treatment with isolated in his bladder is unlikely to do any more than create antibiotic resistant pathogens. Antibiotics can be di scontinued in my opinion.
[2017-07-12] MEDS: Cefepime 2 GM, Syringe 2.5 ML in Sodium Chloride 0.9% 10 ML SLOW IVP SCH (01:25)
[2017-07-12] MEDS: Piperacillin/Tazobactam 3.375 GM in Sodium Chloride 0.9% 100 ML IVPB SCH (02:57)
[2017-07-12] MEDS: Dextrose 5% in Water 1,000 ML IV SCH ×3 (03:14→16:48)
[2017-07-12 06:28] LABS: #Eosinphils 0.2 thou/uL (0.0-0.7); #Lymphocytes 1.9 thou/uL (1.20-3.40); #Monocytes 0.5 thou/uL (0.11-0.59); #Neutrophils 12.7 thou/uL (1.40-6.50); %Basophils 0.2 % (0.0-1.0); %Eosinophils 1.4 % (0.0-10.0); %Lymphocytes 12.5 % (21.0-51.0); %Monocytes 3.4 % (0.0-10.0); %Neutrophils 82.7 % (42.0-75.0); Hemoglobin 10.9 g/dL (14.0-18.0); Mean Corpuscular Hemoglobin 29.5 pg (27.0-31.0); Mean Platelet Volume 7.6 fL (7.4-10.4); Platelet Count 355 thou/uL (130-400); RBC Distribution Width 13.8 % (11.5-14.5); Red Blood Cell (RBC) Count 3.71 mill/uL (4.70-6.10); White Blood Cell (WBC) Count 15.4 thou/uL (4.8-10.8)
[2017-07-12 06:40] LABS: Anion Gap 12 mmol/L (10-20); BUN (Urea Nitrogen) 43 mg/dL (8.4-25.7); Calc. Creatinine Clearance 58 mL/min (70-130); Carbon Dioxide 31 mmol/L (23-31); Chloride 114 mmol/L (98-107); Estimated GFR-MDRD 84; Glucose 282 mg/dL (83-110); Potassium 3.9 mmol/L (3.5-5.1); Sodium 153 mmol/L (136-145)
[2017-07-12] MEDS: Amlodipine 10 MG TAB PO SCH (09:03)
[2017-07-12] MEDS: Atenolol 50 MG TAB PER TUBE SCH ×2 (09:03→20:22)
[2017-07-12] MEDS: Finasteride 5 MG TAB PO SCH (09:05)
[2017-07-12] MEDS: Nystatin 500,000 UNITS/5 ML UDCUP SSW SCH ×4 (09:06→20:22)
[2017-07-12] MEDS: Insulin Detemir 100 UNITS/ML 25 UNITS in Pre-Filled Syringe 1 EACH SC SCH ×2 (09:10→20:26)
--- NOTE | 2017-07-12 12:05 | PDOC.PN ---
- Subjective Encounter Start Date: 07/12/17 Encounter Start Time: 12:03 Subjective: no changes.moved to medical bed -: no Overnight events - Objective Resuscitation Status: Resuscitation Status DNR:Do Not Resuscitate MAR Reviewed: Yes Vital Signs & Weight: Vital Signs (12 hours) Temp Pulse Resp BP BP Pulse Ox 07/12/17 11:19 98.3 F 91 20 138/71 92 L 07/12/17 09:03 97 154/74 H 07/12/17 07:43 98.4 F 96 26 H 154/74 H 91 L 07/12/17 04:00 99.5 F 79 16 131/62 94 L Weight Admit Weight 146 lb 11.2 oz Weight 156 lb 7 oz I&O: 07/11/17 07/12/17 07/13/17 06:59 06:59 06:59 Intake Total 5610 1977 Output Total 2400 1300 Balance 3210 677 Result Diagrams: 07/12/17 05:59 07/12/17 05:59 Additional Labs: Accuchecks 07/12/17 07/12/17 07/11/17 11:21 04:45 20:33 POC Glucose 335 H 277 H 231 H 07/11/17 12:10 POC Glucose 206 H Microbiology 07/06/17 20:50 Venous blood - Right Arm Blood Culture - Final NO GROWTH IN 5 DAYS 07/06/17 20:50 Venous blood - Left Hand Blood Culture - Final NO GROWTH IN 5 DAYS 07/06/17 10:49 Urine colon catheter Urine Culture - Final Enterococcus species 07/06/17 10:00 Venous blood - Right Hand Blood Culture - Final NO GROWTH IN 5 DAYS 07/06/17 10:00 Venous blood - Left Hand Blood Culture - Final NO GROWTH IN 5 DAYS Laboratory Tests 07/07/17 07/08/17 07/09/17 04:33 03:41 03:30 Sodium 144 154 H 164 H* 07/09/17 07/10/17 07/11/17 13:26 04:16 03:47 Sodium 161 H* 164 H* 157 H 07/12/17 05:59 Sodium 153 H Phys Exam - Physical Examination Constitutional: NAD remains largley somnolent and unresponsive,stable HEENT: moist MMs, sclera anicteric oral thrush Neck: no JVD Respiratory: no wheezing, no rales, no rhonchi Cardiovascular: RRR, no significant murmur Gastrointestinal: soft, no distention, positive bowel sounds Musculoskeletal: no edema, pulses present unrespnsive to verbal /tactile stimuli Dx/Plan (1) Acute metabolic encephalopathy Code(s): G93.41 - METABOLIC ENCEPHALOPATHY Status: Acute Comment: likely multifactorial.UTI and Hypernatremia (2) CARMEN (acute kidney injury) Code(s): N17.9 - ACUTE KIDNEY FAILURE, UNSPECIFIED Status: Acute Comment: Improved. avoid nephrotoxic meds and contrast media, serial creatinine (3) Acute hypernatremia Code(s): E87.0 - HYPEROSMOLALITY AND HYPERNATREMIA Status: Acute Comment: increase D5W IVF,and increase free water replacement per PEG. serial Na+ assessments (4) Septic shock Code(s): A41.9 - SEPSIS, UNSPECIFIED ORGANISM; R65.21 - SEVERE SEPSIS WITH SEPTIC SHOCK Status: Acute Comment: Continue IVF's and monitor BP response, Cont Zosyn 3.375gm IV q6h for Enterococcus UTI, d/c Cefepime (5) Severe dehydration Code(s): E86.0 - DEHYDRATION Status: Acute Comment: Continue IVF's, start free-H2O flushes 200ml PEG tube q4h (6) UTI (urinary tract infection) due to urinary indwelling Colon catheter Code(s): T83.511A - I/I REACT D/T INDWELLING URETHRAL CATHETER, INIT; N39.0 - URINARY TRACT INFECTION, SITE NOT SPECIFIED Status: Acute Qualifiers: Indwelling urinary catheter type: indwelling urethral catheter Comment: Enterococcus in final Ucx results, Zosyn based on Ucx sensitivities, IVF's and monitor output, Colon catheter changed (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 transplanted heart: [place] heart Associated angina: without angina Qualified Code(s): I25.10 - Atherosclerotic heart disease of [place] coronary artery without angina pectoris Comment: Stable. (10) DM type 2 (diabetes mellitus, type 2) Status: Chronic Qualifiers: Diabetes mellitus long term care pharmacist insulin use: with skilled nursing use Diabetes mellitus complication status: with hyperglycemia Qualified Code(s): E11.65 - Type 2 diabetes mellitus with hyperglycemia; Z79.4 - intermediate (current) use of insulin; Z79.4 - oil heaterman (current) use of insulin; Z79.4 - intermediate (current ) use of insulin; Z79.4 - intermediate (current) use of insulin Comment: Continue insulin regimen with SSI, detemir. Finger stick glucose Q6H (11) Dementia Code(s): F03.90 - UNSPECIFIED DEMENTIA WITHOUT BEHAVIORAL DISTURBANCE Status: Chronic Qualifiers: Dementia type: unspecified type Dementia behavioral disturbance: without behavioral disturbance Qualified Code(s): F03.90 - Unspecified dementia without behavioral disturbance (12) HTN (hypertension) Code(s): I10 - ESSENTIAL (PRIMARY) HYPERTENSION Status: Chronic Qualifiers: Hypertension type: essential hypertension Qualified Code(s): I10 - Essential (primary) hypertension Comment: Home meds on hold due to low BP - Plan sodium better.cont D5W and free water flushes -: cont TF and supportive care -: add Diflucan as pt not able to do Nystatin SSW -: k[facility] hospice soon .PCT to follow -: am labs.stop ABX per [facility] recs * . Review of Systems - Review of Systems Other: unobtainable due to encephalopathy and dementia - Medications/Allergies Allergies/Adverse Reactions: Allergies Allergy/AdvReac Type Severity Reaction Status Date / Time No Known Drug Allergies Allergy Verified 01/28/15 05:05 Medications: Current Medications Hydrocodone Bitart/Acetaminophen ([place] 5/325) 1 tab PO Q4H PRN PRN Reason: Moderate Pain (4-6) Amlodipine Besylate (Norvasc) 10 mg PO DAILY [facility] Last Admin: 07/12/17 09:03 Dose: 10 mg Atenolol (Tenormin) 50 mg PER TUBE BID [facility] Last Admin: 07/12/17 09:03 Dose: 50 mg Atorvastatin Calcium (Lipitor) 20 mg PO HS [facility] Last Admin: 07/11/17 20:39 Dose: 20 mg Dextrose/Water (Dextrose 50%) 25 gm SLOW IVP PRN PRN PRN Reason: Hypoglycemia Finasteride (Proscar) 5 mg PO DAILY [facility] Last Admin: 07/12/17 09:05 Dose: 5 mg Glucagon (Glucagon) 1 mg IM PRN PRN PRN Reason: Hypoglycemia Dextrose/Water (D5w) 1,000 mls @ 0 mls/hr IV .Q0M PRN; As Directed PRN Reason: Hypoglycemia Dextrose/Water (D5w) 1,000 mls @ 125 mls/hr IV .Q8H [facility] Last Admin: 07/12/17 09:29 Dose: Not Given Insulin Detemir 25 units/ (Miscellaneous Medication) 0.25 mls @ 0 mls/hr [facility] Reason: As Directed Last Admin: 07/12/17 09:10 Dose: 0.25 mls Insulin Detemir 25 units/ (Miscellaneous Medication) 0.25 mls @ 0 mls/hr SC [facility] PRN Reason: As Directed Last Admin: 07/11/17 20:38 Dose: 0.25 mls Insulin Human Lispro (Humalog) 0 units SC .AGGRESSIVE SLIDING PRN; Protocol PRN Reason: AGGRESSIVE SLIDING SCALE Last Admin: 07/11/17 12:42 Dose: 6 unit Lactulose (Lactulose) 20 gm PO DAILYPRN PRN PRN Reason: Constipation Nystatin (Mycostatin) 500,000 units SSW QID [facility] Last Admin: 07/12/17 09:06 Dose: Not Given Ondansetron HCl (Zofran) 4 mg IVP Q6H PRN PRN Reason: Nausea/Vomiting Pantoprazole Sodium (Protonix) 40 mg IVP 2100 [facility] Last Admin: 07/11/17 20:38 Dose: 40 mg Sodium Chloride (Flush - Normal Saline) 10 ml IVF Q12HR [facility] Last Admin: 07/12/17 09:25 Dose: Not Given Sodium Chloride (Flush - Normal Saline) 10 ml IVF PRN PRN PRN Reason: Saline Flush
[2017-07-12] MEDS: HumaLOG 300 UNITS/3 ML VIAL SC PRN ×3 (13:05→20:26)
--- NOTE | 2017-07-12 15:07 | PRG ---
DATE OF SERVICE: 07/12/2017 SUBJECTIVE: Mr. Musa is afebrile, heart rate is 71, blood pressure is 154/74, respiratory rate is 2 0, oximetry 92 on room air, and continues to be able to handle his secretions. There is no acute tanner nge. LABORATORY DATA: White count 15.4, hemoglobin 10.9, and platelets 355. Sodium is down to 153, potassium 3.9, chloride 114, bicarb 31, BUN 43, creatinine 1.03. IMPRESSION: Hyperosmolar state, slowly improving with free water hydration. PLAN: Continue support with placement is the next step.
[2017-07-12] MEDS: Pantoprazole 40 MG VIAL IVP SCH (20:25)
[2017-07-12] MEDS: Atorvastatin Calcium 20 MG TAB PO SCH (20:26)
[2017-07-13] MEDS: Dextrose 5% in Water 1,000 ML IV SCH ×4 (01:05→18:16)
[2017-07-13 05:38] LABS: Anion Gap 11 mmol/L (10-20); BUN (Urea Nitrogen) 36 mg/dL (8.4-25.7); Calc. Creatinine Clearance 75 mL/min (70-130); Calcium 8.7 mg/dL (7.8-10.44); Carbon Dioxide 31 mmol/L (23-31); Chloride 110 mmol/L (98-107); Estimated GFR-MDRD Greater than 90; Glucose 82 mg/dL (83-110); Potassium 3.7 mmol/L (3.5-5.1); Sodium 148 mmol/L (136-145)
[2017-07-13] MEDS: Amlodipine 10 MG TAB PO SCH (10:13)
[2017-07-13] MEDS: Atenolol 50 MG TAB PER TUBE SCH ×2 (10:14→22:20)
[2017-07-13] MEDS: Finasteride 5 MG TAB PO SCH (10:15)
[2017-07-13] MEDS: Insulin Detemir 100 UNITS/ML 25 UNITS in Pre-Filled Syringe 1 EACH SC SCH ×2 (10:15→21:20)
[2017-07-13] MEDS: Nystatin 500,000 UNITS/5 ML UDCUP SSW SCH ×4 (10:16→21:20)
[2017-07-13 12:15] VITALS: BMI 23.8
[2017-07-13] MEDS: HumaLOG 300 UNITS/3 ML VIAL SC PRN ×2 (13:11→18:36)
[2017-07-13] MEDS ORDERED: Fluconazole 40 mg/ml Oral Suspension PER TUBE SCH ×2 (15:00→15:30)
[2017-07-13] MEDS ORDERED: Scopolamine 1.5 mg/72 hour Patch TOP SCH (16:15)
[2017-07-13] MEDS ORDERED: Furosemide 20 MG/2 ML VIAL SLOW IVP SCH (16:30)
--- NOTE | 2017-07-13 16:30 | PDOC.PN ---
- Subjective Encounter Start Date: 07/13/17 Encounter Start Time: 16:28 Subjective: no chnages ON.nursing report increasing secretions -: pt remains largley unresponsive - Objective Resuscitation Status: Resuscitation Status DNR:Do Not Resuscitate MAR Reviewed: Yes Vital Signs & Weight: Vital Signs (12 hours) Temp Pulse Resp BP BP Pulse Ox 07/13/17 11:20 94 L 07/13/17 11:00 98.0 F 94 16 123/53 L 89 L 07/13/17 10:14 93 135/65 07/13/17 10:13 93 135/65 07/13/17 08:05 98.8 F 93 20 135/65 97 07/13/17 08:00 98.0 F 94 16 97 Weight Admit Weight 146 lb 11.2 oz Weight 156 lb 7 oz I&O: 07/12/17 07/13/17 07/14/17 06:59 06:59 06:59 Intake Total 3651 5886 1074 Output Total 1300 2075 Balance 2351 3811 1074 Result Diagrams: 07/12/17 05:59 07/13/17 03:54 Additional Labs: Accuchecks 07/13/17 07/13/17 07/12/17 11:08 05:12 19:59 POC Glucose 258 H 79 352 H 07/12/17 16:20 POC Glucose 393 H Laboratory Tests 07/07/17 07/08/17 07/09/17 04:33 03:41 03:30 Sodium 144 154 H 164 H* 07/09/17 07/10/17 07/11/17 13:26 04:16 03:47 Sodium 161 H* 164 H* 157 H 07/12/17 07/13/17 05:59 03:54 Sodium 153 H 148 H Phys Exam - Physical Examination Constitutional: NAD would not respond HEENT: moist MMs oral thrush Neck: no JVD Respiratory: no wheezing, clear to auscultation bilateral crackles at bases Cardiovascular: RRR, no significant murmur Gastrointestinal: soft, no distention, positive bowel sounds Musculoskeletal: pulses present, edema present unresponsive Skin: no rash Dx/Plan (1) Acute metabolic encephalopathy Code(s): G93.41 - METABOLIC ENCEPHALOPATHY Status: Acute Comment: likely multifactorial.UTI and Hypernatremia (2) CARMEN (acute kidney injury) Code(s): N17.9 - ACUTE KIDNEY FAILURE, UNSPECIFIED Status: Acute Comment: Improved. avoid nephrotoxic meds and contrast media, serial creatinine (3) Acute hypernatremia Code(s): E87.0 - HYPEROSMOLALITY AND HYPERNATREMIA Status: Acute Comment: increase D5W IVF,and increase free water replacement per PEG. serial Na+ assessments (4) Septic shock Code(s): A41.9 - SEPSIS, UNSPECIFIED ORGANISM; R65.21 - SEVERE SEPSIS WITH SEPTIC SHOCK Status: Acute Comment: Continue IVF's and monitor BP response, Cont Zosyn 3.375gm IV q6h for Enterococcus UTI, d/c Cefepime (5) Severe dehydration Code(s): E86.0 - DEHYDRATION Status: Acute Comment: Continue IVF's, start free-H2O flushes 200ml PEG tube q4h (6) UTI (urinary tract infection) due to urinary indwelling Colon catheter Code(s): T83.511A - I/I REACT D/T INDWELLING URETHRAL CATHETER, INIT; N39.0 - URINARY TRACT INFECTION, SITE NOT SPECIFIED Status: Acute Qualifiers: Indwelling urinary catheter type: indwelling urethral catheter Comment: Enterococcus in final Ucx results, Zosyn based on Ucx sensitivities, IVF's and monitor output, Colon catheter changed (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 transplanted heart: [place] heart Associated angina: without angina Qualified Code(s): I25.10 - Atherosclerotic heart disease of [place] coronary artery without angina pectoris Comment: Stable. (10) DM type 2 (diabetes mellitus, type 2) Status: Chronic Qualifiers: Diabetes mellitus nursing home insulin use: with long term care administrator use Diabetes mellitus complication status: with hyperglycemia Qualified Code(s): E11.65 - Type 2 diabetes mellitus with hyperglycemia; Z79.4 - care home (current) use of insulin; Z79.4 - care home (current) use of insulin; Z79.4 - long term care pharmacist (current ) use of insulin; Z79.4 - long term care pharmacist (current) use of insulin Comment: Continue insulin regimen with SSI, detemir. Finger stick glucose Q6H (11) Dementia Code(s): F03.90 - UNSPECIFIED DEMENTIA WITHOUT BEHAVIORAL DISTURBANCE Status: Chronic Qualifiers: Dementia type: unspecified type Dementia behavioral disturbance: without behavioral disturbance Qualified Code(s): F03.90 - Unspecified dementia without behavioral disturbance (12) HTN (hypertension) Code(s): I10 - ESSENTIAL (PRIMARY) HYPERTENSION Status: Chronic Qualifiers: Hypertension type: essential hypertension Qualified Code(s): I10 - Essential (primary) hypertension Comment: Home meds on hold due to low BP - Plan colon catheter, continue antibiotics, PT/OT, DVT proph w/SCDs add scopolamine patch for increased secretions. -: Katherine volume OL w all the IVF required for Hypernatremia -: will give 1 dos elasix & reduce IVF rate -: cont TF.cont Difluvcan for Oral thrush -: palliative care .katherine DC tomorrow to [place] w hospice if Na improves * . Review of Systems - Review of Systems Other: unobtainable due to encephalopathy and dementia,katherine vascular - Medications/Allergies Allergies/Adverse Reactions: Allergies Allergy/AdvReac Type Severity Reaction Status Date / Time No Known Drug Allergies Allergy Verified 01/28/15 05:05 Medications: Current Medications Hydrocodone Bitart/Acetaminophen ([place] 5/325) 1 tab PO Q4H PRN PRN Reason: Moderate Pain (4-6) Last Admin: 07/12/17 20:46 Dose: 1 tab Albuterol/Ipratropium (Duoneb) 3 ml NEB Q6H PRN PRN Reason: Dyspnea/Wheezing/SOB Amlodipine Besylate (Norvasc) 10 mg PO DAILY [facility] Last Admin: 07/13/17 10:13 Dose: 10 mg Atenolol (Tenormin) 50 mg PER TUBE BID [facility] Last Admin: 07/13/17 10:14 Dose: 50 mg Atorvastatin Calcium (Lipitor) 20 mg PO HS [facility] Last Admin: 07/12/17 20:26 Dose: 20 mg Dextrose/Water (Dextrose 50%) 25 gm SLOW IVP PRN PRN PRN Reason: Hypoglycemia Finasteride (Proscar) 5 mg PO DAILY [facility] Last Admin: 07/13/17 10:15 Dose: 5 mg Fluconazole (Diflucan) 100 mg PER TUBE DAILY [facility] Stop: 07/18/17 09:01 Fluconazole (Diflucan) 100 mg PER TUBE NOW [facility] Stop: 07/13/17 17:30 Last Admin: 07/13/17 15:55 Dose: Not Given Furosemide (Lasix) 20 mg SLOW IVP NOW [facility] Stop: 07/13/17 18:00 Glucagon (Glucagon) 1 mg IM PRN PRN PRN Reason: Hypoglycemia Dextrose/Water (D5w) 1,000 mls @ 0 mls/hr IV .Q0M PRN; As Directed PRN Reason: Hypoglycemia Dextrose/Water (D5w) 1,000 mls @ 50 mls/hr IV .Q20H [facility] Last Admin: 07/13/17 13:12 Dose: 1,000 mls Insulin Detemir 25 units/ (Miscellaneous Medication) 0.25 mls @ 0 mls/hr [facility] Reason: As Directed Last Admin: 07/13/17 10:15 Dose: 0.25 mls Insulin Detemir 25 units/ (Miscellaneous Medication) 0.25 mls @ 0 mls/hr SC [facility] PRN Reason: As Directed Last Admin: 07/12/17 20:26 Dose: 0.25 mls Insulin Human Lispro (Humalog) 0 units SC .AGGRESSIVE SLIDING PRN; Protocol PRN Reason: AGGRESSIVE SLIDING SCALE Last Admin: 07/13/17 13:11 Dose: 9 unit Lactulose (Lactulose) 20 gm PO DAILYPRN PRN PRN Reason: Constipation Nystatin (Mycostatin) 500,000 units SSW QID [facility] Last Admin: 07/13/17 13:12 Dose: Not Given Ondansetron HCl (Zofran) 4 mg IVP Q6H PRN PRN Reason: Nausea/Vomiting Pantoprazole Sodium (Protonix) 40 mg IVP 2100 [facility] Last Admin: 07/12/17 20:25 Dose: 40 mg Scopolamine (Transderm Scop) 1.5 mg TOP Q3D [facility]ORIAN Sodium Chloride (Flush - Normal Saline) 10 ml IVF Q12HR [facility]ORIAN Last Admin: 07/13/17 10:16 Dose: Not Given Sodium Chloride (Flush - Normal Saline) 10 ml IVF PRN PRN PRN Reason: Saline Flush
[2017-07-13] MEDS: Atorvastatin Calcium 20 MG TAB PO SCH (22:22)
[2017-07-13] MEDS: Pantoprazole 40 MG VIAL IVP SCH (22:23)
[2017-07-14 05:07] LABS: Anion Gap 8 mmol/L (10-20); BUN (Urea Nitrogen) 31 mg/dL (8.4-25.7); Calc. Creatinine Clearance 74 mL/min (70-130); Calcium 8.4 mg/dL (7.8-10.44); Carbon Dioxide 32 mmol/L (23-31); Chloride 106 mmol/L (98-107); Estimated GFR-MDRD Greater than 90; Glucose 256 mg/dL (83-110); Potassium 4.2 mmol/L (3.5-5.1); Sodium 142 mmol/L (136-145)
[2017-07-14] MEDS ORDERED: Fluconazole 40 mg/ml Oral Suspension PER TUBE SCH (09:00)
[2017-07-14] MEDS: Atenolol 50 MG TAB PER TUBE SCH (10:01)
[2017-07-14] MEDS: Amlodipine 10 MG TAB PO SCH (10:01)
[2017-07-14] MEDS: Finasteride 5 MG TAB PO SCH (10:03)
[2017-07-14] MEDS: Insulin Detemir 100 UNITS/ML 25 UNITS in Pre-Filled Syringe 1 EACH SC SCH (10:03)
[2017-07-14] MEDS: Nystatin 500,000 UNITS/5 ML UDCUP SSW SCH ×2 (10:04→14:18)
--- NOTE | 2017-07-14 11:28 | PDOC.PN ---
- Subjective Encounter Start Date: 07/14/17 Encounter Start Time: 11:27 Subjective: unresponsive to verbal/ tactile stimuli - Objective Resuscitation Status: Resuscitation Status DNR:Do Not Resuscitate Vital Signs & Weight: Vital Signs (12 hours) Temp Pulse Resp BP BP Pulse Ox 07/14/17 10:01 101 H 138/59 L 07/14/17 07:59 99.8 F H 101 H 20 138/59 L 99 Weight Admit Weight 146 lb 11.2 oz Weight 156 lb 7 oz I&O: 07/13/17 07/14/17 07/15/17 06:59 06:59 06:59 Intake Total 5886 7068 Output Total 6998 3600 Balance 3811 5073 Result Diagrams: 07/12/17 05:59 07/14/17 04:12 Additional Labs: Accuchecks 07/14/17 07/13/17 07/13/17 04:58 21:12 17:00 POC Glucose 250 H 293 H 287 H Phys Exam - Physical Examination Neck: no JVD Respiratory: clear to auscultation bilateral Cardiovascular: RRR, no significant murmur Gastrointestinal: soft, non-tender, positive bowel sounds Musculoskeletal: edema present Dx/Plan (1) CARMEN (acute kidney injury) Code(s): N17.9 - ACUTE KIDNEY FAILURE, UNSPECIFIED Status: Resolved Comment : Improved. avoid nephrotoxic meds and contrast media, serial creatinine (2) Acute hypernatremia Code(s): E87.0 - HYPEROSMOLALITY AND HYPERNATREMIA Status: Acute Comment: increase D5W IVF,and increase free water replacement per PEG. serial Na+ assessments (3) Acute metabolic encephalopathy Code(s): G93.41 - METABOLIC ENCEPHALOPATHY Status: Acute Comment: likely multifactorial.UTI and Hypernatremia (4) Septic shock Code(s): A41.9 - SEPSIS, UNSPECIFIED ORGANISM; R65.21 - SEVERE SEPSIS WITH SEPTIC SHOCK Status: Acute Comment: Continue IVF's and monitor BP response, Cont Zosyn 3.375gm IV q6h for Enterococcus UTI, d/c Cefepime (5) Severe dehydration Code(s): E86.0 - DEHYDRATION Status: Acute Comment: Continue IVF's, start free-H2O flushes 200ml PEG tube q4h (6) UTI (urinary tract infection) due to urinary indwelling [place] catheter Code(s): T83.511A - I/I REACT D/T INDWELLING URETHRAL CATHETER, INIT; N39.0 - URINARY TRACT INFECTION, SITE NOT SPECIFIED Status: Acute Qualifiers: Indwelling urinary catheter type: indwelling urethral catheter Comment: Enterococcus in final Ucx results, Zosyn based on Ucx sensitivities, IVF's and monitor output, [place] catheter changed (7) 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 Feeding tube in place. On Statins. To start TF once given go-ahead by Surgery. (10) HTN (hypertension) Code(s): I10 - ESSENTIAL (PRIMARY) HYPERTENSION Status: Chronic Qualifiers: Hypertension type: essential hypertension Qualified Code(s): I10 - Essential (primary) hypertension Comment: Home meds on hold due to low BP (11) Hypothyroidism Code(s): E03.9 - HYPOTHYROIDISM, UNSPECIFIED Status: Chronic Qualifiers: Hypothyroidism type: unspecified Qualified Code(s): E03.9 - Hypothyroidism , unspecified - Plan cont tube feedins -: cont antihpertensives per tube -: cont iv d5w -: cont accu ss -: discharge planning * .
[2017-07-14] MEDS: HumaLOG 300 UNITS/3 ML VIAL SC PRN (12:45)
--- NOTE | 2017-07-14 12:48 | DIS ---
TRANSFER OF CARE NOTE PRIMARY CARE PHYSICIAN: Dr. Kassandra Amezquita DATE OF ADMISSION: 07/06/2017 DATE OF DISCHARGE: 07/14/2017 FINAL DIAGNOSES: 1. Acute respiratory failure with hypoxia. 2. Metabolic encephalopathy. 3. Hypernatremia. 4. Acute kidney failure. 5. Sepsis syndrome, organism unknown. 6. Cerebral hemorrhage old with right hemiplegia on the dominant side. 7. Dehydration. DISCHARGE MEDICATIONS: Proscar 5 mg per tube daily, atenolol 50 mg per tube b.i.d., Norvasc 10 mg pe r tube, Lipitor 20 mg per tube, Scopolamine patch 1.5 mg topical every 3 days, lactulose 20 grams per tube daily p.r.n., DuoNeb q.6 hourly p.r.n., insulin detemir 25 units a.m., 25 units p.m., fluconazo le oral suspension 100 mg per tube daily. DIET: The patient is on a liquid diet per tube with free water flushes. CODE STATUS: DNR. DISPOSITION: He is going to the [facility] on hospice. PENDING AT THE TIME OF DISCHARGE: Nothing. HOSPITAL COURSE: The patient was admitted to the [facility] through [facility] with a recent intracranial hemorrhage, nonverbal, aphasic. He has a PEG tube. The pa tient was hypoxic, placed in IMCU, given fluid boluses. The patient was treated with antibiotics. H e had evidence of acute kidney injury with creatinine 1.58, 1.62, BUN 137. Initial sodium was 144. Blood sugars were in the 200s-300s range. Lactic acid was normal. White count was 15.7, hemoglobin 10.6, platelet count 461,000. The patient had a urine culture done at an outside ER which showed Ent erococcus susceptible to ampicillin, amoxicillin, nitrofurantoin. The patient was treated with IV ant ibiotics. The patient subsequently had a sodium of 164. He was treated with free water. It has com e down to 148. His creatinine dropped down to normal at 0.8, BUN dropped down to 36. He was seen by Palliative Care and is going to [facility] on hospice. During his hospital stay, he was seen by Dr. Willy Arboleda, Nephrology, Dr. Trey Alonso, Pulmonology. He has remained unresponsive. H is cardiorespiratory exam is grossly normal. He has had no procedures. He is being transferred to [facility] under the care of Dr. Kassandra Amezquita for continuing care with hospice. Prog nosis guarded. Thirty-five minutes spent preparing this discharge.
[2017-07-14] MEDS: Dextrose 5% in Water 1,000 ML IV SCH (14:22)
[2017-07-14 18:50] VITALS: BP 125/65; TEMP 97.6
== END 2017-07-14 15:45 | DRG 698 ==
LOC: ERS 14:32 → IMCU/EMU 19:35 → T4-A 07-11 15:08
PROVIDERS: ADMIT Internal Medicine; ATTEND Internal Medicine
DX: T83.511A Infection and inflammatory reaction due to indwelling urethral catheter, initial encounter (principal); A41.9 Sepsis, unspecified organism; J96.01 Acute respiratory failure with hypoxia; R65.21 Severe sepsis with septic shock; E43 Unspecified severe protein-calorie malnutrition; N17.9 Acute kidney failure, unspecified; G93.41 Metabolic encephalopathy; E87.0 Hyperosmolality and hypernatremia; I69.251 Hemiplegia and hemiparesis following other nontraumatic intracranial hemorrhage affecting right dominant side; E11.65 Type 2 diabetes mellitus with hyperglycemia; E86.0 Dehydration; R13.12 Dysphagia, oropharyngeal phase; N39.0 Urinary tract infection, site not specified; Z51.5 Encounter for palliative care; I69.191 Dysphagia following nontraumatic intracerebral hemorrhage; E03.9 Hypothyroidism, unspecified; Z95.5 Presence of coronary angioplasty implant and graft; Z79.4 Long term (current) use of insulin; Z68.23 Body mass index [BMI] 23.0-23.9, adult; R31.9 Hematuria, unspecified; B95.2 Enterococcus as the cause of diseases classified elsewhere; I69.120 Aphasia following nontraumatic intracerebral hemorrhage; Z93.1 Gastrostomy status; I25.10 Atherosclerotic heart disease of native coronary artery without angina pectoris; Z90.49 Acquired absence of other specified parts of digestive tract; Z87.891 Personal history of nicotine dependence; E78.2 Mixed hyperlipidemia; K21.9 Gastro-esophageal reflux disease without esophagitis; N40.0 Benign prostatic hyperplasia without lower urinary tract symptoms; E11.22 Type 2 diabetes mellitus with diabetic chronic kidney disease; I12.9 Hypertensive chronic kidney disease with stage 1 through stage 4 chronic kidney disease, or unspecified chronic kidney disease; N18.9 Chronic kidney disease, unspecified
CPT/HCPCS: 36415; 36416; 74176; 80048; 83605; 85007; 85025; 85027; 93970; 96360; A4216; C9113; J0692; J1815; J1940; J2543; J7050